=== PATIENT | female | born 1945 | race Caucasian/White ===

== ENCOUNTER → 2016-08-22 | Outpatient (CLI) | payer OTHER ==
[~2016-08-22] MED LIST: ASPI81CH2 PO; CLON1TAB21 PO; CYAN3INJ; DUONEB 0.5-2.5MG/3ML; ERGO1CAP35 PO; FERR325T5 PO; FURO-85 PO; IPRA1AER2 INH; MELATAB2 PO; NITR0.4S UT; NRT/50 PO; NSNN50; RANI1TAB; RANI1TAB77 PO; RQP/2 PO; TIOTCAP INH; TNR25X PO; TOLT1TAB PO; TRAM-453 PO; VENL150T33 PO
--- NOTE | 2016-08-22 10:45 | DIAGNOSTIC IMAGING REPORT ---
RIGHT HAND MIN 3 VIEWS ROUTINE CLINICAL HISTORY: Right hand pain COMPARISON: None. DISCUSSION: The bones are osteopenic. There are severe osteoarthritic changes at the level of the first carpal metacarpal joint. No acute fractures are visualized. There is no erosive disease. IMPRESSION: 1. Osteopenia 2. No acute fractures 3. Severe osteoarthritic changes at the level of the first carpometacarpal joint Electronically signed by: Bryant Calle M.D. 08/22/2016 10:43 AM Dictated Date/Time: 08/22/2016 10:42 AM
--- NOTE | 2016-08-22 10:55 | DIAGNOSTIC IMAGING REPORT ---
LEFT HAND 3 VIEWS HISTORY: M48.06 Lumbar spinal [id number] Pain in joint, handM85.80 O COMPARISON: None. FINDINGS: There is no fracture or dislocation. Soft tissues are unremarkable. Diffuse osteopenia. No bony erosions identified. Severe osteoarthritis at the first carpometacarpal joint with [id number] articulation, subchondral sclerosis, and large marginal osteophytes. There is approximately 4 mm of radial subluxation of the first metacarpal in relation to the trapezium bone. Mild cartilage space narrowing seen within the DIP, PIP, and MCP joints which is also consistent with degenerative change. IMPRESSION: 1. Severe osteoarthritis at the first carpometacarpal joint. 2. No acute fractures. 3. Osteopenia. Electronically signed by: Ye Ayala M.D. 08/22/2016 10:53 AM Dictated Date/Time: 08/22/2016 10:42 AM
== END | disposition home or self-care (01) ==
LOC: C.RAD1850 10:25
PROVIDERS: ATTEND Internal Medicine Rheumatology
DX: M25.549 Pain in joints of unspecified hand (principal); M48.06 Spinal stenosis, lumbar region; M85.80 Other specified disorders of bone density and structure, unspecified site

== ENCOUNTER → 2017-06-24 | Outpatient (CLI) | payer OTHER ==
[~2017-06-24] MED LIST changes: -TOLT1TAB PO; +TOLT1TAB17 PO
--- NOTE | 2017-06-24 11:25 | DIAGNOSTIC IMAGING REPORT ---
CERVICAL SPINE 5 VIEWS CLINICAL HISTORY: Osteoarthritis. Upper extremity paresthesias. FINDINGS: AP, lateral, bilateral oblique, and odontoid views of the cervical spine are obtained. No prior studies are available for comparison at the time of dictation. The skeletal structures are osteopenic. There is no radiographic evidence of fracture or malalignment. The odontoid process and lateral masses are intact as seen on the open-mouth view. The spinolaminar line is preserved. Vertebral body height is maintained throughout the cervical spine. Minimal retrolisthesis is seen at C4-C5. Alignment is otherwise preserved. Anterior osteophytes are seen throughout. There is bilateral multilevel neural foraminal stenosis identified on the oblique views. This is greatest in the mid to lower cervical region. The spinous processes are intact. There is moderate disc space narrowing seen from C4-C5 through C6-C7. Posterior disc osteophyte complexes at these levels likely contribute to acquired compromise of the central canal. The prevertebral soft tissues are within normal limits. The patient is edentulous. Partially imaged apical lung parenchyma appears clear. IMPRESSION: 1. No acute bony abnormality is identified involving the cervical spine. 2. Osteopenia and multilevel cervical spondylosis as detailed above. Dictated: 06/24/2017 11:03 AM Transcribed: 06/24/2017 11:25 AM [facility] Electronically signed by: Alex Swift M.D. 06/24/2017 11:33 AM Dictated Date/Time: 06/24/2017 11:03 AM
== END | disposition home or self-care (01) ==
LOC: C.RAD 10:31
PROVIDERS: ATTEND Neuromusculoskeletal Medicine & OMM
DX: R20.2 Paresthesia of skin (principal); M15.9 Polyosteoarthritis, unspecified; M85.88 Other specified disorders of bone density and structure, other site; M47.812 Spondylosis without myelopathy or radiculopathy, cervical region

== ENCOUNTER → 2017-08-15 | Outpatient (CLI) | payer OTHER ==
--- NOTE | 2017-08-15 14:34 | DIAGNOSTIC IMAGING REPORT ---
MRI OF THE CERVICAL SPINE WITHOUT IV CONTRAST CLINICAL HISTORY: Cervical cord compression. COMPARISON STUDY: Radiographs of the cervical spine dated 06/24/2017. TECHNIQUE: MRI of the cervical spine is performed utilizing various T1 and T2-weighted sequences in the axial and sagittal planes. IV contrast was not administered for this examination. FINDINGS: Cervical spine: Marrow signal intensity is heterogeneous. Vertebral body height is maintained throughout the cervical spine. Minimal retrolisthesis is seen at C4-C5. Alignment is otherwise preserved. There is straightening of the cervical lordosis. The atlantodental articulation appears maintained. The spinous processes are intact. No destructive bony lesion is clearly seen. Intervertebral discs: Degenerative disc desiccation and loss of height is seen throughout the cervical spine. Loss of height is moderate to severe at C4-C5 and C7-T1. Loss of height is moderate at C5-C6 and C6-C7. Spinal cord: The visualized spinal cord is normal in morphology and signal intensity. C2-C3: A tiny posterior disc osteophyte complex is eccentric to the right. Uncovertebral and facet arthropathy cause moderate right and minimal left neural foraminal stenosis. C3-C4: A posterior disc osteophyte complex effaces the ventral subarachnoid space. Uncovertebral and facet arthropathy cause moderate left and mild to moderate right neural foraminal stenosis. C4-C5: A posterior disc osteophyte complex effaces the ventral cord. The minimum AP canal diameter measures 6 mm. Uncovertebral and facet arthropathy cause severe bilateral neural foraminal stenosis, left greater than right. C5-C6: A posterior disc osteophyte complex abuts the ventral cord. The minimum AP canal diameter measures 5 mm. Uncovertebral and facet arthropathy cause severe bilateral neural foraminal stenosis. C6-C7: A posterior disc osteophyte complex abuts the ventral cord. The minimum AP canal diameter measures 6 mm. Uncovertebral and facet arthropathy cause moderate to severe left greater than right neural foraminal stenosis. C7-T1: A posterior disc osteophyte complex abuts the ventral cord. The neural foramina are patent. Soft tissues: The prevertebral and paraspinous soft tissues are within normal limits. Brain parenchyma: Chronic lacunar infarct is suggested in the christin. The cerebellar tonsils are normal in configuration. Bilateral ocular lens implants are noted. IMPRESSION: 1. Multilevel cervical spondylosis as above. This is greatest from C4-C5 through C6-C7. See discussion for detailed level by level analysis. 2. The cervical spinal cord is normal in morphology and signal intensity. 3. No destructive bony process is seen. Dictated: 08/15/2017 2:09 PM Transcribed: 08/15/2017 2:33 PM [facility] Electronically signed by: Alex Swift M.D. 08/15/2017 2:34 PM Dictated Date/Time: 08/15/2017 2:09 PM
== END | disposition home or self-care (01) ==
LOC: C.MRI 13:06
PROVIDERS: ATTEND Orthopaedic Surgery Orthopaedic Surgery of the Spine
DX: M47.812 Spondylosis without myelopathy or radiculopathy, cervical region (principal); G95.20 Unspecified cord compression

== ENCOUNTER 2017-09-15 05:21 | Observation (INO) | payer OTHER ==
[2017-09-03 13:27] VITALS: BMI 34.0
[2017-09-03 14:53] LABS: BASO % 0.5 %; BASO ABS # 0.03 K/uL (0-0.2); EOS % 1.5 %; HEMATOCRIT 33.3 % (37-47); HEMOGLOBIN 10.5 g/dL (12.0-16.0); IG# 0.01 K/uL (0.00-0.02); LYMPH % 25.9 %; LYMPH ABS # 1.72 K/uL (1.2-3.4); MEAN CELL VOLUME 88.1 fL (80-100); MEAN CORPUSCULAR HEMOGLOBIN 27.8 pg (25-34); MEAN CORPUSCULAR HGB CONC 31.5 g/dl (32-36); MEAN PLATELET VOLUME 10.1 fL (7.4-10.4); MONO % 5.7 %; MONO ABS # 0.38 K/uL (0.11-0.59); NEUT % 66.2 %; PLATELET COUNT 321 K/uL (130-400); RED CELL DISTRIBUTION WIDTH CV 13.9 % (11.5-14.5); RED CELL DISTRIBUTION WIDTH SD 44.7 fL (36.4-46.3); WHITE BLOOD COUNT 6.64 K/uL (4.8-10.8)
[2017-09-03 15:06] LABS: PTT PATIENT 26.4 SECONDS (21.0-31.0)
[2017-09-03 15:15] LABS: CALCIUM 8.6 mg/dl (8.5-10.1); CREATININE 0.83 mg/dl (0.60-1.20); POTASSIUM 3.7 mmol/L (3.5-5.1)
--- NOTE | 2017-09-03 15:20 | PAT Medication Instructions ---
Service Date Sep 03, 2017. Current Home Medication List Aspirin (Aspirin), 1 TAB PO HS Atenolol (Atenolol), 25 MG PO HS Clonazepam (Clonazepam Odt), 1 MG PO HS Ergocalciferol (Vitamin D 18226 Unit), 1 TAB PO every other week Ferrous Sulfate (Ferrous Sulfate), 325 MG PO BID Furosemide (Lasix), 20 MG PO UD PRN for prn Home O2 Therapy (Oxygen), 2.5 LITERS NA HS Ipratropium-Albuterol (Combivent Respimat), 2 INHA INH UD PRN for prn Melatonin (Melatonin Maximum Strengt), 5 MG PO HS Nitroglycerin (Nitrostat), 0.4 MG UT PRN Nortriptyline HCl (Nortriptyline HCl), 50 MG PO HS Oxycodone/Acetaminophen 10MG/325MG (Percocet 10MG/325MG), 1 TAB PO UD PRN for Pain Ranitidine Hcl (Acid Assistant Front Office Manager Maximum Stre), 1 TAB PO UD PRN for hx gastric bypass surgery Ropinirole Hydrochloride (Requip), 2 MG PO HS Tolterodine Tartrate (Detrol), 1 MG PO BID Tramadol Hcl (Ultram), 50 MG PO UD PRN for Pain Venlafaxine Hcl (Effexor), 75 MG PO HS [Duoneb 0.5-2.5MG/3ML], Unknown Dose UD PRN for prn [b12 inj], 1 DOSE INJ 1xmonth [nasonex], 1 SPRAY MINA UD Medication Instructions For Your Scheduled Surgery - Check with surgeon and prescribing physician for instructions: Aspirin (Aspirin), 1 TAB PO HS - Continue as directed: [nasonex], 1 SPRAY MINA UD [b12 inj], 1 DOSE INJ 1xmonth Ergocalciferol (Vitamin D 68449 Unit), 1 TAB PO every other week - Hold the following medications 24 hours prior to surgery: Ropinirole Hydrochloride (Requip), 2 MG PO HS - Hold the following medications the morning of surgery: Ferrous Sulfate (Ferrous Sulfate), 325 MG PO BID Furosemide (Lasix), 20 MG PO UD PRN for prn Ranitidine Hcl (Acid Assistant Front Office Manager Maximum Stre), 1 TAB PO UD PRN for hx gastric bypass surgery Tolterodine Tartrate (Detrol), 1 MG PO BID - Take the following medications the morning of surgery with a sip of water: [Duoneb 0.5-2.5MG/3ML], Unknown Dose UD PRN for prn (if needed) Tramadol Hcl (Ultram), 50 MG PO UD PRN for Pain (okay to take up to 4 hours prior to surgery if needed) Oxycodone/Acetaminophen 10MG/325MG (Percocet 10MG/325MG), 1 TAB PO UD PRN for Pain (okay to take up to 4 hours prior to surgery if needed) Nitroglycerin (Nitrostat), 0.4 MG UT PRN (if needed) Ipratropium-Albuterol (Combivent Respimat), 2 INHA INH UD PRN for prn (if needed ) - Take the following medications as scheduled the night before surgery: [Duoneb 0.5-2.5MG/3ML], Unknown Dose UD PRN for prn (if needed) Venlafaxine Hcl (Effexor), 75 MG PO HS Tramadol Hcl (Ultram), 50 MG PO UD PRN for Pain (if needed) Oxycodone/Acetaminophen 10MG/325MG (Percocet 10MG/325MG), 1 TAB PO UD PRN for Pain (if needed) Tolterodine Tartrate (Detrol), 1 MG PO BID Ranitidine Hcl (Acid Assistant Front Office Manager Maximum Stre), 1 TAB PO UD PRN for hx gastric bypass surgery (if needed) Nortriptyline HCl (Nortriptyline HCl), 50 MG PO HS Nitroglycerin (Nitrostat), 0.4 MG UT PRN (if needed) Melatonin (Melatonin Maximum Strengt), 5 MG PO HS Home O2 Therapy (Oxygen), 2.5 LITERS NA HS Ipratropium-Albuterol (Combivent Respimat), 2 INHA INH UD PRN for prn (if needed ) Furosemide (Lasix), 20 MG PO UD PRN for prn (if needed) Ferrous Sulfate (Ferrous Sulfate), 325 MG PO BID Atenolol (Atenolol), 25 MG PO HS Clonazepam (Clonazepam Odt), 1 MG PO HS If you have any questions please call us at [phone] or [phone] or [phone]
--- NOTE | 2017-09-14 18:44 | HISTORY & PHYSICAL EXAMINATION ---
DATE OF ADMISSION: 09/15/2017 CHIEF COMPLAINT: Neck pain, arm pain, numbness, tingling and weakness. HISTORY OF PRESENT ILLNESS: Lurdes is pleasant, she is 72, complaints of numbness and tingling upper extremity, 4 months in duration without injury, worsening, a true progressive neurological deficit. She is right hand dominant. She has minimal use of her left arm. PAST MEDICAL HISTORY: Rheumatoid arthritis, depression, numbness, tingling, anxiety, positive stress test. No heart disease, kidney disease, history of carcinoma. SOCIAL HISTORY: Nonsmoker, non-ET[employer] user. PAST SURGICAL HISTORY: Include lumbar spine surgeon in the past. ALLERGIES: Negative. CURRENT MEDICATIONS: Not listed. REVIEW OF SYSTEMS: She denies any blurred vision, double vision, tinnitus, vertigo. Denies chest pain, palpitations. No asthma, wheezing, shortness of breath. No nausea, vomiting, urgency, frequency, dysuria. Major complaint is her neck, arm and upper extremity which is musculoskeletal. PHYSICAL EXAMINATION: VITAL SIGNS: Blood pressure 130/80, pulse of 80, regular. Pulse is 80 beats per minute and afebrile. CARDIAC: Normal S1, S2, no S3. LUNGS: Clear. No rales, rhonchi, or wheezing. ABDOMEN: Soft, nontender. SKIN INTEGUMENTARY: Intact. No rashes or zoster rashes. No adenopathy. EXTREMITIES: She has pain with flexion, extension of cervical spine. Positive Spurling maneuver, positive Lhermitte's sign. She has 5/5 strength on the right. NEUROLOGIC: She has weakness of the biceps, triceps and wrist extensors strength on the left. She has no upper motor or neuron issues. She has absent reflexes left upper extremity. She has loss of sensation. IMAGES: Demonstrate spinal cord compression, cervical spine,C4-C5, C5-C6, and C6-C7. IMPRESSION: Cord compression. PLAN: Includes anterior cervical discectomy and fusion C4-C5, C5-C6 and C6-C7 with iliac crest bone graft.
[~2017-09-15] VITALS: Ht 149.9 cm; Wt 76.7 kg
[2017-09-15] VITALS (15 sets, daily range): BP systolic 143–170; BP diastolic 79–104; PULSE 71–96; TEMP 36.3–37; O2SAT 93–99; Ht 149.9 cm; Wt 76.7 kg
[~2017-09-15 05:21] MED LIST changes: -CYAN3INJ; -ERGO1CAP35 PO; +ERGO500011 PO; -NSNN50; +OXGN; +OXYC-106 PO; -RANI1TAB; +RANI1TAB PO; -RANI1TAB77 PO; -TIOTCAP INH; -VENL150T33 PO; +VENL75TA4 PO; +[UNRECOGNIZED DRUG - OTHER] INJ; +nasonex NAE
[2017-09-15] MEDS ORDERED: CEFAZOLIN 2000MG IV PUSH 15 ML IV SCH (06:00)
[2017-09-15] MEDS ORDERED: SODIUM CHLORIDE 0.9% 1000ML 1,000 ML IV SCH ×2 (06:00→12:15)
[2017-09-15] MEDS ORDERED: LACTATED RINGER'S 1000ML 1,000 ML IV SCH (06:00)
[2017-09-15] MEDS ORDERED: THROMBIN FOR SOLN 20000 UNIT KIT ONE (06:50)
[2017-09-15] MEDS ORDERED: GELATIN SPONGE SZ 100 ONE (06:50)
[2017-09-15] MEDS ORDERED: BACITRACIN 50000 UNIT VIAL ONE (06:50)
[2017-09-15] MEDS ORDERED: BUPIVACAINE/EPINEPHRINE 0.5% MPF 1:200,000 30 ML VIAL ONE (06:50)
[2017-09-15] MEDS ORDERED: ONDANSETRON INJ 2 MG/ML 2 ML VIAL ONE ×2 (06:52→09:38)
[2017-09-15] MEDS ORDERED: GLYCOPYRROLATE INJ 0.2 MG/ML VIAL ONE ×2 (06:52→09:38)
[2017-09-15] MEDS ORDERED: SODIUM CHLORIDE 0.9% INJ 10 ML VIAL ONE (06:52)
[2017-09-15] MEDS ORDERED: PROPOFOL IV EMULSION 10 MG/ML 20 ML VIAL IV ONE (06:52)
[2017-09-15] MEDS ORDERED: NEOSTIGMINE METHYLSULFATE 1 MG/ML 10ML VIAL ONE (06:52)
[2017-09-15] MEDS ORDERED: FENTANYL CITRATE INJ 50 MCG/1 ML 2 ML VIAL ONE (06:52)
[2017-09-15] MEDS ORDERED: LIDOCAINE HCL 2% 2 ML VIAL (20MG/ML) ONE (06:52)
[2017-09-15] MEDS ORDERED: LARYING-O-JET KIT (LTA) ONE (06:52)
[2017-09-15] MEDS ORDERED: DEXAMETHASONE SOD INJ 4 MG/ML VIAL ONE (06:52)
[2017-09-15] MEDS ORDERED: MIDAZOLAM HCL 1 MG/ML 2ML VIAL ONE (06:52)
[2017-09-15] MEDS ORDERED: HYDROmorphone INJ 2 MG/ML SYR/VIAL ONE (06:53)
--- NOTE | 2017-09-15 07:27 | History & Physical Bridge Note ---
H&P Re-Evaluation Bridge Note: I have examined the patient, reviewed the History & Physical and in the interval since the performance of the History & Physical I have noted the following changes of clinical significance: No changes noted
[2017-09-15] MEDS ORDERED: ONDANSETRON INJ 2 MG/ML 2 ML VIAL IV PRN ×2 (08:00→10:30)
[2017-09-15] MEDS ORDERED: ATROPINE SULFATE 0.1 MG/ML 5ML SYR IV PRN (08:00)
[2017-09-15] MEDS ORDERED: PHENYLEPHRINE 100MCG/ML 5ML SYR IV PRN (08:00)
[2017-09-15] MEDS ORDERED: EpHEDrine SULFATE INJ 50 MG/ML AMP IV PRN (08:00)
[2017-09-15] MEDS ORDERED: LABETALOL HCL IV 5 MG/ML 20ML IV ONE (08:38)
[2017-09-15] MEDS ORDERED: PHENYLEPHRINE 100MCG/ML 5ML SYR ONE (09:38)
[2017-09-15] MEDS ORDERED: EpHEDrine SULFATE 50MG/5ML SYR ONE (09:38)
[2017-09-15] MEDS ORDERED: ROCURONIUM BROMIDE 10 MG/ML 5 ML VIAL IV ONE (09:57)
--- NOTE | 2017-09-15 09:58 | DIAGNOSTIC IMAGING REPORT ---
SPINE ONE VIEW, ANY LEVEL CLINICAL HISTORY: 72 years-old Female presenting with ACDF C4-7. TECHNIQUE: 2 fluoroscopic spot image(s) obtained as part of an intraoperative procedure. COMPARISON: None. FINDINGS/IMPRESSION: Postsurgical changes of anterior cervical discectomy and fusion with interbody spacers at C4-C7. C7 vertebral body is not well visualized. Grossly normal anatomic alignment. Please see surgical report for further details. Fluoroscopy dosage (mGy): 1.89. Fluoroscopy time: 6.9 seconds. Number of fluoroscopic spot images: 2. Electronically signed by: Willian Sebastian M.D. 09/15/2017 9:57 AM Dictated Date/Time: 09/15/2017 9:55 AM
--- NOTE | 2017-09-15 10:11 | [facility] Post Operative Brief Note ---
Immediate Operative Summary Operative Date Sep 15, 2017. Pre-Operative Diagnosis Degenerative Disc Disease Post-Operative Diagnosis Same as preop Procedure(s) Performed Anterior Cervical Discectomy and Fusion C4-C7 with Left Iliac Crest Bone Graft Surgeon Dr. Sona Karimi Foaming Machine Operator Surgeon(s) Angela ALONZO Estimated Blood Loss 40ml Findings Consistent with Post-Op Diagnosis Specimens None Anesthesia Type General Complication(s) none Disposition Accompanied Pt To Recover: no Disposition: Recovery Room / PACU
[2017-09-15] MEDS ORDERED: LORAZEPAM INJ 0.5 MG in SYRINGE 0.75 ML IV PRN (10:30)
[2017-09-15] MEDS ORDERED: FUROSEMIDE 20 MG TAB PO PRN (10:30)
[2017-09-15] MEDS ORDERED: RACEPINEPHRINE 2.25% NEBU SOLN 0.5 ML VIAL INH PRN (10:30)
[2017-09-15] MEDS ORDERED: DEXAMETHASONE INJ 8 MG in SYRINGE 0 ML IV PRN (10:30)
[2017-09-15] MEDS ORDERED: NALOXONE HCL 0.4 MG/1 ML VIAL/CARP IV PRN (10:30)
[2017-09-15] MEDS ORDERED: MAGNESIUM HYDROXIDE SUSP 30 ML UDC PO PRN (10:30)
[2017-09-15] MEDS ORDERED: ACETAMINOPHEN IV 1,000 MG in EMPTY BAG 0 ML IV PRN (10:30)
[2017-09-15] MEDS ORDERED: NITROGLYCERIN 0.4 MG SL PER TAB CHARGE UT PRN (10:30)
[2017-09-15] MEDS ORDERED: CEFAZOLIN IV 1,000 MG in DEXTROSE 5% 50ML 50 ML IV SCH (10:30)
[2017-09-15] MEDS ORDERED: RANITIDINE HCL 150 MG TAB PO PRN (10:30)
--- NOTE | 2017-09-15 10:47 | OPERATIVE REPORT ---
DATE OF OPERATION: 09/15/2017 PREOPERATIVE DIAGNOSIS: Spinal cord compression C4-C7, cervical spine. POSTOPERATIVE DIAGNOSIS: Same. PROCEDURE: Included anterior cervical discectomies and fusions, C5-C4, C5-C6, and C6-C7; iliac crest structure allograft, interbody spacers at the associated levels. SURGEON: Dr. Karimi. MACHINE TOOL ELECTRICIAN: Reginald Hernandez PA-C. COMPLICATIONS: Less than 50. COMPLICATIONS: None apparent. DESCRIPTION OF PROCEDURE: The patient was taken to the operating room, a general intubated anesthetic provided to the patient, placed on the operative Leland table. Traction 5 pounds placed in the cervical spine, scrubbed, prepped and draped sterile. Taped off. We commenced with a transverse skin incision roughly at the C5 vertebrae level dissecting the soft tissue. We were able to come in right at the C4-C5 level initially. We did a discectomy at C4-C5, C5-C6 and C6-C7, foraminotomies were back through the posterior longitudinal ligament. I took out every visible piece of disk complied a foraminotomy. I took out osteophytes. I was pleased with the decompression each associated area. We then went to the iliac crest. We harvested a structural autograft. Skin incision, fascial incision and harvested the bone approximately 1 cm in height, 18 mm in depth, and 14 mm across. This was morcellized and placed into the discectomy sites up at the involved levels of the spine. We then measured and used a coalition device, coalition from the [employer]. These were packed with autograft placed into the vacated discectomy sites. Screw placed up, up and down proper positioning. X-rays looked appropriate, screws were locked into place, irrigated and closed in layers cervical spine and iliac crest. Sterile dressings applied. The patient returned to PACU stable. There were no apparent interoperative complications. No medical anesthetic or orthopedic complications. Sponge and needle count correct. I attest to the content of the Intraoperative Record and any orders documented therein. Any exception s are noted below.
[2017-09-15] MEDS: HYDROmorphone INJ 2 MG/ML SYR/VIAL IV PRN ×2 (10:55→11:01)
[2017-09-15] MEDS ORDERED: HYDROmorphone INJ 1 MG/ML SYR IV PRN (11:00)
--- NOTE | 2017-09-15 11:24 | Anesthesiology Progress Note ---
Anesthesia Post Op Note Date & Time Sep 15, 2017 at 11:23 Vital Signs Pain Intensity: 5 Vital Signs Past 12 Hours Date Time Temp Pulse Resp B/P (MAP) Pulse Ox O2 Delivery O2 Flow Rate FiO2 09/15/17 11:10 82 14 168/82 95 Nasal Cannula 4 09/15/17 11:00 86 12 155/91 93 Nasal Cannula 4 09/15/17 10:50 88 21 168/93 98 Nasal Cannula 4 09/15/17 10:40 90 18 180/95 98 Oxymask 10 09/15/17 10:30 98 16 154/113 99 Oxymask 10 09/15/17 10:22 36.0 98 17 188/93 99 Oxymask 10 09/15/17 05:40 37 89 20 170/104 97 Room Air Notes Mental Status: alert / awake / arousable, participated in evaluation Pt Amnestic to Procedure: Yes Nausea / Vomiting: adequately controlled Pain: adequately controlled Airway Patency, RR, SpO2: stable & adequate BP & HR: stable & adequate Hydration State: stable & adequate Anesthetic Complications: no major complications apparent
[2017-09-15] MEDS ORDERED: IV FLUIDS COMPLETED PRN (11:45)
[2017-09-15] MEDS: HYDROmorphone INJ 0.5 MG/0.5 ML SYR IV PRN ×3 (14:46→22:17)
--- NOTE | 2017-09-15 15:00 | Anesthesiology Progress Note ---
Anesthesia Post Op Note Date & Time Sep 15, 2017 at 15:00 Vital Signs Pain Intensity: 9.0 Vital Signs Past 12 Hours Date Time Temp Pulse Resp B/P (MAP) Pulse Ox O2 Delivery O2 Flow Rate FiO2 09/15/17 14:40 36.5 84 14 150/87 98 Nasal Cannula 4.0 Humidified Oxygen 09/15/17 13:41 36.3 93 14 148/85 99 Nasal Cannula 4.0 Humidified Oxygen 09/15/17 12:55 78 14 98 Nasal Cannula 4.0 09/15/17 12:50 87 16 149/92 (111) 97 4.0 09/15/17 12:20 36.4 72 16 153/81 (105) 98 4.0 09/15/17 12:20 36.3 74 14 162/79 98 Nasal Cannula 4.0 Humidified Oxygen 09/15/17 11:50 Nasal Cannula 4.0 Humidified Oxygen 09/15/17 11:50 36.3 84 14 156/89 97 Nasal Cannula 4.0 Humidified Oxygen 09/15/17 11:50 97 Nasal Cannula 4.0 Humidified Oxygen 09/15/17 11:40 68 13 140/75 95 Nasal Cannula 4 09/15/17 11:30 36.0 79 16 158/79 95 Nasal Cannula 4 09/15/17 11:20 80 13 162/84 92 Nasal Cannula 4 09/15/17 11:10 82 14 168/82 95 Nasal Cannula 4 09/15/17 11:00 86 12 155/91 93 Nasal Cannula 4 09/15/17 10:50 88 21 168/93 98 Nasal Cannula 4 09/15/17 10:40 90 18 180/95 98 Oxymask 10 09/15/17 10:30 98 16 154/113 99 Oxymask 10 09/15/17 10:22 36.0 98 17 188/93 99 Oxymask 10 09/15/17 05:40 37 89 20 170/104 97 Room Air Notes Mental Status: alert / awake / arousable, participated in evaluation Pt Amnestic to Procedure: Yes Nausea / Vomiting: adequately controlled Pain: adequately controlled Airway Patency, RR, SpO2: stable & adequate BP & HR: stable & adequate Hydration State: stable & adequate Anesthetic Complications: no major complications apparent
[2017-09-15] MEDS: CEFAZOLIN IV 1,000 MG in SYRINGE 0 ML IV SCH ×2 (15:43→23:07)
[2017-09-15] MEDS ORDERED: NON-FORMULARY MEDICATION (Melatonin (Melatonin Maximum Strengt) 5 MG) PO SCH (21:00)
[2017-09-15] MEDS: ROPINIROLE HCL 1 MG TAB PO SCH (21:00)
[2017-09-15] MEDS ORDERED: NURSING DECISION MEDICATION ORDER SCH (21:30)
[2017-09-15] MEDS: DOCUSATE SODIUM 100 MG CAP PO SCH (21:34)
[2017-09-15] MEDS: FERROUS SULFATE 325 MG TAB PO SCH (21:34)
[2017-09-15] MEDS: VENLAFAXINE HCL XR 75 MG CAPXR PO SCH (21:34)
[2017-09-15] MEDS: ASPIRIN 81 MG CHEW PO SCH (21:35)
[2017-09-15] MEDS: CLONAZEPAM 1 MG TAB PO SCH (21:35)
[2017-09-15] MEDS: TOLTERODINE TARTRATE 1 MG TAB PO SCH (21:35)
[2017-09-15] MEDS: NORTRIPTYLINE HCL 25 MG CAP PO SCH (21:36)
[2017-09-15] MEDS: OXYCODONE HCL IR 5 MG TAB (IMMEDIATE RELEASE) PO PRN (23:04)
[2017-09-16] VITALS (19 sets, daily range): BP systolic 111–143; BP diastolic 72–85; PULSE 63–82; TEMP 36.3–36.7; O2SAT 88–99
[2017-09-16] MEDS: OXYCODONE HCL IR 5 MG TAB (IMMEDIATE RELEASE) PO PRN ×2 (06:30→10:34)
--- NOTE | 2017-09-16 08:24 | Anesthesiology Progress Note ---
Anesthesia Post Op Note Date & Time Sep 16, 2017 at 08:22 Vital Signs Pain Intensity: 2 Vital Signs Past 12 Hours Date Time Temp Pulse Resp B/P (MAP) Pulse Ox O2 Delivery O2 Flow Rate FiO2 09/16/17 07:45 91 Room Air 09/16/17 07:31 73 16 93 Room Air 09/16/17 06:31 36.3 63 16 121/80 94 Room Air 09/16/17 04:50 36.5 65 16 137/82 98 Nasal Cannula 2.0 Humidified Oxygen 09/16/17 03:25 16 88 Room Air 09/16/17 02:58 36.4 81 18 127/79 (95) 93 Nasal Cannula 2.0 09/15/17 23:16 88 16 94 Nasal Cannula 2.0 09/15/17 22:52 36.5 88 18 147/86 (106) 93 Nasal Cannula 2.0 Trach Collar 09/15/17 22:50 Nasal Cannula 2.0 Humidified Oxygen 09/15/17 20:50 36.6 92 16 143/86 98 Nasal Cannula 2.0 Humidified Oxygen Notes Mental Status: alert / awake / arousable Pt Amnestic to Procedure: Yes Nausea / Vomiting: adequately controlled Pain: adequately controlled Airway Patency, RR, SpO2: stable & adequate BP & HR: stable & adequate Hydration State: stable & adequate Anesthetic Complications: no major complications apparent Anesthetic Complications: pt complained of waking up with 10/10 pain after procedure; Now pain is manageable.
[2017-09-16] MEDS: CEFAZOLIN IV 1,000 MG in SYRINGE 0 ML IV SCH (08:34)
[2017-09-16] MEDS: FLUTICASONE PROPIONATE NA SPR 16 GM BTL SCH (08:34)
[2017-09-16] MEDS: DOCUSATE SODIUM 100 MG CAP PO SCH ×2 (08:34→21:48)
[2017-09-16] MEDS: TOLTERODINE TARTRATE 1 MG TAB PO SCH ×2 (08:35→21:49)
[2017-09-16] MEDS: FERROUS SULFATE 325 MG TAB PO SCH ×2 (08:35→21:48)
[2017-09-16] MEDS: HYDROmorphone INJ 0.5 MG/0.5 ML SYR IV PRN (14:05)
[2017-09-16] MEDS: ROPINIROLE HCL 1 MG TAB PO SCH (21:00)
[2017-09-16] MEDS: VENLAFAXINE HCL XR 75 MG CAPXR PO SCH (21:49)
[2017-09-16] MEDS: NORTRIPTYLINE HCL 25 MG CAP PO SCH (21:50)
[2017-09-16] MEDS: ASPIRIN 81 MG CHEW PO SCH (21:50)
[2017-09-16] MEDS: CLONAZEPAM 1 MG TAB PO SCH (21:52)
[2017-09-17] VITALS (24 sets, daily range): BP systolic 121–152; BP diastolic 73–84; PULSE 57–109; TEMP 36.4–36.9; O2SAT 88–98
[2017-09-17] MEDS: OXYCODONE HCL IR 5 MG TAB (IMMEDIATE RELEASE) PO PRN ×3 (00:29→20:59)
[2017-09-17] MEDS ORDERED: BISACODYL 5 MG TABEC PO PRN (06:00)
[2017-09-17] MEDS ORDERED: BISACODYL 10 MG SUPP PR PRN (06:00)
--- NOTE | 2017-09-17 07:41 | ORTHOPEDICS PROGRESS NOTE ---
DATE: 09/17/2017 SUBJECTIVE: She is alert, oriented difficulty swallowing, swelling to her extremities, significant rebound pain. OBJECTIVE: Vital signs stable, afebrile. ASSESSMENT: Postop recovery with swelling in the oral airway. DISPOSITION: We will keep her another 24 hours, put an order for rehab, place her on some Decadron. I am optimistic this will clear up within the next 24-48 hours. She is not stable for discharge.
[2017-09-17] MEDS: FERROUS SULFATE 325 MG TAB PO SCH ×2 (08:19→21:01)
[2017-09-17] MEDS: DOCUSATE SODIUM 100 MG CAP PO SCH ×2 (08:19→21:00)
[2017-09-17] MEDS: FLUTICASONE PROPIONATE NA SPR 16 GM BTL SCH (08:19)
[2017-09-17] MEDS: TOLTERODINE TARTRATE 1 MG TAB PO SCH ×2 (08:21→21:00)
[2017-09-17] MEDS: HYDROmorphone INJ 0.5 MG/0.5 ML SYR IV PRN (10:59)
[2017-09-17] MEDS: DEXAMETHASONE INJ 8 MG in SYRINGE 0 ML IV SCH ×3 (12:37→23:42)
--- NOTE | 2017-09-17 16:14 | Discharge Instructions ---
Discharge Instructions Date of Service Sep 17, 2017. Admission Reason for Admission: Cervical Spondylosis, Cord Compression Discharge Discharge Diagnosis / Problem: same Discharge Goals Goal(s): Improve function Activity Recommendations Activity Limitations: as noted below Lifting Limitations: no more than 5 pounds, gradually increase as tolerated . Current Hospital Diet Patient's current hospital diet: Clear Liquid Diet Discharge Diet Recommended Diet: Clear Liquid Diet, Diabetes Type 2 Diet Procedures Procedures Performed: Anterior Cervical Discectomy and Fusion C4-C7 with Left Iliac Crest Bone Graft Pending Studies Studies pending at discharge: no Medical Emergencies . Who to Call and When: Medical Emergencies: If at any time you feel your situation is an emergency, please call 911 immediately. . Non-Emergent Contact Non-Emergency issues call your: Primary Care Provider . "Provider Documentation" section prepared by Alexis Karimi. . VTE Core Measure Inpt VTE Proph given/why not?: Treatment not indicated
[2017-09-17] MEDS: CLONAZEPAM 1 MG TAB PO SCH (20:59)
[2017-09-17] MEDS: ROPINIROLE HCL 1 MG TAB PO SCH (21:00)
[2017-09-17] MEDS: ASPIRIN 81 MG CHEW PO SCH (21:01)
[2017-09-17] MEDS: VENLAFAXINE HCL XR 75 MG CAPXR PO SCH (21:01)
[2017-09-17] MEDS: NORTRIPTYLINE HCL 25 MG CAP PO SCH (21:01)
[2017-09-18] VITALS (9 sets, daily range): BP systolic 127–149; BP diastolic 75–84; PULSE 55–75; TEMP 36.5–36.7; O2SAT 65–96
[2017-09-18] MEDS: DEXAMETHASONE INJ 8 MG in SYRINGE 0 ML IV SCH ×2 (05:52→11:41)
[2017-09-18] MEDS: FLUTICASONE PROPIONATE NA SPR 16 GM BTL SCH (09:00)
[2017-09-18] MEDS: DOCUSATE SODIUM 100 MG CAP PO SCH (09:00)
[2017-09-18] MEDS: FERROUS SULFATE 325 MG TAB PO SCH (09:00)
[2017-09-18] MEDS: TOLTERODINE TARTRATE 1 MG TAB PO SCH (09:11)
[2017-09-18] MEDS: OXYCODONE HCL IR 5 MG TAB (IMMEDIATE RELEASE) PO PRN ×2 (09:12→13:33)
--- NOTE | 2017-09-18 16:19 | DISCHARGE SUMMARY ---
HISTORY OF PRESENT ILLNESS: Lurdes was seen and evaluated on rounds here today. She is improving, better motion, decreased pain, decreased upper extremity pain and neck pain. Vital signs stable. No confusion, no chest pain or shortness of breath. Wound clean. ASSESSMENT: Reconstructive cervical spine surgery, now day #3 postop. Doing well short run. DISPOSITION: Includes a rehab [facility], appropriate positioning, follow up in the office in about 10 days. Instructions given, precautions given. Cervical collar is to be worn when ambulatory.
[2017-10-02] MEDS ORDERED: CYANOCOBALAMIN 1000 MCG/ML VIAL IM SCH (09:00)
== END 2017-09-18 15:40 ==
LOC: C.ACU 05:21 → C.3E 10:23 → ENRESERV 11:21
PROVIDERS: ADMIT Orthopaedic Surgery Orthopaedic Surgery of the Spine; ATTEND Orthopaedic Surgery Orthopaedic Surgery of the Spine
DX: M47.892 Other spondylosis, cervical region (principal); J44.9 Chronic obstructive pulmonary disease, unspecified; G47.33 Obstructive sleep apnea (adult) (pediatric); I10 Essential (primary) hypertension; E78.5 Hyperlipidemia, unspecified; K21.9 Gastro-esophageal reflux disease without esophagitis; D64.9 Anemia, unspecified; M06.9 Rheumatoid arthritis, unspecified; F32.9 Major depressive disorder, single episode, unspecified; Z91.040 Latex allergy status

== ENCOUNTER → 2017-12-16 | Outpatient (CLI) | payer OTHER ==
--- NOTE | 2017-12-16 11:28 | DIAGNOSTIC IMAGING REPORT ---
MRI OF THE RIGHT SHOULDER CLINICAL HISTORY: Right shoulder pain. Limited range of motion. COMPARISON STUDY: Radiographs of the right shoulder dated 11/27/2017. TECHNIQUE: MRI of the right shoulder was performed utilizing various T1 and T2 weighted sequences in the axial, sagittal, coronal planes. IV contrast was not administered for this examination. The examination is significantly compromised by motion artifact. FINDINGS: Rotator cuff: There is tendinopathy of the supraspinatus tendon with extensive partial thickness tearing. There is a large full-thickness tear of the supraspinatus tendon near the musculotendinous junction. This measures at least 5 mm in length and 7 mm in AP diameter. No musculotendinous retraction is seen. There is tendinopathy with partial is tearing of both the subscapularis and infraspinatus tendons. The teres minor is intact. There is subacromial and subdeltoid bursal fluid. Productive degenerative change is seen at the acromioclavicular joint. Biceps tendon: There is tendinopathy with high-grade partial-thickness tearing of the long head of the biceps tendon. The tendon remains within the bicipital groove. The anchor is maintained. Labrum: There is circumferential tearing/maceration of the glenoid labrum. Shoulder joint: There is no joint effusion. There is thinning of the articular cartilage along the glenoid and humeral head. No full-thickness cartilage defect is identified. Mild arthritic change and marrow edema seen in the greater tuberosity. There is no MRI evidence of fracture. An os acromiale is incidentally noted. There is mild superior subluxation of the humeral head. Musculature and soft tissues: There is generalized atrophy of the regional musculature. This is asymmetrically greater in the supraspinatus. Minimal intramuscular edema is suggested within the body of supraspinatus. IMPRESSION: 1. Motion compromised examination. 2. There is tendinopathy of the supraspinous tendon with extensive partial thickness tearing. A large full-thickness tear is seen as detailed above. No musculotendinous retraction is identified. 3. There is tendinopathy with partial-thickness tearing of the subscapularis and infraspinatus tendons. 4. There is tendinopathy with high-grade partial thickness tearing of the long head of the biceps tendon. 5. There is circumferential maceration/tearing of the labrum. 6. Arthritic change as above. 7. There is slightly asymmetric atrophy of the supraspinatus muscle with mild intramuscular edema identified. Electronically signed by: Alex Swift M.D. 12/16/2017 11:26 AM Dictated Date/Time: 12/16/2017 11:16 AM
== END | disposition home or self-care (01) ==
LOC: C.MRI 10:25
PROVIDERS: ATTEND Orthopaedic Surgery Orthopaedic Surgery of the Spine
DX: M19.011 Primary osteoarthritis, right shoulder (principal); M75.91 Shoulder lesion, unspecified, right shoulder; S46.911A Strain of unspecified muscle, fascia and tendon at shoulder and upper arm level, right arm, initial encounter; X58.XXXA Exposure to other specified factors, initial encounter

== ENCOUNTER → 2017-12-23 | Outpatient (CLI) | payer OTHER ==
[2017-12-23 15:58] LABS: BASO % 0.1 %; BASO ABS # 0.01 K/uL (0-0.2); EOS % 1.2 %; HEMATOCRIT 37.1 % (37-47); IG# 0.02 K/uL (0.00-0.02); LYMPH ABS # 1.71 K/uL (1.2-3.4); MEAN CELL VOLUME 86.9 fL (80-100); MEAN CORPUSCULAR HEMOGLOBIN 28.1 pg (25-34); MEAN CORPUSCULAR HGB CONC 32.3 g/dl (32-36); MEAN PLATELET VOLUME 9.8 fL (7.4-10.4); MONO ABS # 0.34 K/uL (0.11-0.59); NEUT % 74.5 %; NEUT ABS # 6.39 K/uL (1.4-6.5); PLATELET COUNT 342 K/uL (130-400); RED CELL DISTRIBUTION WIDTH CV 15.3 % (11.5-14.5); RED CELL DISTRIBUTION WIDTH SD 48.5 fL (36.4-46.3); WHITE BLOOD COUNT 8.57 K/uL (4.8-10.8)
[2017-12-23 16:28] LABS: BLOOD UREA NITROGEN 26 mg/dl (7-18); CALCIUM 8.4 mg/dl (8.5-10.1); CARBON DIOXIDE 25 mmol/L (21-32); GLUCOSE 160 mg/dl (70-99); POTASSIUM 3.7 mmol/L (3.5-5.1); SODIUM 141 mmol/L (136-145)
== END | disposition home or self-care (01) ==
LOC: C.CPL 15:27
PROVIDERS: ATTEND Orthopaedic Surgery
DX: Z01.812 Encounter for preprocedural laboratory examination (principal); Z01.810 Encounter for preprocedural cardiovascular examination; M75.101 Unspecified rotator cuff tear or rupture of right shoulder, not specified as traumatic

== ENCOUNTER 2018-09-25 10:31 | Inpatient (IN) ==
--- NOTE | 2018-09-02 12:44 | PAT Medication Instructions ---
Medication Instructions Date of Service September 02, 2018 Home Medications HOME O2 THERAPY (Oxygen) 2.5 liters HS aspirin 81 mg PO HS atenolol 25 mg PO HS clonazepam 1 mg PO HS cyanocobalamin (vitamin B-12) 1 dose IM MONTHLY ergocalciferol (vitamin D2) 50,000 unit PO UD ferrous sulfate 325 mg PO BID furosemide 20 mg PO DAILY NEEDED ipratropium-albuterol 3 ml INHALATION QID NEEDED ipratropium-albuterol [Combivent] 1 puff INHALATION Q6H NEEDED ketorolac 10 mg PO Q8H NEEDED melatonin 5 mg PO HS NEEDED mometasone 2 spray INTRANASAL DAILY nortriptyline 50 mg PO HS oxycodone-acetaminophen 1 tab PO Q6H NEEDED ranitidine HCl 150 mg PO Q2D ropinirole 2 mg PO HS tolterodine [Detrol] 1 mg PO BID tramadol 50 mg PO Q6H NEEDED venlafaxine 75 mg PO HS Continue as directed HOME O2 THERAPY (Oxygen) 2.5 liters HS cyanocobalamin (vitamin B-12) 1 dose IM MONTHLY ergocalciferol (vitamin D2) 50,000 unit PO UD ASK your surgeon for instructions ketorolac 10 mg PO Q8H NEEDED STOP taking 24 hours before surgery ropinirole 2 mg PO HS DO NOT take the morning of surgery ferrous sulfate 325 mg PO BID furosemide 20 mg PO DAILY NEEDED mometasone 2 spray INTRANASAL DAILY tolterodine [Detrol] 1 mg PO BID Take morning of surgery With a small sip of water, OTHERWISE NOTHING TO EAT OR DRINK AFTER MIDNIGHT: ipratropium-albuterol 3 ml INHALATION QID NEEDED ipratropium-albuterol [Combivent] 1 puff INHALATION Q6H NEEDED oxycodone-acetaminophen 1 tab PO Q6H NEEDED ranitidine HCl 150 mg PO Q2D tramadol 50 mg PO Q6H NEEDED Take evening before surgery aspirin 81 mg PO HS atenolol 25 mg PO HS clonazepam 1 mg PO HS ferrous sulfate 325 mg PO BID melatonin 5 mg PO HS NEEDED nortriptyline 50 mg PO HS oxycodone-acetaminophen 1 tab PO Q6H NEEDED tolterodine [Detrol] 1 mg PO BID tramadol 50 mg PO Q6H NEEDED venlafaxine 75 mg PO HS Other Notes If you have any questions please call us at [phone] or [phone] or [phone] or [phone]
--- NOTE | 2018-09-02 13:33 | PAT Medication Instructions ---
Medication Instructions Date of Service September 02, 2018 Other Notes Home Medications HOME O2 THERAPY (Oxygen) 2.5 liters HS aspirin 81 mg PO HS atenolol 25 mg PO HS clonazepam 1 mg PO HS cyanocobalamin (vitamin B-12) 1 dose IM MONTHLY ergocalciferol (vitamin D2) 50,000 unit PO UD ferrous sulfate 325 mg PO BID furosemide 20 mg PO DAILY NEEDED ipratropium-albuterol 3 ml INHALATION QID NEEDED ipratropium-albuterol [Combivent] 1 puff INHALATION Q6H NEEDED ketorolac 10 mg PO Q8H NEEDED melatonin 5 mg PO HS NEEDED mometasone 2 spray INTRANASAL DAILY nortriptyline 50 mg PO HS oxycodone-acetaminophen 1 tab PO Q6H NEEDED ranitidine HCl 150 mg PO Q2D ropinirole 2 mg PO HS tolterodine [Detrol] 1 mg PO BID tramadol 50 mg PO Q6H NEEDED venlafaxine 75 mg PO HS Continue as directed HOME O2 THERAPY (Oxygen) 2.5 liters HS cyanocobalamin (vitamin B-12) 1 dose IM MONTHLY ergocalciferol (vitamin D2) 50,000 unit PO UD ASK your surgeon for instructions ketorolac 10 mg PO Q8H NEEDED STOP taking 24 hours before surgery ropinirole 2 mg PO HS DO NOT take the morning of surgery ferrous sulfate 325 mg PO BID furosemide 20 mg PO DAILY NEEDED tolterodine [Detrol] 1 mg PO BID Take morning of surgery With a small sip of water, OTHERWISE NOTHING TO EAT OR DRINK AFTER MIDNIGHT: ipratropium-albuterol 3 ml INHALATION QID NEEDED (if needed) ipratropium-albuterol [Combivent] 1 puff INHALATION Q6H NEEDED (if needed) oxycodone-acetaminophen 1 tab PO Q6H NEEDED (okay to take up to 4 hours prior to surgery if needed) ranitidine HCl 150 mg PO Q2D tramadol 50 mg PO Q6H NEEDED (okay to take up to 4 hours prior to surgery if needed) mometasone 2 spray INTRANASAL DAILY Take evening before surgery aspirin 81 mg PO HS atenolol 25 mg PO HS clonazepam 1 mg PO HS ferrous sulfate 325 mg PO BID melatonin 5 mg PO HS NEEDED (if needed) nortriptyline 50 mg PO HS oxycodone-acetaminophen 1 tab PO Q6H NEEDED (if needed) tolterodine [Detrol] 1 mg PO BID tramadol 50 mg PO Q6H NEEDED (if needed) venlafaxine 75 mg PO HS Other Notes If you have any questions please call us at [phone] or [phone] or [phone] or [phone]
--- NOTE | 2018-09-02 13:50 | Anesthesiology Consultation ---
Date of Service September 02, 2018 Assessment & Plan (1) Encounter for pre-operative examination: Chart Review Chart Review: Acceptable Risk for Surgery and Patient seen in Pre Admission Testing Consults Requested none Teaching & Discussion Pre-Anesthesia Teaching/Discussion Notes: Instructed NPO after midnight before surgery, except medications with 15 cc of water. Medication instructions provided according to the PAT guidelines. History Surgery Operation Date: 09/25/18 10:00 Proposed Procedures p Left Total Knee Arthroplasty - Reginald Dempsey DO Height/Weight Height: 4 ft 11 in Weight: 70.1 kg Allergies Allergy/AdvReac Type Severity Reaction Status Date / Time No Known Drug Allergies Allergy Unknown . Verified 08/26/18 10:26 Medications Home Medications Medication Instructions Recorded Confirmed Last Taken HOME O2 THERAPY (Oxygen) 2.5 liters NA HS #0 btl 09/03/17 08/26/18 Unknown aspirin 81 mg PO HS 08/26/18 08/26/18 Unknown atenolol 25 mg PO HS 08/26/18 08/26/18 Unknown clonazepam 1 mg PO HS 08/26/18 08/26/18 Unknown cyanocobalamin (vitamin B-12) 1 dose IM MONTHLY 08/26/18 08/26/18 Unknown ergocalciferol (vitamin D2) 50,000 unit PO UD 08/26/18 08/26/18 Unknown ferrous sulfate 325 mg PO BID 08/26/18 08/26/18 Unknown furosemide 20 mg PO DAILY PRN 08/26/18 08/26/18 Unknown ipratropium-albuterol 3 ml INHALATION QID PRN 08/26/18 08/26/18 Unknown ipratropium-albuterol [Combivent 1 puff INHALATION Q6H PRN 08/26/18 08/26/18 Unknown Respimat] ketorolac 10 mg PO Q8H PRN 08/26/18 08/26/18 Unknown melatonin 5 mg PO HS PRN 08/26/18 08/26/18 Unknown mometasone 2 spray INTRANASAL DAILY 08/26/18 08/26/18 Unknown nortriptyline 50 mg PO HS 08/26/18 08/26/18 Unknown oxycodone-acetaminophen 1 tab PO Q6H PRN 08/26/18 08/26/18 Unknown ranitidine HCl 150 mg PO Q2D 08/26/18 08/26/18 Unknown ropinirole 2 mg PO HS 08/26/18 08/26/18 Unknown tolterodine [Detrol] 1 mg PO BID 08/26/18 08/26/18 Unknown tramadol 50 mg PO Q6H PRN 08/26/18 08/26/18 Unknown venlafaxine 75 mg PO HS 08/26/18 08/26/18 Unknown loperamide [Imodium A-D] 2 mg PO Q3H PRN 09/02/18 09/02/18 Unknown Past Medical History Medical History Anemia Asthma Patient denies, thinks it was from working at [employer] COPD (chronic obstructive pulmonary disease) Cervical cord compression with myelopathy Depression Diarrhea chronic since gastric bypass Dyslipidemia Fusion of spine CERVICAL GERD (gastroesophageal reflux disease) Hypertension SHERIN (obstructive sleep apnea) Osteoarthritis Osteopenia Restless leg syndrome Urge incontinence Past Surgical History Surgical History H/O cervical discectomy she thinks History of colonoscopy History of discectomy LUMBAR, 1979 History of gastric bypass 2010 History of repair of rotator cuff Right Hx of breast reduction, elective Status post panniculectomy Past Anesthesia History No Hx of Anesthesia Complications and No Family Hx of Anesthesia Complications History of PONV No Motion Sickness Screening History of Motion Sickness: No Social History Smoking Status: Former smoker tobacco type: cigarettes Smoking cigarettes per day: QUIT >10 YEARS AGO. Smoked 5 ppd x 50 years Do You Dip or Chew Tobacco: No Hx Alcohol Use: No Hx Substance Use: No substance use type: does not use Exercise / Class Metabolic Activity II 4-5 Yardwork/Stairs/Walk up hill (Able to climb FOS. Denies CP or SOB(?).) Review of Systems Patient denies chest pain, shortness of breath, dyspnea on exertion, reflux, cough, wheezing, palpitations. +joint pain (knees, shoulders, wrists) Physical Exam Vital Signs BP: 178/70 P: 53 R: 18 T: 97.9 SPO2: 98% on RA ENMT Mouth: + dentures (Upper and Lower) and + edentulous Thyromental Distance: > or= 3.5 Finger Breadths (3.5) Mallampati Class: I Neck normal visual inspection and trachea midline; neck extension not limited Respiratory normal respiratory effort Auscultation: lungs clear to auscultation bilaterally Cardiovascular Rate/Rhythm: regular rate and regular rhythm Heart Sounds: no murmur Vessels: no carotid bruit Neurologic moves all extremities Psychiatric Orientation: alert and oriented x 3 Testing Electrocardiogram Date: 09/02/18 Findings: + NSR @ (60) Premature supraventricular complexes. When compared with ECG of 12/23/17, Premature supraventricular complexes are now present. Ventricular rate has decreased by 37 bpm. Nonspecific T wave abnormality no longer evident in lateral leads. Chest X-Ray Date: 09/02/18 Findings: + NAD FINDINGS: Cardiomediastinal and hilar silhouettes appear unchanged. Subsegmental bibasilar opacities suggest atelectasis. No pneumothorax, pleural effusion, lobar airspace consolidation or overt pulmonary edema. Degenerative changes are seen about the shoulders and spine. Fusion hardware noted about the lower cervical spine. IMPRESSION: No acute process. Laboratory Results 09/02/18 14:11 09/02/18 14:11 Blood Type A Positive 09/02/18 14:11 Antibody Screen NEGATIVE 09/02/18 14:11 PT 10.4 Seconds (9.0-12.0) 09/02/18 14:11 INR 1.0 (0.9-1.1) 09/02/18 14:11 APTT 24.1 Seconds (21.0-31.0) 09/02/18 14:11
--- NOTE | 2018-09-02 14:41 | XRay Report ---
XR chest Pre-admission PA/Lat HISTORY: 72 years-old Female pat preoperative exam. No acute chest complaints COMPARISON: Chest radiographs 06/05/2014 TECHNIQUE: PA and lateral views of the chest FINDINGS: Cardiomediastinal and hilar silhouettes appear unchanged. Subsegmental bibasilar opacities suggest at electasis. No pneumothorax, pleural effusion, lobar airspace consolidation or overt pulmonary edema. Degenerative changes are seen about the shoulders and spine. Fusion hardware noted about the lower ce rvical spine. IMPRESSION: No acute process. The above report was generated using voice recognition software. It may contain grammatical, syntax o r spelling errors. Electronically signed by: Onofre Chavez M.D. 09/02/2018 2:40 PM
[2018-09-02 14:56] LABS: Basophils # (auto) 0.03 K/uL (0-0.2); Basophils % (auto) 0.6 %; Eosinophils # (auto) 0.09 K/uL (0-0.5); Eosinophils % (auto) 1.8 %; Hematocrit (blood only) 32.4 % (37-47); Hemoglobin 10.1 g/dL (12.0-16.0); Lymphocytes # (auto) 1.82 K/uL (1.2-3.4); Lymphocytes % (auto) 36.5 %; Mean Corpuscular Hgb Conc 31.2 g/dL (32-36); Mean Corpuscular Volume 87.1 fL (80-100); Mean Platelet Volume 10.1 fL (7.4-10.4); Monocytes # (auto) 0.34 K/uL (0.11-0.59); Monocytes % (auto) 6.8 %; Neutrophils # (auto) 2.71 K/uL (1.4-6.5); Neutrophils % (auto) 54.3 %; Platelet Count 258 K/uL (130-400); RDW Coefficient of Variation 14.3 % (11.5-14.5); RDW Standard Deviation 45.4 fL (36.4-46.3); Red Blood Count 3.72 M/uL (4.2-5.4); White Blood Count 4.99 K/uL (4.8-10.8)
[2018-09-02 15:02] LABS: Partial Thromboplastin Ratio 0.9; Partial Thromboplastin Time 24.1 Seconds (21.0-31.0); Prothrombin Time 10.4 Seconds (9.0-12.0)
[2018-09-02 15:15] LABS: BUN Creatinine Ratio 15.5 (10-20); Calcium 8.4 mg/dl (8.5-10.1); Est GFR (African American) 64.3; Est GFR (Non-African American) 55.5; Potassium 3.7 mmol/L (3.5-5.1)
--- NOTE | 2018-09-23 07:26 | History & Physical Report ---
Date of Service September 23, 2018 Assessment & Plan (1) Osteoarthritis of left knee: We will proceed with a left total knee arthroplasty. Postoperatively she will be placed on aspirin for DVT prophylaxis. She does have a history of a gastric bypass surgery and we talked about that. I will going to be careful with postoperative pain medication she does get pain medications from her primary care physician. She will be kept in the hospital overnight for postop medical management. She plans to use [facility] upon discharge. Present on Admission?: Yes History of Present Illness Chief Complaint: Primary osteoarthritis of the left knee Primary Care Provider: Mimi De La Vega MD Lurdes is a pleasant 72-year-old female who presented my office with chronic increasing left knee pain. X-rays and clinical examination have been diagnostic for primary osteoarthritis of the left knee. After failing extensive conservative treatment, she is elected to proceed with a left total knee arthroplasty. Allergies Allergy/AdvReac Type Severity Reaction Status Date / Time No Known Drug Allergies Allergy Unknown . Verified 08/26/18 10:26 Home Medications Home Medications Medication Instructions Recorded Confirmed Type HOME O2 THERAPY (Oxygen) 2.5 liters NA HS #0 btl 09/03/17 08/26/18 History aspirin 81 mg PO HS 08/26/18 08/26/18 History atenolol 25 mg PO HS 08/26/18 08/26/18 History clonazepam 1 mg PO HS 08/26/18 08/26/18 History cyanocobalamin (vitamin B-12) 1 dose IM MONTHLY 08/26/18 08/26/18 History ergocalciferol (vitamin D2) 50,000 unit PO UD 08/26/18 08/26/18 History ferrous sulfate 325 mg PO BID 08/26/18 08/26/18 History furosemide 20 mg PO DAILY PRN 08/26/18 08/26/18 History ipratropium-albuterol 3 ml INHALATION QID PRN 08/26/18 08/26/18 History ipratropium-albuterol [Combivent 1 puff INHALATION Q6H PRN 08/26/18 08/26/18 History Respimat] ketorolac 10 mg PO Q8H PRN 08/26/18 08/26/18 History melatonin 5 mg PO HS PRN 08/26/18 08/26/18 History mometasone 2 spray INTRANASAL DAILY 08/26/18 08/26/18 History nortriptyline 50 mg PO HS 08/26/18 08/26/18 History oxycodone-acetaminophen 1 tab PO Q6H PRN 08/26/18 08/26/18 History ranitidine HCl 150 mg PO Q2D 08/26/18 08/26/18 History ropinirole 2 mg PO HS 08/26/18 08/26/18 History tolterodine [Detrol] 1 mg PO BID 08/26/18 08/26/18 History tramadol 50 mg PO Q6H PRN 08/26/18 08/26/18 History venlafaxine 75 mg PO HS 08/26/18 08/26/18 History loperamide [Imodium A-D] 2 mg PO Q3H PRN 09/02/18 09/02/18 History Past Med/Surg History Medical History Anemia Asthma Patient denies, thinks it was from working at [employer] COPD (chronic obstructive pulmonary disease) Cervical cord compression with myelopathy Depression Diarrhea chronic since gastric bypass Dyslipidemia Fusion of spine CERVICAL GERD (gastroesophageal reflux disease) Hypertension SHERIN (obstructive sleep apnea) Osteoarthritis Osteopenia Restless leg syndrome Urge incontinence Surgical History H/O cervical discectomy she thinks History of colonoscopy History of discectomy LUMBAR, 1979 History of gastric bypass 2010 History of repair of rotator cuff Right Hx of breast reduction, elective Status post panniculectomy Social History Current Living Situation: Alone Other Information That Helps Us Care for You: No Feels Safe at Home: Yes Safety Concerns: Feels Safe At This Time Smoking Status: Former smoker Tobacco Type: cigarettes Cigarettes per Day: QUIT >10 YEARS AGO. Smoked 5 ppd x 50 years Do You Dip or Chew Tobacco: No Hx Alcohol Use: No Hx Substance Use: No Beliefs That Will Affect Care: None Preferred Language: Mongolian Communication Ability: Effective Recruitment Director Required: No Review of Systems All systems reviewed & are unremarkable except as noted in HPI & below Physical Exam 2 Constitutional: WD/WN, vitals as above Eyes: PERRL, conjunctivae normal, anicteric sclerae ENMT: external ear and nose normal, oropharynx normal Neck: trachea midline, no thyromegaly Respiratory: normal respiratory effort Cardiovascular: RRR, no murmur, no edema Gastrointestinal (Abdomen): normal bowel sounds, soft, nontender, no hepatosplenomegaly Musculoskeletal: On physical examination of the left knee there is a trace effusion. There is near full range of motion and no evidence of instability. There is significant tenderness palpation along the medial and lateral joint lines and over the distal femoral condyles. Psychiatric: A+Ox3, euthymic affect Results & Data Diagnostic Findings Radiographs of the left knee demonstrate advanced osteoarthritis with joint space narrowing osteophyte formation and [id number] articulation.
[~2018-09-25 10:31] MED LIST changes: +ACETAMINOPHEN 500 MG TAB PO SCH; -ASPI81CH2 PO; +BUPIVACAINE 0.5 % 5 MG/1 ML PF 10ML VIAL ONE; +CEFAZOLIN 2000MG 2,000 MG/15 ML SYR IV SCH; -CLON1TAB21 PO; -DUONEB 0.5-2.5MG/3ML; -ERGO500011 PO; +FAMOTIDINE 20 MG TAB PO SCH; -FERR325T5 PO; -FURO-85 PO; +GABAPENTIN 300 MG PO SCH; -IPRA1AER2 INH; +LR 500ML BOLUS, THEN 15ML/HR IV SCH; +LR 60ML/HR IV SCH; -MELATAB2 PO; -NITR0.4S UT; -NRT/50 PO; -OXGN; -OXYC-106 PO; -RANI1TAB PO; +ROPIVACAINE 0.5% 5 MG/ML 30 ML VIAL ONE; +ROPIVACAINE 0.5% HCL/PF 150 MG, BUPIVACAINE 0.5% MPF 30 ML, EPINEPHrine 30MG/30ML (OR U... INFIL SCH; -RQP/2 PO; -TNR25X PO; -TOLT1TAB17 PO; -TRAM-453 PO; +TRANEXAMIC ACID 1,000 MG **IV Intra-op IV SCH; +TRANEXAMIC ACID 1,000 MG **IV Pre-op IV SCH; -VENL75TA4 PO; -[UNRECOGNIZED DRUG - OTHER] INJ; -nasonex NAE
[2018-09-25] MEDS ORDERED: MIDAZOLAM HCL 1 MG/ML 2ML VIAL ONE (12:01)
[2018-09-25] MEDS ORDERED: fentaNYL citrate 100 MCG/2 ML VIAL ONE (12:01)
[2018-09-25] MEDS ORDERED: PROPOFOL IV EMULSION 10 MG/ML 20 ML VIAL IV ONE (12:02)
[2018-09-25] MEDS ORDERED: ORTHO JOINT ANESTHETIC ONE (12:45)
[2018-09-25] MEDS ORDERED: POVIDONE-IODINE OP SOLN 30 ML BTL ONE (12:46)
[2018-09-25] MEDS ORDERED: ATROPINE SULFATE 0.1 MG/ML 10ML SYR IV PRN (13:37)
[2018-09-25] MEDS ORDERED: KETOROLAC 30 MG/ML VIAL IV PRN (13:37)
[2018-09-25] MEDS ORDERED: ONDANSETRON INJ 2 MG/ML 2 ML VIAL IV PRN ×2 (13:37→18:33)
[2018-09-25] MEDS ORDERED: ePHEDrine sulfate 50 MG/ML AMP IV PRN (13:37)
[2018-09-25] MEDS ORDERED: PHENYLEPHRINE 100MCG/ML 5ML SYR IV PRN (13:37)
[2018-09-25] MEDS ORDERED: HYDROmorphone INJ 1 MG/ML SYRINGE IV PRN (13:37)
--- NOTE | 2018-09-25 13:58 | History & Physical Bridge Note ---
Date of Service September 25, 2018 History & Physical Bridge Note I have examined the patient, reviewed the History & Physical and in the interval since the performance of the History & Physical I have noted the following changes of clinical significance: no changes noted
[2018-09-25] MEDS ORDERED: ePHEDrine sulfate 50 MG/ML SYR ONE (14:36)
[2018-09-25] MEDS ORDERED: ONDANSETRON INJ 2 MG/ML 2 ML VIAL ONE (15:00)
--- NOTE | 2018-09-25 15:31 | Operative Report ---
Post Operative Report Pre & Post Diagnosis Operation Date: 09/25/18 13:00 Pre-Op Diagnosis: Left Knee Degenerative Joint Disease Post-Op Diagnosis: Left Knee Degenerative Joint Disease Procedure Operation Date: 09/25/18 13:00 Actual Procedures p Left Total Knee Replacement(Left) - Reginald Dempsey DO Surgeon Reginald Dempsey DO Virtualization Consultant Reginald Hernandez PAC Estimated Blood Loss 10 Findings Consistent with Post-Op Diagnosis Specimens Left femoral and tibial bone Complications none Disposition Disposition: Recovery Room Indications 73-year-old female who presented my office with chronic increasing left knee pain. X-rays and clinical examination were diagnostic for primary osteoarthritis of the left knee. After failing extensive conservative treatment , she elected to proceed with a left total knee arthroplasty. Description of Procedure Implants used: I used a [employer] Vanguard total knee arthroplasty system with a size 62.5 femur, 63 tibia, 31 patella, and a size 10 PS polyethylene bearing. All components were cemented in place with Palacos G cement. The patient arrived [facility] for the above procedure. There were seen in the preoperative holding area and the operative extremity was identified and signed. There were given a preoperative antibiotic, a spinal anesthetic and an adductor nerve block. There were taken back to the operating room and laid on the table in supine position. There were given basic sedation. The operative knee was then prepped and draped in sterile fashion. A timeout was done, and the patient and the operative extremity was properly identified. A midline incision was made directly over the patella. Dissection was taken down to the extensor mechanism. A subvastus arthrotomy was used. The medial retinaculum was released and the fat pad was mostly left intact. The knee was flexed and the ACL, PCL, and meniscus were removed. A drill was sent down the center of the femoral canal followed by an intramedullary jose. Off that jose a distal femoral cutting block was placed. 9 mm was resected off the distal femur at 5 of valgus. A posterior referencing AP sizing guide was then placed on the distal femur. The femur measured to be a size 62.5. 2 drill holes were placed in 3 of external rotation. A 4-in-1 cutting block was then impacted into place. Anterior posterior and chamfer cuts were then made. The posterior stabilizing box guide was then impacted into place and the box was resected for the posterior stabilizing component. The proximal tibia was then exposed. A drill was sent down the center of the tibial canal followed by an intramedullary jose. Off that jose a proximal tibial resection guide was placed. The proximal tibia was then resected. The tibia measured to be a size 63. The tibial plate was then placed in the appropriate rotation and the tibia was punched. The posterior aspect of the knee was then opened up and any additional meniscus fragments and osteophytes were removed. Trial components were then placed. I used a size 10 PS polyethylene insert. The knee was brought through a full range of motion and felt to be stable. The patella was then everted and 8 mm was resected off the posterior aspect of the patella. The patella measured to be a size 31. 3 peg holes were then drilled. A trial patella was placed. The knee was once again brought through a full range of motion and felt to be stable. Trial components were then removed. The surrounding soft tissues were injected with 100 cc of an orthopedic pain control cocktail. All components were then cemented into place with Palacos G cement. The final polyethylene insert was then snapped into place and the anterior bar was locked. Once cement was dry the tourniquet was deflated. Hemostasis was obtained. A dilute betadyne lavage was then done for 3 minutes. The joint was then irrigated with normal saline solution. The subvastus arthrotomy was then closed with #1 Vicryl suture. The skin was closed with 2-0 Vicryl, 3-0V lock suture, and heather. A soft compressive dressing was placed. The patient was then transferred to a hospital bed and taken to the postanesthesia care unit in stable condition. They tolerated the procedure well. I attest to the content of the Intraoperative Record and any orders documented therein. Any exceptions are noted below.
--- NOTE | 2018-09-25 16:16 | XRay Report ---
XR knee LT 2V routine HISTORY: 73 years-old Female Surgical Post Op left knee total joint arthroplasty. History of degener ative joint disease COMPARISON: Left knee radiographs 08/24/2018 TECHNIQUE: 2 views of the left knee FINDINGS: Left knee total joint arthroplasty and patella resurfacing demonstrates satisfactory alignment withou t acute fracture. Bones appear mildly demineralized. Anterior midline skin heather are noted along wi th expected postsurgical soft tissue swelling and deep tissue air with surgical drainage catheter. IMPRESSION: Left knee total joint arthroplasty and patella resurfacing demonstrates satisfactory alig nment. The above report was generated using voice recognition software. It may contain grammatical, syntax o r spelling errors. Electronically signed by: Onofre Chavez M.D. 09/25/2018 4:15 PM
--- NOTE | 2018-09-25 18:11 | Anesthesiology Progress Note ---
Date of Service September 25, 2018 Anesthesia Post Procedure Vital Signs Vital Signs: Temp Pulse Pulse Resp BP Pulse Ox 09/25/18 18:05 36.9 C 75 16 131/58 L 98 09/25/18 17:55 64 13 115/67 99 09/25/18 17:45 61 13 131/57 L 99 09/25/18 17:35 61 16 128/69 100 09/25/18 17:25 85 16 127/74 100 09/25/18 17:15 67 14 123/64 99 09/25/18 17:05 68 14 129/77 99 09/25/18 16:55 62 13 121/60 100 09/25/18 16:45 70 14 123/72 100 09/25/18 16:35 66 16 123/60 100 09/25/18 16:25 93 H 15 125/93 97 09/25/18 16:15 64 12 119/57 L 100 09/25/18 16:05 61 12 153/89 H 100 09/25/18 15:57 36.7 C 66 16 126/57 L 97 09/25/18 11:03 36.9 C 68 18 152/72 H 98 Notes Mental Status: alert / awake / arousable Patient Amnestic to Procedure: Yes Nausea / Vomiting: adequately controlled Pain: adequately controlled Airway Patency, RR, SpO2: stable & adequate BP & HR: stable & adequate Hydration State: stable & adequate Neuraxial Anesthesia: was administered and sensory block is resolving Anesthetic Complications: no major complications apparent and Pt Satisfied with anesthetic care
[2018-09-25] MEDS ORDERED: NALOXONE HCL 0.4 MG/1 ML VIAL/CARP IV PRN (18:33)
[2018-09-25] MEDS ORDERED: FUROSEMIDE 20 MG TAB PO PRN (18:33)
[2018-09-25] MEDS ORDERED: IPRATROPIUM BROMIDE/ALBUTEROL respimat INH INH PRN (18:33)
[2018-09-25] MEDS ORDERED: HYDROmorphone INJ 0.5 MG/0.5 ML SYR IV PRN (18:33)
[2018-09-25] MEDS ORDERED: BISACODYL 10 MG SUPP PR PRN (18:33)
[2018-09-25] MEDS ORDERED: MAGNESIUM HYDROXIDE SUSP 30 ML UDC PO PRN (18:33)
[2018-09-25] MEDS ORDERED: NON-FORMULARY MEDICATION (Melatonin [Melatonin] 5 MG) PO PRN (18:33)
[2018-09-25] MEDS ORDERED: METOCLOPRAMIDE HCL INJ 5 MG/ML 2 ML VIAL IV PRN (18:33)
[2018-09-25] MEDS ORDERED: ALBUT/IPRATROP 3MG/0.5MG NEB 3 ML VIAL INH PRN (18:33)
[2018-09-25] MEDS ORDERED: ERGOCALCIFEROL 50,000 UNITS CAP PO SCH (18:33)
[2018-09-25] MEDS: KETOROLAC TROMETHAMINE 15 MG/ML VIAL IV SCH (20:02)
[2018-09-25] MEDS: DOCUSATE SODIUM 100 MG CAP PO SCH (21:28)
[2018-09-25] MEDS: SENNA 8.6 MG TAB PO SCH (21:29)
[2018-09-25] MEDS: ACETAMINOPHEN 500 MG TAB PO SCH (21:35)
[2018-09-25] MEDS: TOLTERODINE TARTRATE 1 MG TAB PO SCH (21:35)
[2018-09-25] MEDS: FERROUS SULFATE 325 MG TAB PO SCH (21:35)
[2018-09-25] MEDS: VENLAFAXINE HCL XR 75 MG CAPXR PO SCH (21:35)
[2018-09-25] MEDS: ASPIRIN 81 MG ECTAB PO SCH (21:35)
[2018-09-25] MEDS: NORTRIPTYLINE HCL 25 MG CAP PO SCH (21:35)
[2018-09-25] MEDS: clonazePAM 1 MG TAB PO SCH (21:35)
[2018-09-25] MEDS: ATENOLOL 25 MG TABLET PO SCH (21:35)
[2018-09-25] MEDS: ROPINIROLE HCL 1 MG TABLET PO SCH (21:36)
[2018-09-25] MEDS: CEFAZOLIN 2000MG 2,000 MG/15 ML SYR IV SCH (21:48)
[2018-09-26] MEDS: KETOROLAC TROMETHAMINE 15 MG/ML VIAL IV SCH ×4 (00:27→18:28)
[2018-09-26] MEDS: SODIUM CHLORIDE 0.9% 1000ML 1,000 ML IV SCH ×2 (00:28→05:58)
[2018-09-26] MEDS: CEFAZOLIN 2000MG 2,000 MG/15 ML SYR IV SCH (05:49)
[2018-09-26] MEDS: ACETAMINOPHEN 500 MG TAB PO SCH ×3 (05:50→21:52)
[2018-09-26 06:27] LABS: Hematocrit (blood only) 28.2 % (37-47); Hemoglobin 8.8 g/dL (12.0-16.0); Mean Corpuscular Hgb Conc 31.2 g/dL (32-36); Mean Corpuscular Volume 86.2 fL (80-100); Mean Platelet Volume 10.6 fL (7.4-10.4); Platelet Count 183 K/uL (130-400); RDW Coefficient of Variation 14.6 % (11.5-14.5); RDW Standard Deviation 46.1 fL (36.4-46.3); Red Blood Count 3.27 M/uL (4.2-5.4); White Blood Count 10.01 K/uL (4.8-10.8)
[2018-09-26 07:08] LABS: Calcium 7.8 mg/dl (8.5-10.1); Creatinine Clr Calc Pharmacy 45.5 ml/min; Est GFR (African American) 72.5; Est GFR (Non-African American) 62.5; Potassium 4.3 mmol/L (3.5-5.1)
[2018-09-26] MEDS: OXYCODONE HCL IR 5 MG TAB (IMMEDIATE RELEASE) PO PRN ×2 (07:47→12:36)
--- NOTE | 2018-09-26 08:58 | Orthopedic Progress Note ---
Date of Service September 26, 2018 Assessment & Plan (1) Osteoarthritis of left knee: Overall she is doing fairly well. She is not having too much pain in the knee but she still does not feel quite steady on her feet. She will be seen by physical therapy today. She will continue aspirin for DVT prophylaxis. We will likely discharge her to home tomorrow morning. Present on Admission?: Yes Subjective Lurdes was seen and examined at bedside this morning. Overall she is doing fairly well. She is having pain and soreness in the knee but is not too bad. She does not quite feel steady on her feet. She was up ambulating a little bit to the bathroom. She has no new complaints. Physical Exam 2 Vital Signs (Past 24 Hours): Last Vital Signs Temp 36.4 C L 09/26/18 04:35 Pulse 57 L 09/26/18 04:35 Resp 15 09/26/18 04:35 BP 124/73 09/26/18 04:35 Pulse Ox 99 09/26/18 04:35 Musculoskeletal: On physical examination of the left knee, the dressing is clean and dry. She is active dorsiflexion and plantarflexion of her left ankle. Sensation is intact. Results & Data Laboratory Results H & H 09/02/18 09/26/18 Range/Units 14:11 06:16 Hgb 10.1 L 8.8 L (12.0-16.0) g/dL Hct 32.4 L 28.2 L (37-47) % Coagulation 09/02/18 Range/Units 14:11 INR 1.0 (0.9-1.1) Diagnostic Findings X-rays postoperatively of the left knee show the prosthesis to be in anatomic alignment without any evidence of fracture, dislocation, or loosening.
[2018-09-26] MEDS: TOLTERODINE TARTRATE 1 MG TAB PO SCH ×2 (08:59→21:52)
[2018-09-26] MEDS: DOCUSATE SODIUM 100 MG CAP PO SCH ×2 (08:59→21:48)
[2018-09-26] MEDS: ASPIRIN 81 MG ECTAB PO SCH ×2 (09:00→21:52)
[2018-09-26] MEDS: FERROUS SULFATE 325 MG TAB PO SCH ×2 (09:00→21:52)
[2018-09-26] MEDS: MULTIVITAMIN TAB PO SCH (09:00)
[2018-09-26] MEDS: FLUTICASONE PROPIONATE NA SPR 16 GM BTL SCH (09:01)
[2018-09-26] MEDS: SENNA 8.6 MG TAB PO SCH (21:48)
[2018-09-26] MEDS: ROPINIROLE HCL 1 MG TABLET PO SCH (21:52)
[2018-09-26] MEDS: clonazePAM 1 MG TAB PO SCH (21:52)
[2018-09-26] MEDS: NORTRIPTYLINE HCL 25 MG CAP PO SCH (21:52)
[2018-09-26] MEDS: VENLAFAXINE HCL XR 75 MG CAPXR PO SCH (21:52)
[2018-09-26] MEDS: ATENOLOL 25 MG TABLET PO SCH (21:52)
[2018-09-27] MEDS: KETOROLAC TROMETHAMINE 15 MG/ML VIAL IV SCH ×2 (00:03→05:57)
[2018-09-27] MEDS: ACETAMINOPHEN 500 MG TAB PO SCH ×2 (05:57→06:01)
--- NOTE | 2018-09-27 07:19 | Orthopedic Progress Note ---
Date of Service September 27, 2018 Assessment & Plan (1) Osteoarthritis of left knee: Overall she is doing fairly well. She has some soreness in her knee but that is to be expected. She ambulated well with physical therapy. She was a little bit nauseous last night but she is feeling better today. She is on aspirin for DVT prophylaxis. She can be discharged home later today. Present on Admission?: Yes Subjective Lurdes was seen and examined at bedside this morning. Overall she is doing fairly well. She is having some soreness in her knee but is not too bad. She ambulated well with physical therapy. She has no complaints. Physical Exam 2 Vital Signs (Past 24 Hours): Last Vital Signs Temp 36.7 C 09/27/18 06:03 Pulse 60 09/27/18 06:03 Resp 16 09/27/18 06:03 BP 176/81 H 09/27/18 06:03 Pulse Ox 97 09/27/18 06:03 Musculoskeletal: On physical examination of the left knee, the dressing has been changed and the incision is clean and dry. Her legs out in full extension. She has active dorsiflexion and plantarflexion of her left ankle.
--- NOTE | 2018-09-27 07:20 | Discharge Summary ---
Date of Service September 27, 2018 Admission HPI Per Admitting Provider Lurdes is a pleasant 72-year-old female who presented my office with chronic increasing left knee pain. X-rays and clinical examination have been diagnostic for primary osteoarthritis of the left knee. After failing extensive conservative treatment, she is elected to proceed with a left total knee arthroplasty. Specialty Data Orthopedic H & H 09/02/18 09/26/18 Range/Units 14:11 06:16 Hgb 10.1 L 8.8 L (12.0-16.0) g/dL Hct 32.4 L 28.2 L (37-47) % Coagulation 09/02/18 Range/Units 14:11 INR 1.0 (0.9-1.1) Discharge Data Consultations 09/25/18 18:33 Consult Case Management - Discharge Planning Routine Procedures Performed Operation Date: 09/25/18 13:00 Actual Procedures p Left Total Knee Replacement(Left) - Reginald Dempsey DO Hospital Course (1) Osteoarthritis of left knee: On September 25, [address] [facility] and underwent a left total knee arthroplasty without complication. She had a spinal anesthetic and a left adductor nerve block. Postoperatively she was started on aspirin for DVT prophylaxis and discharged to general orthopedic floors. Her hospital course was uneventful. On postop day #1 her H&H was stable and her pain was well controlled. She was able to ambulate well with physical therapy. She did not quite feel safe going home. On postop day #2 she was doing better. She was having some pain in the knee but it was controlled with the oral oxycodone. She felt safe going home. She was therefore discharged home with physical therapy. She will follow-up with orthopedics in 2 weeks. Discharge Instructions Home Medications Medication Instructions Recorded Confirmed HOME O2 THERAPY (Oxygen) 2.5 liters NA HS #0 btl 09/03/17 09/25/18 atenolol 25 mg PO HS 08/26/18 09/25/18 clonazepam 1 mg PO HS 08/26/18 09/25/18 cyanocobalamin (vitamin B-12) 1 dose IM MONTHLY 08/26/18 09/25/18 ergocalciferol (vitamin D2) 50,000 unit PO UD 08/26/18 09/25/18 ferrous sulfate 325 mg PO BID 08/26/18 09/25/18 furosemide 20 mg PO DAILY PRN 08/26/18 09/25/18 ipratropium-albuterol 3 ml INHALATION QID PRN 08/26/18 08/26/18 ipratropium-albuterol [Combivent 1 puff INHALATION Q6H PRN 08/26/18 09/25/18 Respimat] ketorolac 10 mg PO Q8H PRN 08/26/18 09/25/18 melatonin 5 mg PO HS PRN 08/26/18 09/25/18 mometasone 2 spray INTRANASAL DAILY 08/26/18 09/25/18 nortriptyline 50 mg PO HS 08/26/18 09/25/18 ranitidine HCl 150 mg PO Q2D 08/26/18 09/25/18 ropinirole 2 mg PO HS 08/26/18 09/25/18 tolterodine [Detrol] 1 mg PO BID 08/26/18 09/25/18 tramadol 50 mg PO Q6H PRN 08/26/18 09/25/18 venlafaxine 75 mg PO HS 08/26/18 09/25/18 loperamide [Imodium A-D] 2 mg PO Q3H PRN 09/02/18 09/25/18 Previous Rx's Medication Instructions Recorded aspirin 81 mg PO BID #84 tab 09/27/18 oxycodone-acetaminophen 1 tab PO Q6H PRN #40 tab 09/27/18
[2018-09-27] MEDS: MULTIVITAMIN TAB PO SCH (07:48)
[2018-09-27] MEDS: TOLTERODINE TARTRATE 1 MG TAB PO SCH (07:48)
[2018-09-27] MEDS: FERROUS SULFATE 325 MG TAB PO SCH (07:49)
[2018-09-27] MEDS: DOCUSATE SODIUM 100 MG CAP PO SCH ×2 (07:49→07:51)
[2018-09-27] MEDS: ASPIRIN 81 MG ECTAB PO SCH (07:49)
[2018-09-27] MEDS: FLUTICASONE PROPIONATE NA SPR 16 GM BTL SCH (07:49)
[2018-09-27] MEDS: OXYCODONE HCL IR 5 MG TAB (IMMEDIATE RELEASE) PO PRN (11:11)
== END 2018-09-27 11:42 | disposition home health service (06) | DRG 470 ==
LOC: ASU 10:31 → 3E 15:35

== ENCOUNTER 2019-08-03 06:07 | Inpatient (IN) ==
--- NOTE | 2019-06-30 13:24 | PAT Medication Instructions ---
Medication Instructions Date of Service June 30, 2019 Home Medications Medication Instructions Recorded aspirin 81 mg PO BID #84 tab 09/27/18 ipratropium 20 mcg-albuterol 100 1 puff INHALATION Q6H PRN #4 gm 05/15/19 mcg/actuation mist for inhalation ipratropium-albuterol 0.5 mg-3 3 ml INHALATION QID PRN #15 ml 05/15/19 mg(2.5 mg base)/3 mL nebulization soln ranitidine HCl 150 mg capsule 150 mg PO Q2D #30 cap 05/15/19 ropinirole 2 mg tablet 2 mg PO HS #90 tab 05/15/19 colesevelam 625 mg tablet 625 mg PO BID #60 tab 05/26/19 clonazepam 1 mg tablet 1 mg PO HS #30 tab 06/14/19 ferrous sulfate 325 mg (65 mg 325 mg PO BID #60 tab 06/14/19 iron) tablet oxycodone 10 mg tablet 10 mg PO Q6H PRN #60 tab 06/14/19 furosemide 20 mg tablet 20 mg PO DAILY PRN #30 tab 06/30/19 atenolol 25 mg PO HS ergocalciferol (vitamin D2) 50,000 unit PO UD melatonin 5 mg PO HS PRN mometasone 2 spray INTRANASAL DAILY nortriptyline 50 mg PO HS tolterodine [Detrol] 1 mg PO BID loperamide [Imodium A-D] 2 mg PO Q3H PRN aspirin 81 mg PO BID nitroglycerin 0.4 mg sublingual tablet 0.4 mg SL UD PRN ipratropium 20 mcg-albuterol 100 mcg/actuation mist for inhalation 1 puff INHALATION Q6H PRN ipratropium-albuterol 0.5 mg-3 mg(2.5 mg base)/3 mL nebulization soln 3 ml INHALATION QID PRN ranitidine HCl 150 mg capsule 150 mg PO Q2D ropinirole 2 mg tablet 2 mg PO HS acetaminophen 500 mg tablet 500 mg PO UD PRN colesevelam 625 mg tablet 625 mg PO BID clonazepam 1 mg tablet 1 mg PO HS ferrous sulfate 325 mg (65 mg iron) tablet 325 mg PO BID oxycodone 10 mg tablet 10 mg PO Q6H PRN venlafaxine 75 mg PO QAM furosemide 20 mg tablet 20 mg PO DAILY PRN Continue as directed nitroglycerin 0.4 mg sublingual tablet 0.4 mg SL UD PRN (if needed) ASK your prescriber and surgeon aspirin 81 mg PO BID STOP taking 48 hours before surgery colesevelam 625 mg tablet 625 mg PO BID STOP taking 24 hours before surgery ropinirole 2 mg tablet 2 mg PO HS DO NOT take the morning of surgery ergocalciferol (vitamin D2) 50,000 unit PO UD tolterodine [Detrol] 1 mg PO BID loperamide [Imodium A-D] 2 mg PO Q3H PRN ranitidine HCl 150 mg capsule 150 mg PO Q2D ferrous sulfate 325 mg (65 mg iron) tablet 325 mg PO BID furosemide 20 mg tablet 20 mg PO DAILY PRN Take morning of surgery With a small sip of water, OTHERWISE NOTHING TO EAT OR DRINK AFTER MIDNIGHT: ipratropium 20 mcg-albuterol 100 mcg/actuation mist for inhalation 1 puff INHALATION Q6H PRN (if needed) ipratropium-albuterol 0.5 mg-3 mg(2.5 mg base)/3 mL nebulization soln 3 ml INHALATION QID PRN (if needed) acetaminophen 500 mg tablet 500 mg PO UD PRN (okay to take up to 4 hours prior to surgery if needed) oxycodone 10 mg tablet 10 mg PO Q6H PRN (okay to take up to 4 hours prior to surgery if needed) venlafaxine 75 mg PO QAM Take evening before surgery atenolol 25 mg PO HS melatonin 5 mg PO HS PRN (if needed) nortriptyline 50 mg PO HS tolterodine [Detrol] 1 mg PO BID loperamide [Imodium A-D] 2 mg PO Q3H PRN (if needed) ipratropium 20 mcg-albuterol 100 mcg/actuation mist for inhalation 1 puff INHALATION Q6H PRN (if needed) ipratropium-albuterol 0.5 mg-3 mg(2.5 mg base)/3 mL nebulization soln 3 ml INHALATION QID PRN (if needed) acetaminophen 500 mg tablet 500 mg PO UD PRN (if needed) clonazepam 1 mg tablet 1 mg PO HS ferrous sulfate 325 mg (65 mg iron) tablet 325 mg PO BID oxycodone 10 mg tablet 10 mg PO Q6H PRN (if needed) furosemide 20 mg tablet 20 mg PO DAILY PRN (if needed) Other Notes If you have any questions please call us at [phone] or [phone] or [phone] or [phone]
--- NOTE | 2019-07-06 13:08 | Anesthesiology Consultation ---
Date of Service July 06, 2019 Assessment & Plan (1) Encounter for pre-operative examination: S/P R shoulder scope 01/15/18 @ [facility] = MAC 3, ETT 7.5, GV I. Atraumatic LMA x 1 -->unable to seat-->atraumatic ETT. Chart Review Chart Review: Acceptable Risk for Surgery and Patient seen in Pre Admission Testing Teaching & Discussion Instructed NPO after midnight before surgery, except medications with 15 cc of water. Medication instructions provided according to the PAT guidelines. History Surgery Operation Date: 08/03/19 10:00 Proposed Procedures p Left Reverse Total Shoulder Arthroplasty - Reginald Dempsey, Height/Weight Height: 4 ft 11 in Weight: 74.7 kg Allergies Allergy/AdvReac Type Severity Reaction Status Date / Time No Known Drug Allergies Allergy Unknown . Verified 06/25/19 13:19 Medications Home Medications Medication Instructions Recorded Confirmed Last Taken atenolol 25 mg PO HS 08/26/18 06/25/19 09/23/18 22:00 ergocalciferol (vitamin D2) 50,000 unit PO UD 08/26/18 06/25/19 08/26/18 melatonin 5 mg PO HS PRN 08/26/18 06/25/19 Unknown mometasone 2 spray INTRANASAL DAILY 08/26/18 06/25/19 09/24/18 nortriptyline 50 mg PO HS 08/26/18 06/25/19 09/23/18 22:00 tolterodine [Detrol] 1 mg PO BID 08/26/18 06/25/19 09/23/18 loperamide [Imodium A-D] 2 mg PO Q3H PRN 09/02/18 06/25/19 09/24/18 10:00 aspirin 81 mg PO BID #84 tab 09/27/18 06/25/19 Unknown nitroglycerin 0.4 mg sublingual 0.4 mg SL UD PRN tab 01/06/19 06/25/19 Unknown tablet ipratropium 20 mcg-albuterol 100 1 puff INHALATION Q6H PRN #4 gm 05/15/19 06/25/19 Unknown mcg/actuation mist for inhalation ipratropium-albuterol 0.5 mg-3 3 ml INHALATION QID PRN #15 ml 05/15/19 06/25/19 Unknown mg(2.5 mg base)/3 mL nebulization soln ranitidine HCl 150 mg capsule 150 mg PO Q2D #30 cap 05/15/19 06/25/19 Unknown ropinirole 2 mg tablet 2 mg PO HS #90 tab 05/15/19 06/25/19 Unknown acetaminophen 500 mg tablet 500 mg PO UD PRN tab 05/20/19 06/25/19 Unknown colesevelam 625 mg tablet 625 mg PO BID #60 tab 05/26/19 06/25/19 Unknown ferrous sulfate 325 mg (65 mg 325 mg PO BID #60 tab 06/14/19 06/25/19 Unknown iron) tablet oxycodone 10 mg tablet 10 mg PO Q6H PRN #60 tab 06/14/19 06/25/19 Unknown venlafaxine 75 mg PO QAM 06/25/19 06/25/19 Unknown clonazepam 1 mg tablet 1 mg PO HS #30 tab 06/30/19 Unknown furosemide 20 mg tablet 20 mg PO DAILY PRN #30 tab 06/30/19 Unknown Past Medical History Medical History Asthma patient denies Carpal tunnel syndrome of left wrist (Acute) Cervical cord compression with myelopathy COPD (chronic obstructive pulmonary disease) Depression (Acute) Diarrhea chronic since gastric bypass Dyslipidemia GERD (gastroesophageal reflux disease) HTN (hypertension) Insomnia (Acute) Iron deficiency anemia (Acute) Lumbar spinal stenosis (Acute) Nocturnal hypoxemia (Acute) 2 LPM O2 QHS Osteoarthritis Osteopenia (Acute) Restless leg syndrome Sleep apnea no device, pt states she was retested after weight loss and no longer needs treatment. Wears O2 at night (2L) for nocturnal hypoxemia. Thoracic outlet syndrome (Acute) Urge incontinence Vertigo (Acute) Exercise / Class Metabolic Activity II 4-5 Yardwork/Stairs/Walk up hill (Denies CP or SOB with 1FOS) Past Family History Family History Mother Father Past Surgical History Surgical History H/O cervical discectomy she thinks History of cholecystectomy History of colonoscopy History of discectomy LUMBAR, 1979 History of fusion of cervical spine History of gastric bypass 2010 History of repair of rotator cuff Right History of total left knee replacement 09/25/2018 [facility] History of tubal ligation Hx of breast reduction, elective Status post panniculectomy Past Anesthesia History No Hx of Anesthesia Complications and No Family Hx of Anesthesia Complications History of PONV No Hx of PONV and No Hx of Motion Sickness Social History Smoking Status: Former smoker tobacco type: cigarettes Smoking cigarettes per day: QUIT >10 YEARS AGO. Smoked 5 ppd x 50 years Do You Dip or Chew Tobacco: No Hx Alcohol Use: No Hx Substance Use: No substance use type: does not use Review of Systems Pt denies any recent chest pain, shortness of breath, palpitations, cough, fever or URI. Physical Exam Vital Signs BP: 166/78 (pt states this is high for her, she has been "rushing around" today; follows with PCP for HTN) P: 79bpm SPO2: 95% RA T: 98.1 F R: 18 ENMT Mouth: + dentures and + edentulous Thyromental Distance: > or= 3.5 Finger Breadths (4) Mallampati Class: II Neck + short neck; neck extension not limited Respiratory normal respiratory effort Auscultation: lungs clear to auscultation bilaterally Cardiovascular Rate/Rhythm: regular rate and regular rhythm Heart Sounds: no murmur Vessels: no carotid bruit Extremities: no edema Skin Large soft tissue mass L scapular area (PCP monitoring) Testing Laboratory Results 07/06/19 13:17 07/06/19 13:17 PT 10.7 Seconds (9.0-12.0) 07/06/19 13:17 INR 1.0 (0.9-1.1) 07/06/19 13:17 APTT 24.5 Seconds (21.0-31.0) 07/06/19 13:17 Blood Type A Positive 07/06/19 13:17 Antibody Screen NEGATIVE 07/06/19 13:17 Electrocardiogram Date: 05/24/19 Findings: + SB @ (58bpm) Chest X-Ray Date: 09/02/18 Findings: + NAD
[2019-07-06 14:22] LABS: Basophils # (auto) 0.03 K/uL (0-0.2); Basophils % (auto) 0.6 %; Eosinophils # (auto) 0.07 K/uL (0-0.5); Eosinophils % (auto) 1.4 %; Hematocrit (blood only) 35.5 % (37-47); Hemoglobin 11.4 g/dL (12.0-16.0); Lymphocytes # (auto) 1.92 K/uL (1.2-3.4); Mean Corpuscular Hemoglobin 30.2 pg (25-34); Mean Corpuscular Hgb Conc 32.1 g/dL (32-36); Mean Corpuscular Volume 94.2 fL (80-100); Mean Platelet Volume 10.8 fL (7.4-10.4); Monocytes # (auto) 0.28 K/uL (0.11-0.59); Monocytes % (auto) 5.5 %; Neutrophils # (auto) 2.75 K/uL (1.4-6.5); Neutrophils % (auto) 54.5 %; Platelet Count 251 K/uL (130-400); RDW Standard Deviation 47.7 fL (36.4-46.3); Red Blood Count 3.77 M/uL (4.2-5.4); White Blood Count 5.05 K/uL (4.8-10.8)
[2019-07-06 14:34] LABS: Partial Thromboplastin Ratio 0.9; Partial Thromboplastin Time 24.5 Seconds (21.0-31.0); Prothrombin Time 10.7 Seconds (9.0-12.0)
[2019-07-06 15:13] LABS: Calcium 8.8 mg/dl (8.5-10.1); Creatinine Clr Calc Pharmacy 62.1 ml/min; Est GFR (African American) 98.7; Est GFR (Non-African American) 85.2; Potassium 3.6 mmol/L (3.5-5.1)
--- NOTE | 2019-07-29 09:57 | History & Physical Report ---
Date of Service July 29, 2019 Assessment & Plan (1) Rotator cuff arthropathy of left shoulder: We will proceed with a left reverse shoulder arthroplasty. Postoperatively she will be placed in a sling and kept overnight in the hospital for postoperative medical management. She plans to use outpatient physical therapy upon discharge. Present on Admission?: Yes History of Present Illness Chief Complaint: Rotator cuff arthropathy of the left shoulder Primary Care Provider: Mimi De La Vega MD Lurdes is a pleasant 73-year-old female who I did a right rotator cuff repair on a year ago. She is done well with that. Unfortunately she is having a lot of left shoulder pain. Her left shoulder hurts her worse than her right shoulder ever did. She is a lot of weakness with her left shoulder. This been going on for years but has gotten worse recently. MRI and clinical examination were diagnostic for an anterior superior rotator cuff tear with chronic retraction of the entire subscapularis. After failing conservative treatment, she has elected proceed with a reverse left shoulder arthroplasty. Allergies Allergy/AdvReac Type Severity Reaction Status Date / Time No Known Drug Allergies Allergy Unknown . Verified 06/25/19 13:19 Home Medications Home Medications Medication Instructions Recorded Confirmed Type atenolol 25 mg PO HS 08/26/18 06/25/19 History ergocalciferol (vitamin D2) 50,000 unit PO UD 08/26/18 06/25/19 History melatonin 5 mg PO HS PRN 08/26/18 06/25/19 History mometasone 2 spray INTRANASAL DAILY 08/26/18 06/25/19 History nortriptyline 50 mg PO HS 08/26/18 06/25/19 History tolterodine [Detrol] 1 mg PO BID 08/26/18 06/25/19 History loperamide [Imodium A-D] 2 mg PO Q3H PRN 09/02/18 06/25/19 History aspirin 81 mg PO BID #84 tab 09/27/18 06/25/19 Rx nitroglycerin 0.4 mg sublingual 0.4 mg SL UD PRN tab 01/06/19 06/25/19 History tablet ipratropium 20 mcg-albuterol 100 1 puff INHALATION Q6H PRN #4 gm 05/15/19 Rx mcg/actuation mist for inhalation ipratropium-albuterol 0.5 mg-3 3 ml INHALATION QID PRN #15 ml 05/15/19 06/25/19 Rx mg(2.5 mg base)/3 mL nebulization soln ranitidine HCl 150 mg capsule 150 mg PO Q2D #30 cap 05/15/19 06/25/19 Rx ropinirole 2 mg tablet 2 mg PO HS #90 tab 05/15/19 06/25/19 Rx acetaminophen 500 mg tablet 500 mg PO UD PRN tab 05/20/19 06/25/19 History colesevelam 625 mg tablet 625 mg PO BID #60 tab 05/26/19 06/25/19 Rx ferrous sulfate 325 mg (65 mg 325 mg PO BID #60 tab 06/14/19 06/25/19 Rx iron) tablet venlafaxine 75 mg PO QAM 06/25/19 06/25/19 History clonazepam 1 mg tablet 1 mg PO HS #30 tab 06/30/19 Rx furosemide 20 mg tablet 20 mg PO DAILY PRN #30 tab 06/30/19 Rx oxycodone 10 mg tablet 10 mg PO Q6H PRN #60 tab 07/13/19 Rx Past Med/Surg History Medical History Asthma patient denies Carpal tunnel syndrome of left wrist (Acute) Cervical cord compression with myelopathy COPD (chronic obstructive pulmonary disease) Depression (Acute) Diarrhea chronic since gastric bypass Dyslipidemia GERD (gastroesophageal reflux disease) HTN (hypertension) Insomnia (Acute) Iron deficiency anemia (Acute) Lumbar spinal stenosis (Acute) Nocturnal hypoxemia (Acute) 2 LPM O2 QHS Osteoarthritis Osteopenia (Acute) Restless leg syndrome Sleep apnea no device, pt states she was retested after weight loss and no longer needs treatment. Wears O2 at night (2L) for nocturnal hypoxemia. Thoracic outlet syndrome (Acute) Urge incontinence Vertigo (Acute) Surgical History H/O cervical discectomy she thinks History of cholecystectomy History of colonoscopy History of discectomy LUMBAR, 1979 History of fusion of cervical spine History of gastric bypass 2010 History of repair of rotator cuff Right History of total left knee replacement 09/25/2018 [facility] History of tubal ligation Hx of breast reduction, elective Status post panniculectomy Family History Mother Father Social History Preferred Language: Kiswahili Communication Ability: Effective Visual Impairment: No Limitations Hearing Ability: Normal Public Information Director Required: No Beliefs That Will Affect Care: None marital status: marital status details: Three children Current Living Situation: Alone Current Living Situation Comment: lives with daughter current occupational status: retired Feels Safe at Home: Yes Smoking Status: Former smoker Tobacco Type: cigarettes ; Cigarettes Per Day: QUIT >10 YEARS AGO. Smoked 5 ppd x 50 years ; Second Hand Exposure: No ; Hx Alcohol Use: No Hx Substance Use: No Dental Care, Regularly: Yes Physical Activity Frequency: Does not Exercise Physical Activity Frequency Comment: Limited by physical condition Seatbelt Use: always Review of Systems All systems reviewed & are unremarkable except as noted in HPI & below Physical Exam Constitutional: WD/WN, vitals as above Eyes: PERRL, conjunctivae normal, anicteric sclerae ENMT: external ear and nose normal, oropharynx normal Neck: trachea midline, no thyromegaly Respiratory: normal respiratory effort Cardiovascular: RRR, no murmur, no edema Gastrointestinal (Abdomen): normal bowel sounds, soft, nontender, no hepatosplenomegaly Musculoskeletal: Physical examination of the left shoulder reveals decreased range of motion and significant weakness. There is tenderness palpation along the anterior glenohumeral joint line. The right upper extremity is neurovascularly intact. Psychiatric: A+Ox3, euthymic affect Results & Data Diagnostic Findings MRI of the left shoulder shows a complete tear of the entire subscapularis and anterior half of the supraspinatus. The subscapularis was retracted past the glenoid and completely atrophied.
[~2019-08-03 06:07] MED LIST changes: -BUPIVACAINE 0.5 % 5 MG/1 ML PF 10ML VIAL ONE; +CEFAZOLIN 1000MG 1,000 MG/7.5 ML SYR IV SCH; -CEFAZOLIN 2000MG 2,000 MG/15 ML SYR IV SCH; +GABAPENTIN 300 MG CAP PO SCH; -GABAPENTIN 300 MG PO SCH; +LR 15ML/HR IV SCH; -LR 500ML BOLUS, THEN 15ML/HR IV SCH; -ROPIVACAINE 0.5% 5 MG/ML 30 ML VIAL ONE; -ROPIVACAINE 0.5% HCL/PF 150 MG, BUPIVACAINE 0.5% MPF 30 ML, EPINEPHrine 30MG/30ML (OR U... INFIL SCH; +ROPIVACAINE 0.5% HCL/PF 150 MG, BUPIVACAINE 0.5% MPF 30 ML, EPINEPHrine 30MG/30ML (OR U... INSTIL SCH; +dexAMETHasone 4 MG TAB PO SCH
[2019-08-03] MEDS ORDERED: PROPOFOL IV EMULSION 10 MG/ML 20 ML VIAL IV ONE (06:21)
[2019-08-03] MEDS ORDERED: ROCURONIUM BROMID 50MG/5ML SYR ONE (06:21)
[2019-08-03] MEDS ORDERED: MIDAZOLAM HCL 1 MG/ML 2ML VIAL ONE (06:21)
[2019-08-03] MEDS ORDERED: fentaNYL citrate 100 MCG/2 ML VIAL ONE ×3 (06:21→09:38)
--- NOTE | 2019-08-03 06:26 | History & Physical Bridge Note ---
Date of Service August 03, 2019 History & Physical Bridge Note I have examined the patient, reviewed the History & Physical and in the interval since the performance of the History & Physical I have noted the following changes of clinical significance: no changes noted
[2019-08-03] MEDS ORDERED: BUPIVACAINE 0.5 % 5 MG/1 ML PF 10ML VIAL ONE (06:36)
[2019-08-03] MEDS ORDERED: ROPIVACAINE 0.5% 5 MG/ML 30 ML VIAL ONE (07:23)
[2019-08-03] MEDS ORDERED: EPINEPHrine INJ 1 MG/ML AMP ONE (07:24)
[2019-08-03] MEDS ORDERED: ORTHO JOINT ANESTHETIC ONE (07:47)
[2019-08-03] MEDS ORDERED: ATROPINE SULFATE 0.1 MG/ML 10ML SYR IV PRN (08:00)
[2019-08-03] MEDS ORDERED: ePHEDrine sulfate 50 MG/ML AMP IV PRN (08:00)
[2019-08-03] MEDS ORDERED: ONDANSETRON INJ 2 MG/ML 2 ML VIAL IV PRN ×2 (08:00→11:48)
[2019-08-03] MEDS ORDERED: fentaNYL citrate 100 MCG/2 ML VIAL IV PRN (08:00)
[2019-08-03] MEDS ORDERED: ESMOLOL HCL INJ 10 MG/ML 10ML VIAL IV ONE (09:37)
[2019-08-03] MEDS ORDERED: GLYCOPYRROLATE 0.2 MG/ML VIAL ONE (09:38)
[2019-08-03] MEDS ORDERED: NEOSTIGMINE METHYLSULFATE 5 MG/5 ML SYR ONE (09:38)
[2019-08-03] MEDS ORDERED: ROCURONIUM BROMIDE 10 MG/ML 5 ML VIAL ONE (09:38)
[2019-08-03] MEDS ORDERED: ONDANSETRON INJ 2 MG/ML 2 ML VIAL ONE (09:38)
[2019-08-03] MEDS ORDERED: DEXAMETHASONE SOD INJ 4 MG/ML VIAL ONE (09:38)
--- NOTE | 2019-08-03 10:28 | Operative Report ---
PG Post Operative Report Pre & Post Diagnosis Operation Date: 08/03/19 08:40 Pre-Op Diagnosis: Left Shoulder rotator cuff arthropathy Post-Op Diagnosis: Left Shoulder rotator cuff arthropathy I identified the patient and participated in the time-out.: Yes Procedure Operation Date: 08/03/19 08:40 Actual Procedures p Left Reverse Total Shoulder Arthroplasty(Left) - Reginald Dempsey DO Surgeon Reginald Dempsey DO [employer] Reginald Hernandez PAC Estimated Blood Loss 150 Findings Consistent with Post-Op Diagnosis Specimens Left humeral head Complications none Disposition Disposition: Recovery Room Indications Lurdes is a pleasant 73-year-old female who sustained an injury to her left shoulder. MRI and clinical examination were diagnostic for massive rotator cuff tear with tear unrepairable subscapularis. After failing conservative treatment, she elected to proceed with a left reverse shoulder arthroplasty. Description of Procedure Implants used: I used a [employer] Comprehensive reverse total shoulder arthroplasty system with a size 10 press fit mini humeral stem, a standard humeral tray and a standard humeral bearing, a 25 mm mini baseplate with a 6.5 mm central screw and superior and inferior locking screws, and a size 36 mm eccentric glenosphere. The patient arrived at [facility] for the above procedure. There were seen in the preoperative holding area and the operative extremity was identified and signed. They were given a preoperative antibiotic and an interscalene nerve block. They were taken back to the operating room, laid on table in supine position, and put under general anesthesia. They were then put into the beachchair position. The shoulder was then prepped and draped in sterile fashion. A timeout was done and the patient and the operative extremity was properly identified. A deltopectoral approach was used. Dissection was taken down through the fascia and the deltoid was retracted laterally and the conjoined tendon was retracted medially. The anterior shoulder was exposed. The long head of the biceps tendon was tenodesed to the upper border of the pectoralis major. The subscapularis was then released off the lesser tuberosity with a centimeter of cuff tissue remaining. The inferior capsule was released and the humeral head was dislocated. A canal finding reamer was sent down the center of the humeral canal. Sequential reaming up to a size 10 reamer was done. Off that reamer, a proximal humeral resection guide was placed. The proximal humerus was resected at 135 of inclination and 25 of retroversion. Osteophytes were then removed and the glenoid was exposed. Time was spent doing a complete capsular and labral release. The glenoid guide was then placed in the inferior aspect of the glenoid. A 3.2 mm Steinmann pin was then placed into the glenoid vault at 10 of inclination. The glenoid baseplate was then reamed. The final size 25 mm mini baseplate was then impacted in the place. A 6.5 mm central screw was then placed followed by superior and inferior locking screws. A 36 mm eccentric glenoid sphere was then impacted into place. Surrounding soft tissues were then injected with 100 cc an orthopedic pain control cocktail. The proximal humerus was then exposed. Sequential broaching of the humerus up to a size 10 broach was done. Off that broach a standard humeral tray was trialed. The shoulder was then reduced, brought through a full range of motion and felt to be stable. The shoulder was then dislocated and the broach was removed. The final size 10 mini press-fit humeral stem was then impacted into place. A standard humeral bearing was then snapped onto a standard humeral tray and the ring-lock mechanism was engaged. The humeral tray was then impacted onto the humeral stem. The shoulder was once again reduced, brought through a full range of motion and felt to be stable. The subscapularis was unrepairable. A dilute betadyne lavage was then done for 3 minutes. The joint was then irrigated with normal saline solution. Hemostasis was obtained. The skin was then closed with 2-0 Vicryl, 3-0V lock suture, and heather. A soft dressing and a regular arm sling was placed. The patient was then extubated and transferred to a hospital bed. They were taken to the postanesthesia care unit in stable condition. They tolerated the procedure well. I attest to the content of the Intraoperative Record and any orders documented therein. Any exceptions are noted below.
--- NOTE | 2019-08-03 11:03 | XRay Report ---
XR shoulder LT min 2V routine CLINICAL HISTORY: Post shoulder surgery COMPARISON STUDY: None. FINDINGS: The patient is status post a reverse left total shoulder arthroplasty. The hardware appears intact. Skin heather are in place. No fracture or dislocation. IMPRESSION: Status post reverse left total shoulder arthroplasty. No evidence for hardware complicat ion. ACT 112: Negative or not required by law. Electronically signed by: Ye Ayala M.D. 08/03/2019 11:02 AM
--- NOTE | 2019-08-03 11:19 | Anesthesiology Progress Note ---
Date of Service August 03, 2019 Anesthesia Post Procedure Vital Signs Vital Signs: Temp Pulse Pulse Resp BP Pulse Ox 08/03/19 10:45 35.8 C L 87 14 158/80 H 98 08/03/19 06:45 36.9 C 83 22 169/94 H 97 Pain Intensity Lower Back: Pain Intensity: 5 Left Shoulder: Pain Intensity: 0 Transfer of Care Handoff Completed per policy Notes Mental Status: alert / awake / arousable and participated in evaluation Patient Amnestic to Procedure: Yes Nausea / Vomiting: adequately controlled Pain: adequately controlled Airway Patency, RR, SpO2: stable & adequate BP & HR: stable & adequate Hydration State: stable & adequate Anesthetic Complications: no major complications apparent and Pt Satisfied with anesthetic care
[2019-08-03] MEDS ORDERED: HYDROmorphone INJ 0.5 MG/0.5 ML SYR IV PRN (11:48)
[2019-08-03] MEDS ORDERED: ALBUT/IPRATROP 3MG/0.5MG NEB 3 ML VIAL INH PRN (11:48)
[2019-08-03] MEDS ORDERED: IPRATROPIUM BROMIDE/ALBUTEROL respimat INH INH PRN (11:48)
[2019-08-03] MEDS ORDERED: MAGNESIUM HYDROXIDE SUSP 30 ML UDC PO PRN (11:48)
[2019-08-03] MEDS ORDERED: bisacodyL 10 MG SUPP PR PRN (11:48)
[2019-08-03] MEDS ORDERED: METOCLOPRAMIDE HCL INJ 5 MG/ML 2 ML VIAL IV PRN (11:48)
[2019-08-03] MEDS ORDERED: NALOXONE HCL 0.4 MG/1 ML VIAL/CARP IV PRN (11:48)
[2019-08-03] MEDS ORDERED: NITROGLYCERIN SL 0.4 MG/TAB TAB SL PRN (11:48)
[2019-08-03] MEDS ORDERED: FUROSEMIDE 20 MG TAB PO PRN (11:48)
[2019-08-03] MEDS: SODIUM CHLORIDE 0.9% 1000ML 1,000 ML IV SCH ×2 (12:18→22:43)
[2019-08-03] MEDS ORDERED: INFLUENZA Vaccine HIGH DOSE 65+yrs 0.5 mL Syr IM ONE (13:45)
[2019-08-03] MEDS ORDERED: PNEUMOCOCCAL Polysaccharide Vaccine 25mcg/0.5mL vial/Syr IM ONE (13:45)
[2019-08-03] MEDS: OXYCODONE HCL IR 5 MG TAB (IMMEDIATE RELEASE) PO PRN ×2 (14:05→18:47)
[2019-08-03] MEDS: KETOROLAC TROMETHAMINE 15 MG/ML VIAL IV SCH ×2 (14:06→20:14)
[2019-08-03] MEDS: ACETAMINOPHEN 500 MG TAB PO SCH ×2 (15:27→23:33)
[2019-08-03] MEDS: CEFAZOLIN 2000MG 2,000 MG/15 ML SYR IV SCH (17:06)
[2019-08-03] MEDS: DOCUSATE SODIUM 100 MG CAP PO SCH (20:14)
[2019-08-03] MEDS: TOLTERODINE TARTRATE 1 MG TAB PO SCH (20:15)
[2019-08-03] MEDS: ASPIRIN 81 MG ECTAB PO SCH (20:15)
[2019-08-03] MEDS ORDERED: SENNA 8.6 MG TAB PO SCH (21:00)
[2019-08-03] MEDS ORDERED: NORTRIPTYLINE HCL 25 MG CAP PO SCH (21:00)
[2019-08-03] MEDS ORDERED: ATENOLOL 25 MG TABLET PO SCH (21:00)
[2019-08-03] MEDS ORDERED: ROPINIROLE HCL 1 MG TABLET PO SCH (21:00)
[2019-08-03] MEDS ORDERED: clonazePAM 1 MG TAB PO SCH (21:00)
[2019-08-04] MEDS: CEFAZOLIN 2000MG 2,000 MG/15 ML SYR IV SCH (02:31)
[2019-08-04] MEDS: KETOROLAC TROMETHAMINE 15 MG/ML VIAL IV SCH ×2 (02:32→07:31)
[2019-08-04 06:22] LABS: Eosinophils # (auto) 0.01 K/uL (0-0.5); Eosinophils % (auto) 0.1 %; Hematocrit (blood only) 33.5 % (37-47); Hemoglobin 10.7 g/dL (12.0-16.0); Immature Granulocytes # (auto) 0.01 K/uL (0.00-0.02); Immature Granulocytes % (auto) 0.1 %; Lymphocytes # (auto) 1.26 K/uL (1.2-3.4); Lymphocytes % (auto) 13.2 %; Mean Corpuscular Hgb Conc 31.9 g/dL (32-36); Mean Corpuscular Volume 93.8 fL (80-100); Mean Platelet Volume 10.9 fL (7.4-10.4); Monocytes # (auto) 0.52 K/uL (0.11-0.59); Monocytes % (auto) 5.4 %; Neutrophils # (auto) 7.77 K/uL (1.4-6.5); Neutrophils % (auto) 81.2 %; Platelet Count 253 K/uL (130-400); RDW Coefficient of Variation 13.9 % (11.5-14.5); RDW Standard Deviation 47.8 fL (36.4-46.3); Red Blood Count 3.57 M/uL (4.2-5.4); White Blood Count 9.57 K/uL (4.8-10.8)
--- NOTE | 2019-08-04 06:42 | Orthopedic Progress Note ---
Date of Service August 04, 2019 Assessment & Plan (1) History of reverse total replacement of left shoulder joint: Overall she is doing very well. She is not having much pain in the left shoulder. She was a little sick last night but is feeling better now. She will be seen by physical therapy today for ambulation and range of motion exercises. She can be discharged home later today. She will follow-up with orthopedics in 2 weeks. Present on Admission?: No Subjective Lurdes was seen and examined at bedside this morning. Overall she is doing very well. She got a little bit sick last night but she is not having any pain in the shoulder. She is feeling better now. She has no complaints. Physical Exam Musculoskeletal: On physical examination of the left shoulder, the dressing is clean and dry. She is wearing her sling as instructed. Her radial, median, and ulnar nerves are checked and intact at her wrist. Her axillary nerve was not checked yet. Results & Data Vital Signs (Past 12 Hours) Vital Signs Temp Pulse Resp BP Pulse Ox 08/04/19 02:28 36.5 C 69 16 105/70 92 08/03/19 23:25 36.6 C 58 L 16 109/73 91 08/03/19 20:11 36.7 C 88 18 159/97 H 93 Laboratory Results H & H 07/06/19 08/04/19 Range/Units 13:17 05:50 Hgb 11.4 L 10.7 L (12.0-16.0) g/dL Hct 35.5 L 33.5 L (37-47) % Coagulation 07/06/19 Range/Units 13:17 INR 1.0 (0.9-1.1) Diagnostic Findings Postoperative x-rays of the left shoulder show the prosthesis to be in anatomic alignment without any evidence of fracture, dislocation, or loosening. PG Care Time/CCT Total # of Minutes Spent Total Time Spent with Patient: Total time spent is greater than 50% in coordination of care (as documented) at patient's floor/unit and/or counseling patient:
[2019-08-04 06:46] LABS: BUN Creatinine Ratio 19.3 (10-20); Calcium 8.4 mg/dl (8.5-10.1); Creatinine Clr Calc Pharmacy 43.4 ml/min; Est GFR (African American) 65.4; Est GFR (Non-African American) 56.4; Potassium 3.9 mmol/L (3.5-5.1)
--- NOTE | 2019-08-04 06:47 | Discharge Summary ---
Date of Service August 04, 2019 Admission HPI Per Admitting Provider Lurdes is a pleasant 73-year-old female who I did a right rotator cuff repair on a year ago. She is done well with that. Unfortunately she is having a lot of left shoulder pain. Her left shoulder hurts her worse than her right shoulder ever did. She is a lot of weakness with her left shoulder. This been going on for years but has gotten worse recently. MRI and clinical examination were diagnostic for an anterior superior rotator cuff tear with chronic retraction of the entire subscapularis. After failing conservative treatment, she has elected proceed with a reverse left shoulder arthroplasty. Principal Diagnosis Left reverse shoulder arthroplasty Discharge Data Allergies Allergy/AdvReac Type Severity Reaction Status Date / Time No Known Drug Allergies Allergy Unknown . Verified 08/03/19 06:38 Consultations 08/03/19 11:48 Consult Case Management - Discharge Planning Routine Procedures Performed Operation Date: 08/03/19 08:40 Actual Procedures p Left Reverse Total Shoulder Arthroplasty(Left) - Reginald Dempsey DO Ordered Studies 08/03/19 05:00 US - OR guided needle placemen Routine 08/03/19 07:59 US - OR guided needle placemen Routine Hospital Course (1) History of reverse total replacement of left shoulder joint: On August 03, 2020 Lurdes arrived at [facility] and underwent a left reverse shoulder arthroplasty without complication. She had a general anesthetic and a left interscalene nerve block. Postoperatively she was placed in a sling and kept overnight in the hospital for postoperative medical management. Her hospital course is uneventful. On postop day #1 her H&H was stable and her pain was well controlled. She was able to participate well with physical therapy doing ambulation and range of motion exercises. She was then discharged home. She will follow-up with orthopedics in 2 weeks. Total Time Total Time Spent Total Time Spent (In Minutes): 20 Discharge Plan Discharge Items Patient Disposition: Home - Home Health Services Reason For Visit: Left Shoulder Degenerative Joint Disease Discharge Diagnosis: Left reverse shoulder arthroplasty Activity: As commented below Non-emergency contact: Surgeon Call non-emergency contact if: your wound has increased redness and your wound has increased drainage Follow-up/Referrals: Mimi De La Vega MD [Primary Care Provider] - Diet: Regular Addtl Attending Provider Instructions: Activity and Therapy Recommendations: * If you are using [facility] then therapy will be provided at your home until they feel you have accomplished all of your goals. * If you are using [facility] then Physical Therapy will be provided until they feel you are ready to start Outpatient Physical Therapy. * If you are not using home therapy then Outpatient Physical Therapy should start about 3-5 days from your day of surgery. Therapy will last about 8-12 weeks * Wear your sling for 3 weeks, unless otherwise instructed. You may remove your sling to shower and to dress, but otherwise, you should be in your sling at all times, including while sleeping * The shoulder replacement is very stable and you can use your hand while in the sling * You were shown a series of exercises in the hospital. Do these exercises daily including the exercises you were shown in physical therapy. Medications: * Narcotic You will likely be sent home from the hospital with a prescription for the narcotic pain medication that worked best throughout your stay. * Other medications may be prescribed for specific circumstances. If you have any questions, please call the office at . * Resume previous home medications unless otherwise instructed Dressing Care: Leave the plastic dressing in place for 5 days. After 5 days you may remove the plastic dressing. If the incision is not draining then you may leave the heather open to air. If there is a little bit of drainage or if the heather are getting stuck on your clothing then cover the incision with a dry dressing. The heather will be removed at your 2 week follow-up appointment. Showering: You may shower with the plastic dressing in place. Let the shower spray hit the other shoulder. You can pat the plastic dry. If the dressing becomes wet underneath the plastic then simply remove the dressing. Keep the incision dry until you are 5 days out from the day of surgery. At that time you can shower with the heather exposed. Let the soapy shower water run over the heather and pat them dry. Do not scrub or soak the incision. Things To Watch For: * Drainage from the incision site that occurs more than one week after your surgery. * Increased redness at the incision site. * Fever above 102 degrees Fahrenheit. * Unusual chest pain or shortness of breath. * Call [facility] at with any of the above problems Follow-Up Visit: Follow-up with Dr. Dempsey 2-3 weeks after your day of surgery. An appointment was probably scheduled when you signed-up for surgery in the office. If you have any questions call Office Instructions: More detailed instructions as well as Frequently Asked Questions were provided in a folder by our office when you signed-up for surgery. Please review these instructions when you get home. If you have any further questions or concerns, please feel free to call the office at [phone] Pending Studies at Discharge: No Stand-Alone Forms: [facility] [employer], Smoking Cessation Medications and DC Order Prescriptions: New tramadol 50 mg tablet 50 mg PO Q6H PRN (Reason: pain) Qty: 20 RF: 0 tramadol 50 mg tablet 50 mg PO Q6H PRN (Reason: pain) Qty: 20 RF: 0 Continued ipratropium-albuterol 0.5 mg-3 mg(2.5 mg base)/3 mL solution for nebulization 3 ml INHALATION QID PRN (Reason: Wheezing) Qty: 15 RF: 3 Combivent Respimat 20-100 mcg/actuation mist 1 puff INHALATION Q6H PRN (Reason: Wheezing) Qty: 4 RF: 2 ranitidine HCl 150 mg capsule 150 mg PO Q2D Qty: 30 RF: 5 ropinirole 2 mg tablet 2 mg PO HS Qty: 90 RF: 1 colesevelam [WelChol] 625 mg tablet 625 mg PO BID Qty: 60 RF: 5 furosemide 20 mg tablet 20 mg PO DAILY PRN (Reason: Edema) Qty: 30 RF: 5 clonazepam 1 mg tablet 1 mg PO HS Qty: 30 RF: 0 oxycodone 10 mg tablet 10 mg PO Q6H PRN (Reason: pain) Qty: 60 RF: 0 nitroglycerin 0.4 mg tablet, sublingual 0.4 mg SL UD PRN (Reason: Chest Pain) RF: 0 acetaminophen 500 mg tablet 500 mg PO UD PRN (Reason: Pain) RF: 0 tolterodine [Detrol] 1 mg Tablet 1 mg PO BID RF: 0 atenolol [Tenormin] 25 mg Tablet 25 mg PO HS RF: 0 mometasone 50 mcg/actuation Worden,Non-Aerosol 2 spray INTRANASAL DAILY RF: 0 ergocalciferol (vitamin D2) 50,000 unit Capsule 50,000 unit PO UD RF: 0 nortriptyline 50 mg Capsule 50 mg PO HS RF: 0 melatonin 5 mg Tablet 5 mg PO HS PRN (Reason: Insomnia) RF: 0 loperamide [Imodium A-D] 2 mg Tablet 2 mg PO Q3H PRN (Reason: Diarrhea) RF: 0 aspirin 81 mg Tablet,Chewable 81 mg PO BID Qty: 84 RF: 0 venlafaxine 75 mg tablet extended release 24 hr 75 mg PO QAM RF: 0 ferrous sulfate 325 mg (65 mg iron) tablet 325 mg PO DAILY RF: 0 Discharge Orders: Discharge Order (Routine); Ordered 08/04/19 Ordered By: Reginald Dempsey Admission Data Admit Date/Time: 08/03/19 10:49 Attending Provider: Reginald Dempsey Admit Provider: Reginald Dempsey Primary Care Provider: Mimi De La Vega
[2019-08-04] MEDS: ACETAMINOPHEN 500 MG TAB PO SCH (07:30)
[2019-08-04] MEDS ORDERED: dexAMETHasone 4 MG TAB PO SCH (08:00)
[2019-08-04] MEDS: TOLTERODINE TARTRATE 1 MG TAB PO SCH (08:55)
[2019-08-04] MEDS: DOCUSATE SODIUM 100 MG CAP PO SCH (08:55)
[2019-08-04] MEDS: ASPIRIN 81 MG ECTAB PO SCH (08:55)
[2019-08-04] MEDS: OXYCODONE HCL IR 5 MG TAB (IMMEDIATE RELEASE) PO PRN (08:55)
[2019-08-04] MEDS ORDERED: FERROUS SULFATE 325 MG TAB PO SCH (09:00)
[2019-08-04] MEDS ORDERED: VENLAFAXINE HCL XR 75 MG CAPXR PO SCH (09:00)
[2019-08-04] MEDS ORDERED: FLUTICASONE PROPIONATE NA SPR 16 GM BTL SCH (09:00)
[2019-08-04] MEDS ORDERED: MULTIVITAMIN TAB PO SCH (09:00)
== END 2019-08-04 13:25 | disposition home or self-care (01) | DRG 483 ==
LOC: ASU 06:07 → 3E 10:49

== ENCOUNTER 2020-02-25 11:20 | Observation (INO) ==
--- NOTE | 2020-02-04 13:33 | PAT Medication Instructions ---
Medication Instructions Date of Service February 04, 2020 Home Medications Medication Instructions Recorded aspirin 81 mg PO BID #84 tab 09/27/18 ipratropium 0.5 mg-albuterol 3 mg 3 ml INHALATION QID PRN #15 ml 05/15/19 (2.5 mg base)/3 mL nebulization soln ipratropium 20 mcg-albuterol 100 1 puff INHALATION Q6H PRN #4 gm 05/15/19 mcg/actuation mist for inhalation ropinirole 2 mg tablet 2 mg PO HS #90 tab 05/15/19 furosemide 20 mg tablet 20 mg PO DAILY PRN #30 tab 06/30/19 tramadol 50 mg PO Q6H PRN #20 tab 08/04/19 trazodone 50 mg tablet 50 - 100 mg PO HS #60 tab 10/29/19 diclofenac potassium 50 mg tablet 50 mg PO BID PRN #60 tab 11/15/19 venlafaxine 75 mg tablet,extended 75 mg PO QAM #90 tab 12/09/19 release 24 hr clonazepam 1 mg tablet 1 mg PO HS #30 tab 01/13/20 miscellaneous medical supply #1 ea 01/20/20 oxycodone 10 mg tablet 10 mg PO Q6H PRN #60 tab 01/26/20 miscellaneous medical supply See Rx Instructions MS .COMPLEX #1 01/27/20 ea atenolol [Tenormin] 25 mg PO HS ergocalciferol (vitamin D2) 50,000 unit PO UD melatonin 5 mg PO HS PRN mometasone 2 spray INTRANASAL DAILY PRN nortriptyline 50 mg PO HS tolterodine [Detrol] 1 mg PO BID loperamide [Imodium A-D] 2 mg PO Q3H PRN aspirin 81 mg PO BID ipratropium 0.5 mg-albuterol 3 mg (2.5 mg base)/3 mL nebulization soln 3 ml INHALATION QID PRN ipratropium 20 mcg-albuterol 100 mcg/actuation mist for inhalation 1 puff INHALATION Q6H PRN ropinirole 2 mg tablet 2 mg PO HS acetaminophen 500 mg tablet 500 mg PO UD PRN furosemide 20 mg tablet 20 mg PO DAILY PRN tramadol 50 mg PO Q6H PRN trazodone 50 mg tablet 50 - 100 mg PO HS diclofenac potassium 50 mg tablet 50 mg PO BID PRN venlafaxine 75 mg tablet,extended release 24 hr 75 mg PO QAM clonazepam 1 mg tablet 1 mg PO HS oxycodone 10 mg tablet 10 mg PO Q6H PRN ASK your surgeon for instructions diclofenac potassium 50 mg tablet 50 mg PO BID PRN ASK your prescriber and surgeon aspirin 81 mg PO BID STOP taking 24 hours before surgery ropinirole 2 mg tablet 2 mg PO HS DO NOT take the morning of surgery ergocalciferol (vitamin D2) 50,000 unit PO UD tolterodine [Detrol] 1 mg PO BID loperamide [Imodium A-D] 2 mg PO Q3H PRN furosemide 20 mg tablet 20 mg PO DAILY PRN Take morning of surgery With a small sip of water, OTHERWISE NOTHING TO EAT OR DRINK AFTER MIDNIGHT: mometasone 2 spray INTRANASAL DAILY PRN (if needed) ipratropium 0.5 mg-albuterol 3 mg (2.5 mg base)/3 mL nebulization soln 3 ml INHALATION QID PRN (if needed) ipratropium 20 mcg-albuterol 100 mcg/actuation mist for inhalation 1 puff INHALATION Q6H PRN (if needed) acetaminophen 500 mg tablet 500 mg PO UD PRN (okay to take up to 4 hours prior to surgery if needed) tramadol 50 mg PO Q6H PRN (okay to take up to 4 hours prior to surgery if needed) venlafaxine 75 mg tablet,extended release 24 hr 75 mg PO QAM oxycodone 10 mg tablet 10 mg PO Q6H PRN (okay to take up to 4 hours prior to surgery if needed) Take evening before surgery atenolol [Tenormin] 25 mg PO HS melatonin 5 mg PO HS PRN (if needed) mometasone 2 spray INTRANASAL DAILY PRN (if needed) nortriptyline 50 mg PO HS tolterodine [Detrol] 1 mg PO BID loperamide [Imodium A-D] 2 mg PO Q3H PRN (if needed) ipratropium 0.5 mg-albuterol 3 mg (2.5 mg base)/3 mL nebulization soln 3 ml INHALATION QID PRN (if needed) ipratropium 20 mcg-albuterol 100 mcg/actuation mist for inhalation 1 puff INHALATION Q6H PRN (if needed) acetaminophen 500 mg tablet 500 mg PO UD PRN (if needed) furosemide 20 mg tablet 20 mg PO DAILY PRN (if needed) tramadol 50 mg PO Q6H PRN (if needed) trazodone 50 mg tablet 50 - 100 mg PO HS clonazepam 1 mg tablet 1 mg PO HS oxycodone 10 mg tablet 10 mg PO Q6H PRN (if needed) Other Notes If you have any questions please call us at [phone] or [phone] or [phone] or [phone]
--- NOTE | 2020-02-08 14:09 | Anesthesiology Consultation ---
Date of Service February 08, 2020 Assessment & Plan (1) Encounter for pre-operative examination: Per PAT assessment on 02/07: Travel screen- Lives in [facility]. Travel to [facility] for doctor appt. Wears mask in public. No known COVID-19 positive contacts. No current COVID-19 related symptoms. No hx of COVID-19 testing in past 30 days. - S/P Left reverse TSA: 08/03/19: Glidescope #3, ETT 7.5 at [facility] Chart Review Chart Review: Acceptable Risk for Surgery and Patient seen in Pre Admission Testing Teaching & Discussion Pre-Anesthesia Teaching/Discussion Notes: Instructed NPO after midnight before surgery,except medications with 15 cc of water. Medication instructions provided according to the PAT guidelines. History Surgery Operation Date: 02/25/20 10:40 Proposed Procedures p Left Anterior Total Hip Arthroplasty - Reginald Dempsey DO Height/Weight Height: 4 ft 11 in Weight: 76.6 kg Allergies Allergy/AdvReac Type Severity Reaction Status Date / Time No Known Drug Allergies Allergy Unknown . Verified 02/08/20 15:06 Medications Home Medications Medication Instructions Recorded Confirmed Last Taken atenolol [Tenormin] 25 mg PO HS 08/26/18 02/08/20 07/31/19 13:00 ergocalciferol (vitamin D2) 50,000 unit PO UD 08/26/18 02/08/20 08/26/18 melatonin 5 mg PO HS PRN 08/26/18 02/08/20 07/31/19 22:00 mometasone 2 spray INTRANASAL DAILY PRN 08/26/18 02/08/20 08/02/19 10:00 nortriptyline 50 mg PO HS 08/26/18 02/08/20 07/31/19 21:00 tolterodine [Detrol] 1 mg PO BID 08/26/18 02/08/20 07/31/19 23:00 loperamide [Imodium A-D] 2 mg PO Q3H PRN 09/02/18 02/08/20 07/31/19 13:00 aspirin 81 mg PO BID #84 tab 09/27/18 02/08/20 08/02/19 23:30 ipratropium 0.5 mg-albuterol 3 mg 3 ml INHALATION QID PRN #15 ml 05/15/19 02/08/20 07/31/19 13:00 (2.5 mg base)/3 mL nebulization soln ipratropium 20 mcg-albuterol 100 1 puff INHALATION Q6H PRN #4 gm 05/15/19 02/08/20 08/01/19 mcg/actuation mist for inhalation ropinirole 2 mg tablet 2 mg PO HS #90 tab 05/15/19 02/08/20 07/31/19 23:00 acetaminophen 500 mg tablet 500 mg PO UD PRN tab 05/20/19 02/08/20 Unknown furosemide 20 mg tablet 20 mg PO DAILY PRN #30 tab 06/30/19 02/08/20 Unknown tramadol 50 mg PO Q6H PRN #20 tab 08/04/19 02/08/20 Unknown trazodone 50 mg tablet 50 - 100 mg PO HS #60 tab 10/29/19 02/08/20 Unknown diclofenac potassium 50 mg tablet 50 mg PO BID PRN #60 tab 11/15/19 02/08/20 Unknown venlafaxine 75 mg tablet,extended 75 mg PO QAM #90 tab 12/09/19 02/08/20 Unknown release 24 hr clonazepam 1 mg tablet 1 mg PO HS #30 tab 01/13/20 02/08/20 Unknown oxycodone 10 mg tablet 10 mg PO TID PRN #90 tab 02/07/20 02/08/20 Unknown miscellaneous medical supply #1 ea 02/08/20 02/08/20 Unknown miscellaneous medical supply See Rx Instructions MS GOLDBERG #1 02/08/20 Unknown ea Past Medical History Medical History Anemia chronic, baseline hgb in the ' Asthma controlled Carpal tunnel syndrome of left wrist Depression Dyslipidemia GERD (gastroesophageal reflux disease) HTN (hypertension) Insomnia Lumbar spinal stenosis Nocturnal hypoxemia 2 LPM O2 QHS Osteoarthritis Restless leg syndrome Sleep apnea no device, pt states she was retested after weight loss and no longer needs treatment. Wears O2 at night (2L) for nocturnal hypoxemia. Urge incontinence Vertigo Exercise / Class Metabolic Activity III < 4 Walking/Shop/Light housework (uses walker PRN) Past Family History Family History Mother Father Denies family history of Colon cancer Ovarian cancer Prostate cancer Myocardial infarction Breast cancer Colorectal cancer Past Surgical History Surgical History History of cholecystectomy History of colonoscopy History of discectomy LUMBAR, 1979 History of fusion of cervical spine GOOD ROM History of gastric bypass 2010 History of repair of rotator cuff Right History of reverse total replacement of left shoulder joint (~07/2019) History of total left knee replacement 09/25/2018 [facility] History of tubal ligation Hx of breast reduction, elective Hx of plastic surgery PANNICULECTOMY Past Anesthesia History Difficult Airway ( Left reverse TSA: 08/03/19: Glidescope #3, ETT 7.5 at [facility]) and No Family Hx of Anesthesia Complications History of PONV No Hx of PONV and No Hx of Motion Sickness Social History Smoking Status: Former smoker tobacco type: cigarettes Smoking cigarettes per day: QUIT 15 YEARS AGO Do You Dip or Chew Tobacco: No Hx Alcohol Use: No Hx Substance Use: No substance use type: does not use Review of Systems Patient denies chest pain, shortness of breath, fever, chills, cough, wheezing, palpitations. Physical Exam Vital Signs VITALS BP 130/84 P 57 TEMP 98.3 SP02 93%RA RESP 16 PHYSICAL Full neck and c-spine range of motion. Full TMJ range of motion. TMD 3 finger breaths Mallampati Score 3 Dentition: full dentures upper/lower Lungs: clear throughout to auscultation Cardiac: regular rate and rhythm, no murmurs noted Spine: normal Carotid arteries: negative bruit Extremities: no edema Testing Laboratory Results 02/08/20 13:51 02/08/20 13:51 PT 10.6 Seconds (9.0-12.0) 02/08/20 13:51 INR 1.0 (0.9-1.1) 02/08/20 13:51 APTT 25.4 Seconds (21.0-31.0) 02/08/20 13:51 Blood Type A Positive 02/08/20 13:51 Antibody Screen NEGATIVE 02/08/20 13:51 Electrocardiogram Date: 05/24/19 Findings: + SB @ (58) Chest X-Ray Date: 02/08/20 Findings: + NAD
--- NOTE | 2020-02-08 14:50 | XRay Report ---
XR chest Pre-admission PA/Lat HISTORY: 74 years-old Female pat preoperative exam. No acute chest complaints COMPARISON: Chest radiographs 09/02/2018 TECHNIQUE: PA and lateral views of the chest FINDINGS: Cardiomediastinal and hilar silhouettes are within normal limits. No pneumothorax, pleural effusion, airspace consolidation or overt pulmonary edema. Degenerative changes of the spine and right shoulder . Reverse left shoulder total joint arthroplasty. Fusion hardware noted within the cervical spine. IMPRESSION: No acute process. ACT 112: Negative or not required by law. The above report was generated using voice recognition software. It may contain grammatical, syntax o r spelling errors. Electronically signed by: Onofre Chavez M.D. 02/08/2020 2:49 PM
[2020-02-08 15:34] LABS: Basophils # (auto) 0.02 K/uL (0-0.2); Basophils % (auto) 0.3 %; Eosinophils # (auto) 0.12 K/uL (0-0.5); Eosinophils % (auto) 2.1 %; Hematocrit (blood only) 34.2 % (37-47); Hemoglobin 10.8 g/dL (12.0-16.0); Immature Granulocytes # (auto) 0.01 K/uL (0.00-0.02); Immature Granulocytes % (auto) 0.2 %; Lymphocytes # (auto) 1.96 K/uL (1.2-3.4); Lymphocytes % (auto) 33.7 %; Mean Corpuscular Hemoglobin 28.6 pg (25-34); Mean Corpuscular Hgb Conc 31.6 g/dL (32-36); Mean Corpuscular Volume 90.5 fL (80-100); Mean Platelet Volume 10.7 fL (7.4-10.4); Monocytes % (auto) 6.9 %; Neutrophils % (auto) 56.8 %; Platelet Count 276 K/uL (130-400); RDW Coefficient of Variation 14.8 % (11.5-14.5); RDW Standard Deviation 48.3 fL (36.4-46.3); Red Blood Count 3.78 M/uL (4.2-5.4); White Blood Count 5.81 K/uL (4.8-10.8)
[2020-02-08 15:50] LABS: Partial Thromboplastin Ratio 0.9; Partial Thromboplastin Time 25.4 Seconds (21.0-31.0); Prothrombin Time 10.6 Seconds (9.0-12.0)
[2020-02-08 15:58] LABS: BUN Creatinine Ratio 21.2 (10-20); Calcium 8.6 mg/dl (8.5-10.1); Creatinine Clr Calc Pharmacy 63.8 ml/min; Est GFR (Non-African American) 85.4; Potassium 3.4 mmol/L (3.5-5.1)
--- NOTE | 2020-02-24 08:24 | History & Physical Report ---
Date of Service February 24, 2020 Assessment & Plan (1) Osteoarthritis of left knee: We will proceed with a left anterior total hip arthroplasty. Postoperatively she will be started on aspirin for DVT prophylaxis and kept overnight in the hospital for postoperative medical management. She plans to use home health of [facility] upon discharge. Lurdes is a low risk for joint placement surgery without any major comorbidities. History of Present Illness Chief Complaint: Primary osteoarthritis of the left hip Primary Care Provider: Mimi De La Vega MD Lurdes is a pleasant 74-year-old female who is been dealing with chronic increasing left hip and groin pain. X-rays, MRI, and physical examination were all diagnostic for advanced osteoarthritis of the left hip. After failing conservative treatment, she has elected to proceed with a left anterior total hip arthroplasty. Allergies Allergy/AdvReac Type Severity Reaction Status Date / Time No Known Drug Allergies Allergy Unknown . Verified 02/08/20 15:06 Home Medications Home Medications Medication Instructions Recorded Confirmed Type atenolol [Tenormin] 25 mg PO HS 08/26/18 02/08/20 History ergocalciferol (vitamin D2) 50,000 unit PO UD 08/26/18 02/08/20 History melatonin 5 mg PO HS PRN 08/26/18 02/08/20 History mometasone 2 spray INTRANASAL DAILY PRN 08/26/18 02/08/20 History nortriptyline 50 mg PO HS 08/26/18 02/08/20 History tolterodine [Detrol] 1 mg PO BID 08/26/18 02/08/20 History loperamide [Imodium A-D] 2 mg PO Q3H PRN 09/02/18 02/08/20 History aspirin 81 mg PO BID #84 tab 09/27/18 02/08/20 Rx ipratropium 0.5 mg-albuterol 3 mg 3 ml INHALATION QID PRN #15 ml 05/15/19 02/08/20 Rx (2.5 mg base)/3 mL nebulization soln ipratropium 20 mcg-albuterol 100 1 puff INHALATION Q6H PRN #4 gm 05/15/19 02/08/20 Rx mcg/actuation mist for inhalation ropinirole 2 mg tablet 2 mg PO HS #90 tab 05/15/19 02/08/20 Rx acetaminophen 500 mg tablet 500 mg PO UD PRN tab 05/20/19 02/08/20 History furosemide 20 mg tablet 20 mg PO DAILY PRN #30 tab 06/30/19 02/08/20 Rx tramadol 50 mg PO Q6H PRN #20 tab 08/04/19 02/08/20 Rx trazodone 50 mg tablet 50 - 100 mg PO HS #60 tab 10/29/19 02/08/20 Rx diclofenac potassium 50 mg tablet 50 mg PO BID PRN #60 tab 11/15/19 02/08/20 Rx venlafaxine 75 mg tablet,extended 75 mg PO QAM #90 tab 12/09/19 02/08/20 Rx release 24 hr clonazepam 1 mg tablet 1 mg PO HS #30 tab 01/13/20 02/08/20 Rx miscellaneous medical supply #1 ea 02/08/20 02/08/20 Rx miscellaneous medical supply See Rx Instructions MS GOLDBERG #1 02/08/20 Rx ea oxycodone 10 mg tablet 10 mg PO TID PRN #90 tab 02/09/20 Rx Past Med/Surg History Medical History Anemia chronic, baseline hgb in the 10's Asthma controlled Carpal tunnel syndrome of left wrist Depression Dyslipidemia GERD (gastroesophageal reflux disease) HTN (hypertension) Insomnia Lumbar spinal stenosis Nocturnal hypoxemia 2 LPM O2 QHS Osteoarthritis Restless leg syndrome Sleep apnea no device, pt states she was retested after weight loss and no longer needs treatment. Wears O2 at night (2L) for nocturnal hypoxemia. Urge incontinence Vertigo Surgical History History of cholecystectomy History of colonoscopy History of discectomy LUMBAR, 1979 History of fusion of cervical spine GOOD ROM History of gastric bypass 2010 History of repair of rotator cuff Right History of reverse total replacement of left shoulder joint (~07/2019) History of total left knee replacement 09/25/2018 [facility] History of tubal ligation Hx of breast reduction, elective Hx of plastic surgery PANNICULECTOMY Family History Mother Father Denies family history of Colon cancer Ovarian cancer Prostate cancer Myocardial infarction Breast cancer Colorectal cancer Social History Smoking Status: Former smoker Cigarettes Per Day: QUIT 15 YEARS AGO; Second Hand Exposure: No; Hx Alcohol Use: No Hx Substance Use: No Preferred Language: [place] Communication Ability: Effective Visual Impairment: No Limitations Hearing Ability: Normal Counseling Specialist Required: No Beliefs That Will Affect Care: None marital status: marital status details: Three children Current Living Situation: Family Current Living Situation Comment: lives with daughter current occupational status: retired Feels Safe at Home: Yes Dental Care, Regularly: Yes Physical Activity Frequency: Does not Exercise Physical Activity Frequency Comment: Limited by physical condition Seatbelt Use: always Review of Systems Review of Systems: All systems reviewed & are unremarkable except as noted in HPI & below Physical Exam Constitutional: WD/WN, vitals as above Eyes: PERRL, conjunctivae normal, anicteric sclerae ENMT: external ear and nose normal, oropharynx normal Neck: trachea midline, no thyromegaly Respiratory: normal respiratory effort Cardiovascular: RRR, no murmur, no edema Gastrointestinal (Abdomen): normal bowel sounds, soft, nontender, no hepatosplenomegaly Musculoskeletal: Physical examination of the left hip reveals decreased range of motion with flexion, internal and external rotation. There is significant groin pain with forced internal rotation of the hip his leg lengths are essentially equal. Psychiatric: A+Ox3, euthymic affect Results & Data Results & Data ([facility]) Diagnostic Findings Radiographs of the left hip and pelvis demonstrate advanced osteoarthritis with joint space narrowing osteophyte formation and [id number] articulation. PG Care Time/CCT Total # of Minutes Spent Total Time Spent with Patient: Total time spent is greater than 50% in coordination of care (as documented) at patient's floor/unit and/or counseling patient: Coding Level of Care Code 71172 Initial Inpt Care Lvl 3 Diagnoses Osteoarthritis of left knee M17.12
[~2020-02-25 11:20] MED LIST changes: +BUPIVACAINE 0.5 % 5 MG/1 ML PF 10ML VIAL ONE; -CEFAZOLIN 1000MG 1,000 MG/7.5 ML SYR IV SCH; +LR 500ML BOLUS, THEN 15ML/HR IV SCH; +MIDAZOLAM HCL 1 MG/ML 2ML VIAL ONE; +PROPOFOL IV EMULSION 10 MG/ML 20 ML VIAL IV ONE; +fentaNYL citrate 100 MCG/2 ML VIAL ONE
--- NOTE | 2020-02-25 11:54 | History & Physical Bridge Note ---
Date of Service February 25, 2020 History & Physical Bridge Note I have examined the patient, reviewed the History & Physical and in the interval since the performance of the History & Physical I have noted the following changes of clinical significance: no changes noted
[2020-02-25] MEDS ORDERED: CEFAZOLIN 1,000 MG/7.5 ML IV PUSH IV ONE (12:05)
[2020-02-25] MEDS ORDERED: HYDROmorphone INJ 2 MG/ML SYR/VIAL IV PRN (12:39)
[2020-02-25] MEDS ORDERED: ATROPINE SULFATE 0.1 MG/ML 10ML SYR IV PRN (12:39)
[2020-02-25] MEDS ORDERED: ePHEDrine sulfate 50 MG/ML AMP IV PRN (12:39)
[2020-02-25] MEDS ORDERED: ONDANSETRON INJ 2 MG/ML 2 ML VIAL IV PRN ×2 (12:39→16:53)
[2020-02-25] MEDS ORDERED: fentaNYL citrate 100 MCG/2 ML VIAL IV PRN (12:39)
[2020-02-25] MEDS ORDERED: ORTHO JOINT ANESTHETIC ONE (13:16)
[2020-02-25] MEDS ORDERED: ONDANSETRON INJ 2 MG/ML 2 ML VIAL ONE (13:43)
[2020-02-25] MEDS ORDERED: fentaNYL citrate 100 MCG/2 ML VIAL ONE (13:48)
[2020-02-25] MEDS ORDERED: HYDROmorphone INJ 2 MG/ML SYR/VIAL ONE (13:56)
[2020-02-25] MEDS ORDERED: LABETALOL HCL IV 5 MG/ML 20ML IV ONE (14:23)
--- NOTE | 2020-02-25 15:10 | Operative Report ---
PG Post Operative Report Pre & Post Diagnosis Operation Date: 02/25/20 13:30 Pre-Op Diagnosis: LEFT HIP DEGENERATIVE JOINT DISEASE Post-Op Diagnosis: LEFT HIP DEGENERATIVE JOINT DISEASE I identified the patient and participated in the time-out.: Yes Procedure Operation Date: 02/25/20 13:30 Actual Procedures p Left Anterior Total Hip Arthroplasty(Left) - Reginald Dempsey DO Surgeon Reginald Dempsey DO Steel Plate Caulker Reginald Hernandez PAC Estimated Blood Loss 250 Findings Consistent with Post-Op Diagnosis Specimens Left femoral head Complications none Disposition Disposition: Recovery Room Indications Lurdes is a pleasant 74-year-old female who presented my office with chronic increasing left hip and groin pain. X-rays, MRI, and clinical examination were diagnostic for advanced osteoarthritis of the left hip. After failing conservative treatment, she elected proceed with a left anterior total hip arthroplasty. Description of Procedure Implants used I used a Biomet Taperloc total hip arthroplasty system with a size 12 standard offset micro Taperloc stem, a 46 mm G7 cup with a 15mm screw, an E1 polyethylene liner, a 32 mm ceramic head with a +3 neck. Lurdes arrived at the hospital for the above procedure. She was seen in the preoperative holding area and the operative extremity was identified and signed. She was given a spinal anesthetic, a preoperative antibiotic, and TXA. She was then taken back to the operating room and laid on the table in the supine position. She was given basic sedation. The operative leg was secured to a Puristst leg positioner. The hip was then prepped and draped in sterile fashion. A timeout was done and the patient and the operative extremity was properly identified. An anterior approach was used. Dissection was taken down through the fascia and the tensor muscle belly was retracted laterally and the rectus was retracted medially. The circumflex vessels were identified and ligated. The capsule was then incised and tagged for later repair. The femoral neck was then cut and the femoral head was removed. The acetabulum was exposed. Time was spent doing a complete circumferential labral release. Sequential reaming of the acetabulum up to a size 45 reamer was done. Final reamings were done under fluoroscopy to ensure appropriate version. Unfortunately, after reaming the 46, I noticed some protrusion through the anterior wall. This caused me to change the orientation of my screws. A Biomet 46 mm G7 cup was then impacted into place. A multihole cup was not available and that small size. I was able to get an excellent pres s-fit. A single 15 mm screw was placed. The E1 polyethylene liner was then snapped into place. Surrounding soft tissues were then injected with 100 cc of an orthopedic pain control cocktail. The proximal femur was then exposed. Sequential broaching up to a size 12 broach was done. Off that broach a size 32 head with a +3 neck was trialed. The hip was reduced and fluoroscopic images showed anatomic alignment of the implants in acceptable length. The broach was removed. The final size 12 standard offset micro Taperloc stem was then impacted into place. A ceramic 32 mm head with a +3 neck was then impacted onto the stem and the hip was reduced. Final fluoroscopic images showed anatomic alignment of the hip. The capsule was then closed with #1 Vicryl suture. A dilute betadyne lavage was then done for 3 minutes. The joint was then irrigated with normal saline solution. The fascia was closed with #1 PDS suture. Skin was closed with 2-0 Vicryl, heather, and a Silverlon dressing. She was then transferred to a hospital bed and taken to the post anesthesia care unit in stable condition. She tolerated the procedure well. Reginald Hernandez PA-C, was present for the entire procedure. He was critical for patient positioning, prepping, draping, retraction exposure, wound closure and application of sterile dressing. I attest to the content of the Intraoperative Record and any orders documented therein. Any exceptions are noted below.
--- NOTE | 2020-02-25 15:37 | Fluoroscopy Report ---
FL hip LT 1V CLINICAL HISTORY: LEFT ANTERIOR HIP COMPARISON STUDY: None. FLUOROSCOPY TIME: 29 seconds. FINDINGS: 2 fluoroscopic spot images of the left hip demonstrate a left total arthroplasty. The hardw are is intact. No fracture or dislocation. IMPRESSION: Fluoroscopy provided for left total hip arthroplasty. ACT 112: Negative or not required by law. Electronically signed by: Ye Ayala M.D. 02/25/2020 3:35 PM
--- NOTE | 2020-02-25 16:29 | XRay Report ---
XR hip 1V LT w pelvis HISTORY: 74 years-old Female IN PACU - A/P PELVIS and LATERAL HIP [total joint arthroplasty COMPARISON: Hip radiographs 10/06/2019 TECHNIQUE: AP view of the pelvis with crosstable lateral view of the left hip FINDINGS: Left hip total joint arthroplasty demonstrates satisfactory alignment. No acute fracture or retained foreign body. Skin heather are noted along with expected postsurgical soft tissue swelling and deep t issue air. Moderate right hip osteoarthritis. IMPRESSION: Left hip total joint arthroplasty with expected postoperative findings. ACT 112: Negative or not required by law. The above report was generated using voice recognition software. It may contain grammatical, syntax o r spelling errors. Electronically signed by: Onofre Chavez M.D. 02/25/2020 4:27 PM
--- NOTE | 2020-02-25 16:35 | Anesthesiology Progress Note ---
Date of Service February 25, 2020 Anesthesia Post Procedure Vital Signs Vital Signs: Temp Pulse Pulse Resp BP Pulse Ox 02/25/20 16:30 36.6 C 64 15 120/60 95 02/25/20 16:20 36.6 C 69 10 L 125/65 95 02/25/20 16:10 36.6 C 71 15 128/33 L 98 02/25/20 16:00 67 17 110/61 97 02/25/20 15:50 78 20 140/74 94 02/25/20 15:42 36.1 C L 72 14 139/72 99 02/25/20 12:15 36.7 C 74 18 168/72 H 98 Transfer of Care Handoff Completed per policy Notes Mental Status: alert / awake / arousable Patient Amnestic to Procedure: Yes Nausea / Vomiting: adequately controlled Pain: adequately controlled Airway Patency, RR, SpO2: stable & adequate BP & HR: stable & adequate Hydration State: stable & adequate Anesthetic Complications: no major complications apparent
[2020-02-25] MEDS ORDERED: HYDROmorphone INJ 0.5 MG/0.5 ML SYR IV PRN (16:53)
[2020-02-25] MEDS ORDERED: ERGOCALCIFEROL 50,000 UNITS CAP PO SCH (16:53)
[2020-02-25] MEDS ORDERED: LOPERAMIDE HCL 2 MG CAP PO PRN (16:53)
[2020-02-25] MEDS ORDERED: FUROSEMIDE 20 MG TAB PO PRN (16:53)
[2020-02-25] MEDS ORDERED: MAGNESIUM HYDROXIDE SUSP 30 ML UDC PO PRN (16:53)
[2020-02-25] MEDS ORDERED: MELATONIN 3 MG TAB PO PRN (16:53)
[2020-02-25] MEDS ORDERED: NALOXONE HCL 0.4 MG/1 ML VIAL/CARP IV PRN (16:53)
[2020-02-25] MEDS ORDERED: IPRATROPIUM BROMIDE/ALBUTEROL respimat INH INH PRN (16:53)
[2020-02-25] MEDS ORDERED: bisacodyL 10 MG SUPP PR PRN (16:53)
[2020-02-25] MEDS ORDERED: METOCLOPRAMIDE HCL INJ 5 MG/ML 2 ML VIAL IV PRN (16:53)
[2020-02-25] MEDS ORDERED: ALBUT/IPRATROP 3MG/0.5MG NEB 3 ML VIAL INH PRN (16:53)
[2020-02-25] MEDS ORDERED: FLUTICASONE PROPIONATE NA SPR 16 GM BTL PRN (17:05)
[2020-02-25] MEDS ORDERED: SODIUM CHLORIDE 0.9% 1000ML 1,000 ML IV SCH (18:00)
[2020-02-25] MEDS: KETOROLAC TROMETHAMINE 15 MG/ML VIAL IV SCH ×2 (18:27→23:01)
[2020-02-25] MEDS: TOLTERODINE TARTRATE 1 MG TAB PO SCH (21:19)
[2020-02-25] MEDS: clonazePAM 1 MG TAB PO SCH (21:19)
[2020-02-25] MEDS: ACETAMINOPHEN 500 MG TAB PO SCH (21:19)
[2020-02-25] MEDS: ATENOLOL 25 MG TABLET PO SCH (21:19)
[2020-02-25] MEDS: SENNA 8.6 MG TAB PO SCH (21:20)
[2020-02-25] MEDS: ROPINIROLE HCL 1 MG TABLET PO SCH (21:20)
[2020-02-25] MEDS: ASPIRIN 81 MG ECTAB PO SCH (21:20)
[2020-02-25] MEDS: DOCUSATE SODIUM 100 MG CAP PO SCH (21:20)
[2020-02-25] MEDS: NORTRIPTYLINE HCL 25 MG CAP PO SCH (21:20)
[2020-02-25] MEDS: CEFAZOLIN 2000MG 2,000 MG/15 ML SYR IV SCH (21:21)
[2020-02-26] MEDS: OXYCODONE HCL IR 5 MG TAB (IMMEDIATE RELEASE) PO PRN (02:43)
[2020-02-26] MEDS: CEFAZOLIN 2000MG 2,000 MG/15 ML SYR IV SCH (05:18)
[2020-02-26] MEDS: ACETAMINOPHEN 500 MG TAB PO SCH ×3 (05:18→21:00)
[2020-02-26] MEDS: KETOROLAC TROMETHAMINE 15 MG/ML VIAL IV SCH ×4 (05:18→23:19)
[2020-02-26 05:58] LABS: Eosinophils # (auto) 0.01 K/uL (0-0.5); Eosinophils % (auto) 0.1 %; Hematocrit (blood only) 27.8 % (37-47); Hemoglobin 9.1 g/dL (12.0-16.0); Immature Granulocytes # (auto) 0.01 K/uL (0.00-0.02); Immature Granulocytes % (auto) 0.1 %; Lymphocytes # (auto) 0.69 K/uL (1.2-3.4); Lymphocytes % (auto) 6.8 %; Mean Corpuscular Hemoglobin 29.5 pg (25-34); Mean Corpuscular Hgb Conc 32.7 g/dL (32-36); Mean Corpuscular Volume 90.3 fL (80-100); Mean Platelet Volume 10.8 fL (7.4-10.4); Monocytes % (auto) 5.9 %; Neutrophils # (auto) 8.78 K/uL (1.4-6.5); Neutrophils % (auto) 87.1 %; Platelet Count 222 K/uL (130-400); RDW Coefficient of Variation 14.5 % (11.5-14.5); RDW Standard Deviation 48.3 fL (36.4-46.3); Red Blood Count 3.08 M/uL (4.2-5.4); White Blood Count 10.09 K/uL (4.8-10.8)
[2020-02-26 06:38] LABS: BUN Creatinine Ratio 22.8 (10-20); Calcium 7.9 mg/dl (8.5-10.1); Creatinine Clr Calc Pharmacy 59.8 ml/min; Est GFR (African American) 95.9; Est GFR (Non-African American) 82.7; Potassium 4.3 mmol/L (3.5-5.1)
--- NOTE | 2020-02-26 07:33 | Orthopedic Progress Note ---
Date of Service February 26, 2020 Assessment & Plan (1) Status post left hip replacement: With regards to her hip she is doing well but I am very concerned about her left calf. Ongoing and send her for an urgent venous Doppler ultrasound of her left lower extremity to out a DVT. I will treat appropriately then. Right now she is on aspirin for DVT prophylaxis. We will hold on physical therapy until she gets her Doppler results back. She will stay with us in the hospital today and she will possibly be discharged to home tomorrow. Present on Admission?: Yes Subjective Lurdes was seen and examined at bedside this morning. Overall she is not having much pain in her left hip but she is having a lot of pain in her left calf. That is her biggest complaint. She says she has constant cramping in her left calf. She has been up to use the bathroom. She said her left leg felt like a weight until earlier this morning as the block wore off. Physical Exam Musculoskeletal: On physical examination of the left hip, the Silverlon dressing is clean and dry. Her leg lengths are equal. She has active dorsiflexion plantarflexion of her left ankle. She has significant tenderness to deep palpation in the posterior aspect of her left calf. Results & Data ([facility]) Vital Signs (Past 12 Hours) Vital Signs Temp Pulse Resp BP BP Pulse Ox 02/26/20 07:13 36.5 C 56 L 16 116/77 94 02/26/20 04:00 36.5 C 64 16 117/58 L 93 02/25/20 23:01 36.7 C 61 14 94/64 L 97 02/25/20 21:18 36.6 C 70 16 119/68 97 02/25/20 20:20 36.5 C Laboratory Results H & H 02/08/20 02/26/20 Range/Units 13:51 05:07 Hgb 10.8 L 9.1 L (12.0-16.0) g/dL Hct 34.2 L 27.8 L (37-47) % Coagulation 02/08/20 Range/Units 13:51 INR 1.0 (0.9-1.1) Diagnostic Findings Postoperative x-rays of the left hip show the prosthesis to be in anatomic alignment without any evidence of fracture, dislocation, or loosening. PG Care Time/CCT Total # of Minutes Spent Total Time Spent with Patient: Total time spent is greater than 50% in coordination of care (as documented) at patient's floor/unit and/or counseling patient: Coding Level of Care Code None Diagnoses Status post left hip replacement Z96.642
[2020-02-26] MEDS ORDERED: dexAMETHasone 4 MG TAB PO SCH (08:00)
--- NOTE | 2020-02-26 08:01 | Ultrasound Report ---
US venous doppler LE LT HISTORY: 74 years-old Female Left calf DVT acute left-sided calf pain COMPARISON: Pelvis and left hip radiographs 02/25/2020 TECHNIQUE: Multiple real-time sonographic images of the left lower extremity deep venous structures w ere obtained assessing grayscale appearance, color and spectral flow FINDINGS: Normal flow, compressibility, phasicity and augmentation of the left lower extremity deep venous stru ctures. IMPRESSION: No sonographic evidence of deep venous thrombosis. ACT 112: Negative or not required by law. The above report was generated using voice recognition software. It may contain grammatical, syntax o r spelling errors. Electronically signed by: Onofre Chavez M.D. 02/26/2020 8:00 AM
[2020-02-26] MEDS: VENLAFAXINE HCL XR 75 MG CAPXR PO SCH (08:38)
[2020-02-26] MEDS: ASPIRIN 81 MG ECTAB PO SCH ×2 (08:38→20:59)
[2020-02-26] MEDS: DOCUSATE SODIUM 100 MG CAP PO SCH ×3 (08:38→19:15)
[2020-02-26] MEDS: MULTIVITAMIN TAB PO SCH (08:38)
[2020-02-26] MEDS: TOLTERODINE TARTRATE 1 MG TAB PO SCH ×2 (08:39→20:59)
[2020-02-26] MEDS: SENNA 8.6 MG TAB PO SCH (19:15)
[2020-02-26] MEDS: clonazePAM 1 MG TAB PO SCH (20:59)
[2020-02-26] MEDS: ATENOLOL 25 MG TABLET PO SCH (20:59)
[2020-02-26] MEDS: NORTRIPTYLINE HCL 25 MG CAP PO SCH (20:59)
[2020-02-26] MEDS: ROPINIROLE HCL 1 MG TABLET PO SCH (20:59)
[2020-02-27] MEDS: KETOROLAC TROMETHAMINE 15 MG/ML VIAL IV SCH ×2 (05:14→11:15)
[2020-02-27] MEDS: ACETAMINOPHEN 500 MG TAB PO SCH ×3 (05:14→22:22)
--- NOTE | 2020-02-27 07:36 | Orthopedic Progress Note ---
Date of Service February 27, 2020 Assessment & Plan (1) Status post left hip replacement: It is encouraging that she was able to ambulate well yesterday with physical therapy, however, she is still having a lot of left hip and groin pain. Her calf pain is better and the ultrasound of her left leg was negative for DVT. I am going to get a quick x-ray of her left hip to make sure everything looks okay. She will be seen again today by physical therapy. She is now requesting possible rehab placement. Case management will work with her and hopefully get her set up with a rehab facility. We will hope to discharge her tomorrow. She is currently on aspirin for DVT prophylaxis. Present on Admission?: Yes Subjective Lurdes was seen and examined at bedside this morning. Unfortunately she is having a lot of pain in her left hip. She was having a lot of calf pain yesterday and the ultrasound was negative. Now she is having pain in her groin. She was able to walk around the nurses station about 3 times yesterday. She was sleeping when I entered the room. She has no other complaints. Physical Exam Musculoskeletal: On physical examination of the left hip, the leg lengths are equal. She has active dorsiflexion and plantarflexion of her left ankle. She has left calf pain that she had yesterday. The Silverlon dressing is mostly clean and dry. Results & Data ([facility]) Vital Signs (Past 12 Hours) Vital Signs Temp Pulse Resp BP Pulse Ox 02/27/20 06:09 36.5 C 64 16 121/83 95 02/26/20 23:20 36.5 C 65 16 116/66 93 02/26/20 20:57 60 170/80 H PG Care Time/CCT Total # of Minutes Spent Total Time Spent with Patient: Total time spent is greater than 50% in coordination of care (as documented) at patient's floor/unit and/or counseling patient: Coding Level of Care Code None Diagnoses Status post left hip replacement Z96.642
[2020-02-27] MEDS: MULTIVITAMIN TAB PO SCH (09:09)
[2020-02-27] MEDS: TOLTERODINE TARTRATE 1 MG TAB PO SCH ×2 (09:09→20:29)
[2020-02-27] MEDS: VENLAFAXINE HCL XR 75 MG CAPXR PO SCH (09:09)
[2020-02-27] MEDS: ASPIRIN 81 MG ECTAB PO SCH ×2 (09:09→20:29)
[2020-02-27] MEDS: DOCUSATE SODIUM 100 MG CAP PO SCH ×2 (09:09→20:29)
[2020-02-27] MEDS: OXYCODONE HCL IR 5 MG TAB (IMMEDIATE RELEASE) PO PRN ×2 (09:13→23:31)
--- NOTE | 2020-02-27 09:34 | XRay Report ---
LEFT HIP 2 VIEWS CLINICAL HISTORY: Postoperative left hip pain. FINDINGS: AP and frog-leg views of the left hip are compared to study dated 02/25/2020. The skeletal s tructures are osteopenic. No acute fracture is seen. A bipolar left hip arthroplasty is in near-anato fareed alignment. No periprosthetic lucency is seen. Sclerotic change is noted in the left sacroiliac renu int. Skin clips and soft tissue edema overly the left hip. IMPRESSION: 1. Expected postoperative findings status post left hip arthroplasty. 2. No acute bony abnormality is identified. Electronically signed by: Alex Swift M.D. 02/27/2020 9:32 AM
[2020-02-27] MEDS: ATENOLOL 25 MG TABLET PO SCH (20:29)
[2020-02-27] MEDS: ROPINIROLE HCL 1 MG TABLET PO SCH (20:29)
[2020-02-27] MEDS: SENNA 8.6 MG TAB PO SCH (20:29)
[2020-02-27] MEDS: NORTRIPTYLINE HCL 25 MG CAP PO SCH (20:29)
[2020-02-27] MEDS: clonazePAM 1 MG TAB PO SCH (20:29)
[2020-02-28] MEDS: ACETAMINOPHEN 500 MG TAB PO SCH ×3 (05:13→22:07)
--- NOTE | 2020-02-28 07:03 | Orthopedic Progress Note ---
Date of Service February 28, 2020 Assessment & Plan (1) Status post left hip replacement: Overall she is doing fairly well. She has been ambulating with physical therapy, unfortunately, she has been having a lot of pain in the left groin. She was hoping to be discharged to a rehab facility. Case management will be working on that today. If she is able to get clearance to go to a rehab facility then she can be discharged later today, otherwise, she may be discharged home if she feels safe. She can follow-up with orthopedics in 2 weeks. Present on Admission?: Yes Subjective Lurdes was seen and examined at bedside this morning. Overall she is doing fairly well. She is been participating well with physical therapy and able to walk around the nurses station. Unfortunately she is still in a lot of pain in her left hip and groin. She is not quite feel safe going home and was hoping to go to a rehab facility. She has no other complaints. Physical Exam Musculoskeletal: On physical examination of the left hip, the Silverlon dressing is clean and dry. Her leg lengths are equal. She has active dorsiflexion plantarflexion of her left ankle. Results & Data ([facility]) Vital Signs (Past 12 Hours) Vital Signs Temp Pulse Resp BP Pulse Ox 02/28/20 06:40 36.5 C 51 L 16 124/65 93 02/27/20 20:28 71 136/82 Diagnostic Findings Follow-up x-ray of the left hip show the prosthesis to be in anatomic alignment without any evidence of fracture, dislocation, or loosening. PG Care Time/CCT Total # of Minutes Spent Total Time Spent with Patient: Total time spent is greater than 50% in coordination of care (as documented) at patient's floor/unit and/or counseling patient: Coding Level of Care Code None Diagnoses Status post left hip replacement Z96.642
--- NOTE | 2020-02-28 07:05 | Discharge Summary ---
Date of Service February 28, 2020 Admission HPI Per Admitting Provider Lurdes is a pleasant 74-year-old female who is been dealing with chronic increasing left hip and groin pain. X-rays, MRI, and physical examination were all diagnostic for advanced osteoarthritis of the left hip. After failing conservative treatment, she has elected to proceed with a left anterior total hip arthroplasty. Principal Diagnosis Left total hip arthroplasty Discharge Data Allergies Allergy/AdvReac Type Severity Reaction Status Date / Time No Known Drug Allergies Allergy Unknown . Verified 02/25/20 12:07 Consultations 02/26/20 08:00 Consult Case Management - Discharge Planning Routine Procedures Performed Operation Date: 02/25/20 13:30 Actual Procedures p Left Anterior Total Hip Arthroplasty(Left) - Reginald Dempsey DO Ordered Studies 02/25/20 13:30 FL fluoroscopy <1hr Routine FL hip LT 1V Routine 02/26/20 07:28 US venous doppler LE LT Urgent Hospital Course (1) Status post left hip replacement: On February 25, 2020 Lurdes arrived at [facility] and underwent a left anterior total hip arthroplasty without complication. She had a general anesthetic. Postoperatively she was started on aspirin for DVT prophylaxis and transferred to the general orthopedic floors. On postop day #1 her H&H was stable and she was complaining of a lot of left calf pain. An ultrasound of her left leg was negative. She was able to ambulate well with physical therapy. On postop day #2 she was complaining of more hip and groin pain. I obtained a x- ray of her left hip and the x-ray was negative. She was able to ambulate fairly well with physical therapy going around the nurses station several times. On postop day #3 she continued to be sore but she was improving. The dressing was clean and dry. She was then discharged. She will follow-up with orthopedics in 2 weeks. Total Time Total Time Spent Total Time Spent (In Minutes): 20 Discharge Plan Discharge Items Patient Disposition: Transfer Inpatient Rehab Fac Reason For Visit: LEFT HIP DEGENERATIVE JOINT DISEASE Discharge Diagnosis: Left hip replacement Activity: As commented below Non-emergency contact: Surgeon Call non-emergency contact if: your wound has increased redness and your wound has increased drainage Follow-up/Referrals: Mimi De La Vega MD [Primary Care Provider] - Diet: Regular Addtl Attending Provider Instructions: Activity and Therapy Recommendations: * If you are using [facility] then therapy will be provided at your home until they feel you have accomplished all of your goals. * If you are using [facility] then Physical Therapy will be provided until they feel you are ready to start Outpatient Physical Therapy. * If you are not using home therapy then Outpatient Physical Therapy should start about 3-5 days from your day of surgery. Therapy will last about 6-10 weeks * You were shown a series of exercises in the hospital. Do these exercises three times each day including the exercises you were shown in physical therapy. * Get up and walk several times each day.~ For the first four weeks, try not to stand or walk for more than one hour at a time. If you do stand or walk for more than one hour, you will not hurt anything, but your leg will likely swell.~~ * As you feel comfortable, you may change from the walker or crutches to a cane and~then to independent walking. Medications: * Oxycodone: I provided a prescription of 5 mg oxycodone. You may add this to the 10 mg oxycodone that you already have. Please only take the 15 mg of oxycodone if you are having rather significant pain. Otherwise, you may take the tramadol.. * Aspirin Most patients will be required to take Aspirin 81mg twice a day for 6 weeks after surgery. This is obtained [id number] and a prescription is not necessary. * Other medications may be prescribed for specific circumstances. If you have any questions, please call the office at . * Resume previous home medications unless otherwise instructed TEDs/Elastic Stockings: The white elastic stockings help limit swelling and prevent blood clots from forming in your legs. The more you wear them, the more they work. Wear them for six weeks. Dressing Care: Leave the Silverlon dressing in place for 7 days. After 7 days you may remove the dressing. If the incision is not draining then you may leave the heather open to air. If there is a little bit of drainage or if the heather are getting stuck on your clothing then cover the incision with a dry dressing. The heather will be removed at your 2 week follow-up appointment. Showering: You may shower with the Silverlon dressing in place. Let the shower spray hit the other shoulder. You can pat the dressing dry. If the dressing becomes wet underneath the plastic then simply remove the dressing. Keep the incision dry until you are 7 days out from the day of surgery. At that time you can shower with the heather exposed. Let the soapy shower water run over the heather and pat them dry. Do not scrub or soak the incision. Things To Watch For: * Drainage from the incision site that occurs more than one week after your surgery. * Increased redness at the incision site. * Fever above 102 degrees Fahrenheit. * Unusual chest pain or shortness of breath. * Call [facility] at with any of the above probl ems Follow-Up Visit: Follow-up with Dr. Dempsey's PA (Reginald Hernandez) 2-3 weeks after your day of surgery. He will remove your heather and answer any questions. If you have any additional questions or concerns, Dr Dempsey is usually in the office at the same time and will be available An appointment was probably scheduled when you signed-up for surgery in the office. If you have any questions call Office Instructions: More detailed instructions as well as Frequently Asked Questions were provided in a folder by our office when you signed-up for surgery. Please review these instructions when you get home. If you have any further questions or concerns, please feel free to call the office at [phone] Pending Studies at Discharge: No Stand-Alone Forms: My [facility] Skilled Items Patient informed of condition?: Yes DNR: No Discharge Level of Care: Acute rehab Communicable Disease: No Discharge Prognosis: Improving Lines: None Urinary Catheter: No Medications and DC Order Prescriptions: New oxycodone 5 mg Tablet 5 mg PO Q8H PRN (Reason: pain) Qty: 60 RF: 0 Continued ipratropium-albuterol 0.5 mg-3 mg(2.5 mg base)/3 mL solution for nebulization 3 ml INHALATION QID PRN (Reason: Wheezing) Qty: 15 RF: 3 Combivent Respimat 20-100 mcg/actuation mist 1 puff INHALATION Q6H PRN (Reason: Wheezing) Qty: 4 RF: 2 ropinirole 2 mg tablet 2 mg PO HS Qty: 90 RF: 1 furosemide 20 mg tablet 20 mg PO DAILY PRN (Reason: Edema) Qty: 30 RF: 5 trazodone 50 mg tablet 50 - 100 mg PO HS Qty: 60 RF: 5 diclofenac potassium 50 mg tablet 50 mg PO BID PRN (Reason: pain) Qty: 60 RF: 2 venlafaxine 75 mg tablet extended release 24hr 75 mg PO QAM Qty: 90 RF: 3 clonazepam 1 mg tablet 1 mg PO HS Qty: 30 RF: 0 (DME) Scooter Misc See Rx Instructions .ROUTE .MEDSUPPLY Qty: 1 RF: 0 miscellaneous medical supply Misc See Rx Instructions MS .COMPLEX Qty: 1 RF: 0 oxycodone 10 mg tablet 10 mg PO TID PRN (Reason: pain) Qty: 90 RF: 0 acetaminophen 500 mg tablet 500 mg PO UD PRN (Reason: Pain) RF: 0 tolterodine [Detrol] 1 mg Tablet 1 mg PO BID RF: 0 atenolol [Tenormin] 25 mg Tablet 25 mg PO HS RF: 0 mometasone 50 mcg/actuation Sharps,Non-Aerosol 2 spray INTRANASAL DAILY PRN (Reason: Nasal Congestion) RF: 0 ergocalciferol (vitamin D2) 50,000 unit Capsule 50,000 unit PO UD RF: 0 nortriptyline 50 mg Capsule 50 mg PO HS RF: 0 melatonin 5 mg Tablet 5 mg PO HS PRN (Reason: Insomnia) RF: 0 loperamide [Imodium A-D] 2 mg Tablet 2 mg PO Q3H PRN (Reason: Diarrhea) RF: 0 tramadol 50 mg tablet 50 mg PO Q6H PRN (Reason: pain) Qty: 20 RF: 0 aspirin 81 mg Tablet,Chewable 81 mg PO BID 42 Days Qty: 84 RF: 0 Discharge Orders: Discharge Order (Routine); Ordered 02/28/20 Ordered By: Reginald Dempsey Admission Data Admit Date/Time: 02/25/20 15:39 Attending Provider: Reginald Dempsey Admit Provider: Reginald Dempsey Primary Care Provider: Mimi De La Vega Other Providers: [facility],Health Coding Level of Care Code D/C Day Management <30 mins Diagnoses Status post left hip replacement Z96.642
--- NOTE | 2020-02-28 08:11 | Anesthesiology Progress Note ---
Date of Service February 28, 2020 Anesthesia Post Procedure Vital Signs Vital Signs: Temp Pulse Resp BP Pulse Ox 02/28/20 06:40 36.5 C 51 L 16 124/65 93 02/27/20 20:28 71 136/82 02/27/20 15:25 36.6 C 53 L 16 131/79 95 Pain Intensity Left Hip: Pain Intensity: 8 Notes Mental Status: alert / awake / arousable and participated in evaluation Patient Amnestic to Procedure: Yes Nausea / Vomiting: adequately controlled Pain: adequately controlled Airway Patency, RR, SpO2: stable & adequate BP & HR: stable & adequate Hydration State: stable & adequate Anesthetic Complications: no major complications apparent and Pt Satisfied with anesthetic care
[2020-02-28] MEDS: ASPIRIN 81 MG ECTAB PO SCH ×2 (08:22→21:08)
[2020-02-28] MEDS: VENLAFAXINE HCL XR 75 MG CAPXR PO SCH (08:23)
[2020-02-28] MEDS: MULTIVITAMIN TAB PO SCH (08:23)
[2020-02-28] MEDS: DOCUSATE SODIUM 100 MG CAP PO SCH ×2 (08:24→21:10)
[2020-02-28] MEDS: TOLTERODINE TARTRATE 1 MG TAB PO SCH ×2 (08:24→21:08)
[2020-02-28] MEDS: OXYCODONE HCL IR 5 MG TAB (IMMEDIATE RELEASE) PO PRN (17:53)
[2020-02-28] MEDS: NORTRIPTYLINE HCL 25 MG CAP PO SCH (21:08)
[2020-02-28] MEDS: clonazePAM 1 MG TAB PO SCH (21:09)
[2020-02-28] MEDS: ATENOLOL 25 MG TABLET PO SCH (21:10)
[2020-02-28] MEDS: SENNA 8.6 MG TAB PO SCH (21:10)
[2020-02-28] MEDS: ROPINIROLE HCL 1 MG TABLET PO SCH (22:07)
[2020-02-29] MEDS: ACETAMINOPHEN 500 MG TAB PO SCH (05:47)
--- NOTE | 2020-02-29 07:00 | Orthopedic Progress Note ---
Date of Service February 29, 2020 Assessment & Plan (1) Status post left hip replacement: Overall she is stable. She is motivated with physical therapy. She is still requiring therapy to get up out of bed and to ambulate. At this point I would recommend a short stay at an acute rehab facility. She lives alone and I think the 3 hours of physical therapy would be beneficial for her safety and her overall recovery. Will hopefully get her discharged to [facility] later today. She is on aspirin for DVT prophylaxis. She will follow-up with orthopedics in 2 weeks. Present on Admission?: Yes Subjective Lurdes was seen and examined at bedside this morning. Overall she is doing fairly well. She still having some soreness in the hip when she gets in and out of bed. She is still requiring physical therapy throughout the day to help her get around. She has no new complaints. Physical Exam Musculoskeletal: On physical examination of the left hip, the Silverlon dressing is clean and dry. Her leg lengths are equal. She has active dorsiflexion plantarflexion of her left ankle. Results & Data ([facility]) Vital Signs (Past 12 Hours) Vital Signs Temp Pulse Resp BP Pulse Ox 02/28/20 23:57 36.6 C 60 16 119/79 92 02/28/20 21:07 53 L 125/77 PG Care Time/CCT Total # of Minutes Spent Total Time Spent with Patient: Total time spent is greater than 50% in coordination of care (as documented) at patient's floor/unit and/or counseling patient: Coding Level of Care Code None Diagnoses Status post left hip replacement Z96.642
[2020-02-29] MEDS: DOCUSATE SODIUM 100 MG CAP PO SCH (09:07)
[2020-02-29] MEDS: TOLTERODINE TARTRATE 1 MG TAB PO SCH (09:07)
[2020-02-29] MEDS: ASPIRIN 81 MG ECTAB PO SCH (09:08)
[2020-02-29] MEDS: VENLAFAXINE HCL XR 75 MG CAPXR PO SCH (09:08)
[2020-02-29] MEDS: MULTIVITAMIN TAB PO SCH (09:08)
[2020-02-29] MEDS: OXYCODONE HCL IR 5 MG TAB (IMMEDIATE RELEASE) PO PRN (09:11)
== END 2020-02-29 12:53 | disposition home health service (06) ==
LOC: 3E 11:20 → ASU 11:20

== ENCOUNTER 2022-04-24 00:08 | Inpatient (IN) ==
[2022-04-24] MEDS ORDERED: MoRPHine SULFATE 4 MG/ML 1 ML CARP\\VIAL IV STA (00:23)
[2022-04-24] MEDS ORDERED: SODIUM CHLORIDE 0.9% 1000ML 500 ML IV ONE (00:23)
[2022-04-24] MEDS ORDERED: ONDANSETRON INJ 2 MG/ML 2 ML VIAL IV STA (00:23)
--- NOTE | 2022-04-24 00:25 | Emergency Department Note ---
Impression & Plan Kidney stone ADMIT ED Provider Note HPI: The patient is a 76-year-old female who presents the emergency department with a chief complaint of left lower quadrant abdominal pain, nausea, and vomiting that has been ongoing since earlier today. Patient states that is been relatively constant and therefore she contacted EMS for transport to the ED tonight. Patient denies any chest pain or shortness of breath, on arrival she is hypertensive but otherwise without fever and saturating well on room air. Patient does complain of a mild headache that she states just started on her way over in the ambulance. Patient denies any diarrhea, states she has been constipated today. ROS: -GI: Left lower quadrant abdominal pain, nausea and vomiting *10 point review systems was conducted and is otherwise negative unless stated above *Outpatient medications and allergy history reviewed PE: General: Alert, NAD HEENT: Normocephalic, atraumatic Eyes: Extraocular eye movement is intact, no scleral erythema Pulmonary: Clear to auscultation bilaterally, no wheezing Cardio: Regular rate and rhythm GI: Abdomen is soft, there is tenderness to palpation to the left side of the abdomen without guarding or rigidity : No suprapubic tenderness MSK: No evidence of trauma or malformation of the extremities, no edema Skin: No evidence of rash Neuro: Alert, no focal deficits Psychiatric: Cooperative monitor and storage bin tender: - An order was placed for continuous cardiac monitoring - Patient was noted to be in sinus rhythm with a rate of 65 EKG: Rate: 67 Rhythm: Normal sinus rhythm Intervals: Within normal limits ST changes: No ST elevation Time: 0051 CT ABDOMEN & PELVIS With Contrast: Sigmoid diverticulosis noted without inflammation Mild left-sided hydronephrosis and hydroureter noted to the level of the pelvis. What may reflect an obstructing distal left ureteral stone measures 6 x 3 mm located just proximal to the UVJ versus a periureteral phlebolith. Further evaluation recommended in the setting of symptoms of left-sided renal colic Left-sided adrenal gland is prominent at 2.6 x 1.8 cm. Definitive evaluation recommended to differentiate between adenoma and 9 adenomatous lesion Radiologist: Mihai Thomas MD Medical Decision Making: Patient presented to the emergency department with a chief complaint of left- sided abdominal pain as well as nausea and vomiting that been worsening throughout the day today. CT imaging of the abdomen pelvis shows evidence of mild left-sided hydronephrosis with possible kidney stone located at the distal left ureter measuring 6 mm in maximum diameter. Urinalysis does not show infection, renal function is intact on lab work. Anemia is at baseline with hemoglobin of 8.2. Patient is hemodynamically stable. On My reassessment patient states she is still having some pain and she is not comfortable with discharge home, she would prefer admission for urology consultation and further care. I did discuss the case therefore with the on-call hospitalist, Dr. Avelar, who accepted the patient for urology consultation and further care, narda redmond was admitted in stable condition. Diagnosis: 1. Left-sided abdominal pain, acute 2. Nausea and vomiting, acute 3. Left-sided kidney stone, with hydronephrosis 4. Chronic anemia Disposition: Admission Phillip Chou DO Emergency Medicine Past Med/Surg History Medical History (Updated 04/24/22 @ 03:31 by Phillip Chou DO) Anemia chronic, baseline hgb in the 10's Asthma controlled Depression Dyslipidemia GERD (gastroesophageal reflux disease) HTN (hypertension) Insomnia Lumbar facet joint syndrome Lumbar pain with radiation down both legs Lumbar spinal stenosis Nocturnal hypoxemia 2 LPM O2 QHS Osteoarthritis Restless leg syndrome Sleep apnea no device, pt states she was retested after weight loss and no longer needs treatment. Wears O2 at night (2L) for nocturnal hypoxemia. Urge incontinence Vertigo "rarely" positional Surgical History History of cholecystectomy History of colonoscopy History of discectomy LUMBAR, 1979 History of fusion of cervical spine GOOD ROM History of gastric bypass 2010 History of repair of rotator cuff Right History of reverse total replacement of left shoulder joint (~07/2019) History of total left knee replacement 09/25/2018 [facility] History of tubal ligation Hx of breast reduction, elective Hx of plastic surgery PANNICULECTOMY Family History Mother Father Denies family history of Colon cancer Ovarian cancer Prostate cancer Myocardial infarction Breast cancer Colorectal cancer Social History Smoking Status: Never smoker Cigarettes Per Day: QUIT 15 YEARS AGO; Second Hand Exposure: No; Hx Alcohol Use: No Hx Substance Use: No Preferred Language: Welsh Communication Ability: Effective Visual Impairment: No Limitations Hearing Ability: Normal Health Record Technician Required: No Beliefs That Will Affect Care: None marital status: marital status details: Three children Current Living Situation: Alone Current Living Situation Comment: lives with daughter current occupational status: retired Feels Safe at Home: Yes Dental Care, Regularly: Yes Physical Activity Frequency: Does not Exercise Physical Activity Frequency Comment: Limited by physical condition Seatbelt Use: always Assistive Devices: Walker Allergies Allergies Allergy/AdvReac Type Severity Reaction Status Date / Time No Known Drug Allergies Allergy Unknown . Verified 04/15/22 14:40 Home Meds Home Medications Medication Instructions Recorded Confirmed tolterodine 1 mg tablet (Detrol) 1 mg PO BID 08/26/18 04/24/22 melatonin 5 mg tablet 10 mg PO HS PRN Insomnia 10/05/20 04/24/22 Previous Rx's Medication Instructions Recorded venlafaxine 75 mg tablet,extended 75 mg PO QAM #90 tabs 12/09/19 release 24 hr clonazepam 1 mg tablet 1 mg PO HS #30 tabs 01/13/20 aspirin 81 mg chewable tablet 81 mg PO BID 42 days #84 tabs 02/28/20 ipratropium 20 mcg-albuterol 100 1 puff inhalation Q6H PRN Wheezing 07/26/20 mcg/actuation mist for inhalation #4 grams (Combivent Respimat) trazodone 150 mg tablet 150 mg PO HS #30 tabs 10/05/20 ropinirole 2 mg tablet 2 mg PO HS #90 tabs 06/11/21 quetiapine 25 mg tablet (Seroquel) 75 mg PO PM #90 tabs 11/06/21 benzonatate 100 mg capsule See Rx Instructions PO TID PRN 12/11/21 cough #30 caps furosemide 20 mg tablet 20 mg PO DAILY PRN Edema #30 tabs 03/08/22 tinidazole 500 mg tablet 2 g PO ONCE #4 tabs 04/02/22 oxycodone 10 mg tablet 10 mg PO TID PRN pain #90 tabs 04/05/22 ferrous sulfate 325 mg (65 mg 325 mg PO BID #60 tabs 04/15/22 iron) tablet Results & Data (ED) Vital Signs Vital Signs - 24 hr 04/24/22 00:21 04/24/22 01:00 04/24/22 02:00 Temperature 37.2 C Temperature Source Oral Pulse Rate 72 80 77 Respiratory Rate 15 23 17 Blood Pressure 183/126 H 162/77 H 152/65 H Blood Pressure Mean 145 105 94 Pulse Oximetry 97 93 96 Oxygen Delivery Method Room Air Room Air Room Air Sepsis Recent Fever Within 48 Hours No Sepsis New/Unexplained Change in Mental Status No Sepsis Action Taken by Nursing No Action Required 04/24/22 02:23 Temperature Temperature Source Pulse Rate 73 Respiratory Rate 16 Blood Pressure 170/82 H Blood Pressure Mean 111 Pulse Oximetry 95 Oxygen Delivery Method Room Air Sepsis Recent Fever Within 48 Hours Sepsis New/Unexplained Change in Mental Status Sepsis Action Taken by Nursing Laboratory Data Result diagrams: 04/24/22 00:45 04/24/22 00:45 Lab Results 04/24/22 04/24/22 04/24/22 Range/Units 00:45 00:45 01:20 WBC 8.15 (4.8-10.8) K/ul RBC 4.12 (3.93-5.22) M/uL Hgb 8.2 L (12.0-16.0) g/dl Hct 28.1 L (34.1-44.9) % MCV 68.2 L (80.0-100.0) fL MCH 19.9 L (25.0-34.0) pg MCHC 29.2 L (32.0-36.0) g/dL RDW Std Deviation 47.3 H (36.4-46.3) fL RDW Coeff of Juan David 19.7 H (11.5-14.5) % Plt Count 387 (130-400) K/uL MPV 10.0 (9.4-12.3) fL Immature Gran % (Auto) 0.2 % Neut % (Auto) 83.3 % Lymph % (Auto) 11.2 % Cole % (Auto) 5.2 % Eos % (Auto) 0.0 % Baso % (Auto) 0.1 % Neut # (Auto) 6.79 H (1.4-6.5) K/uL Lymph # (Auto) 0.91 L (1.2-3.4) K/uL Cole # (Auto) 0.42 (0.24-0.82) K/uL Eos # (Auto) 0.00 (0-0.50) K/uL Baso # (Auto) 0.01 (0-0.2) K/uL Immature Gran # (Auto) 0.02 (0.00-0.02) K/uL Sodium 137 (136-145) mmol/L Potassium 3.4 L (3.5-5.1) mmol/L Chloride 104 (98-107) mmol/L Carbon Dioxide 24 (21-32) mmol/L Anion Gap 9 (3-11) BUN 13 (6-23) mg/dl Creatinine 0.76 (0.6-1.2) mg/dl Est Cr Clr Drug Dosing 81.6 ml/min Est GFR ( Amer) 87.1 ml/min Est GFR (Non-Af Amer) 75.1 ml/min BUN/Creatinine Ratio 17.1 (10-20) Glucose 147 H (70-99(Fasting)) mg/dl Calcium 9.3 (8.5-10.1) mg/dl Total Bilirubin 0.4 (0.2-1.0) mg/dl AST 19 (13-39) U/L ALT 14 (7-52) U/L Alkaline Phosphatase 119 H (34-104) U/L Troponin I High Sens 11.8 (0-14) pg/ml Total Protein 8.0 (6.0-8.3) gm/dl Albumin 4.5 (3.4-5.0) gm/dl Globulin 3.5 (2.5-4.0) gm/dl Albumin/Globulin Ratio 1.3 (0.9-2) Lipase 32 (11-82) U/L Urine Color Yellow Urine Appearance Clear (Clear) Urine pH 6.5 (4.5-7.5) Ur Specific Goodwell 1.005 (1.000-1.030) Urine Protein Negative (Negative) Urine Glucose (UA) Negative (Negative) Urine Ketones Negative (Negative) Urine Blood 1+ H (Negative) Urine Nitrite Negative (Negative) Urine Bilirubin Negative (Negative) Urine Urobilinogen Negative (Negative) Ur Leukocyte Esterase Negative (Negative) Urine WBC (Auto) 1-5 (0-5) /hpf Urine RBC (Auto) 0-4 (0-4) /hpf U Hyaline Cast (Auto) 0 (0-5) /lpf U Epithel Cells (Auto) 5-10 H (0-5) /lpf Urine Bacteria (Auto) Negative (Negative) SARS-CoV-2, RNA, NAAT (NEGATIVE) 04/24/22 Range/Units 02:51 WBC (4.8-10.8) K/ul RBC (3.93-5.22) M/uL Hgb (12.0-16.0) g/dl Hct (34.1-44.9) % MCV (80.0-100.0) fL MCH (25.0-34.0) pg MCHC (32.0-36.0) g/dL RDW Std Deviation (36.4-46.3) fL RDW Coeff of Juan David (11.5-14.5) % Plt Count (130-400) K/uL MPV (9.4-12.3) fL Immature Gran % (Auto) % Neut % (Auto) % Lymph % (Auto) % Cole % (Auto) % Eos % (Auto) % Baso % (Auto) % Neut # (Auto) (1.4-6.5) K/uL Lymph # (Auto) (1.2-3.4) K/uL Cole # (Auto) (0.24-0.82) K/uL Eos # (Auto) (0-0.50) K/uL Baso # (Auto) (0-0.2) K/uL Immature Gran # (Auto) (0.00-0.02) K/uL Sodium (136-145) mmol/L Potassium (3.5-5.1) mmol/L Chloride (98-107) mmol/L Carbon Dioxide (21-32) mmol/L Anion Gap (3-11) BUN (6-23) mg/dl Creatinine (0.6-1.2) mg/dl Est Cr Clr Drug Dosing ml/min Est GFR ( Amer) ml/min Est GFR (Non-Af Amer) ml/min BUN/Creatinine Ratio (10-20) Glucose (70-99(Fasting)) mg/dl Calcium (8.5-10.1) mg/dl Total Bilirubin (0.2-1.0) mg/dl AST (13-39) U/L ALT (7-52) U/L Alkaline Phosphatase (34-104) U/L Troponin I High Sens (0-14) pg/ml Total Protein (6.0-8.3) gm/dl Albumin (3.4-5.0) gm/dl Globulin (2.5-4.0) gm/dl Albumin/Globulin Ratio (0.9-2) Lipase (11-82) U/L Urine Color Urine Appearance (Clear) Urine pH (4.5-7.5) Ur Specific Goodwell (1.000-1.030) Urine Protein (Negative) Urine Glucose (UA) (Negative) Urine Ketones (Negative) Urine Blood (Negative) Urine Nitrite (Negative) Urine Bilirubin (Negative) Urine Urobilinogen (Negative) Ur Leukocyte Esterase (Negative) Urine WBC (Auto) (0-5) /hpf Urine RBC (Auto) (0-4) /hpf U Hyaline Cast (Auto) (0-5) /lpf U Epithel Cells (Auto) (0-5) /lpf Urine Bacteria (Auto) (Negative) SARS-CoV-2, RNA, NAAT NEGATIVE (NEGATIVE) Administered Medications Discontinued Medications Sodium Chloride (Nss 1000ml) 500 mls @ 999 mls/hr IV .Q31M ONE Stop: 04/24/22 00:53 Last Infusion: 04/24/22 01:22 Dose: 0 mls/hr Documented By: Admin: 04/24/22 00:50 Dose: 999 mls/hr Documented By: ISABELL Ioversol (Optiray 300 500ml) 125 ml IV ONCE ONE Stop: 04/24/22 01:51 Last Admin: 04/24/22 01:51 Dose: 103 ml Documented By: FISH Morphine Sulfate (Morphine Sulfate 4 Mg/Ml 1 Ml Carp\\Vial) 4 mg IV NOW STA Stop: 04/24/22 00:24 Last Admin: 04/24/22 00:50 Dose: 4 mg Documented By: ISABELL Ondansetron HCl (Ondansetron Inj 2 Mg/Ml 2 Ml Vial) 4 mg IV NOW STA Stop: 04/24/22 00:24 Last Admin: 04/24/22 00:50 Dose: 4 mg Documented By: ISABELL Discharge Plan Visit Data Chief Complaint: Abdominal Pain Stated Complaint: Ab pain ED Provider: Phillip Chou Discharge Problem: Kidney stone Patient Disposition: Admitted As Inpatient Forms Stand Alone Forms: [facility] Prescriptions Prescriptions: No Action venlafaxine 75 mg tablet extended release 24hr 75 mg PO QAM Qty: 90 3RF clonazepam 1 mg tablet 1 mg PO HS Qty: 30 0RF Label Comments: USES DAILY PRN ANXIETY Rx Instructions: PDMP searched 05/12/19, Last filled 04/09/19, Ok to refill ropinirole 2 mg tablet 2 mg PO HS Qty: 90 3RF quetiapine [Seroquel] 25 mg tablet 75 mg PO PM Qty: 90 5RF furosemide 20 mg tablet 20 mg PO DAILY PRN (Reason: Edema) Qty: 30 5RF oxycodone 10 mg tablet 10 mg PO TID PRN (Reason: pain) Qty: 90 0RF Combivent Respimat 20-100 mcg/actuation mist 1 puff INHALATION Q6H PRN (Reason: Wheezing) Qty: 4 2RF ferrous sulfate 325 mg (65 mg iron) tablet 325 mg PO BID Qty: 60 1RF melatonin 5 mg tablet 10 mg PO HS PRN (Reason: Insomnia) trazodone 150 mg tablet 150 mg PO HS Qty: 30 5RF benzonatate 100 mg capsule See Rx Instructions PO TID PRN (Reason: cough) Qty: 30 1RF Rx Instructions: 1 to 2 capsules PO TID PRN; tolterodine [Detrol] 1 mg Tablet 1 mg PO BID aspirin 81 mg Tablet,Chewable 81 mg PO BID 42 Days Qty: 84 0RF tinidazole 500 mg tablet 2 g PO ONCE Qty: 4 0RF Referrals Referrals: Mimi De La Vega MD [Primary Care Provider] -
[2022-04-24 00:59] LABS: Basophils # (auto) 0.01 K/uL (0-0.2); Basophils % (auto) 0.1 %; Hematocrit (blood only) 28.1 % (34.1-44.9); Hemoglobin 8.2 g/dl (12.0-16.0); Immature Granulocytes # (auto) 0.02 K/uL (0.00-0.02); Immature Granulocytes % (auto) 0.2 %; Lymphocytes # (auto) 0.91 K/uL (1.2-3.4); Lymphocytes % (auto) 11.2 %; Mean Corpuscular Hemoglobin 19.9 pg (25.0-34.0); Mean Corpuscular Hgb Conc 29.2 g/dL (32.0-36.0); Mean Corpuscular Volume 68.2 fL (80.0-100.0); Monocytes # (auto) 0.42 K/uL (0.24-0.82); Monocytes % (auto) 5.2 %; Neutrophils # (auto) 6.79 K/uL (1.4-6.5); Neutrophils % (auto) 83.3 %; RDW Coefficient of Variation 19.7 % (11.5-14.5); RDW Standard Deviation 47.3 fL (36.4-46.3); Red Blood Count 4.12 M/uL (3.93-5.22); White Blood Count 8.15 K/ul (4.8-10.8)
[2022-04-24 01:04] LABS: Platelet Count 387 K/uL (130-400)
[2022-04-24 01:25] LABS: Albumin Globulin Ratio 1.3 (0.9-2); Albumin Level 4.5 gm/dl (3.4-5.0); BUN Creatinine Ratio 17.1 (10-20); Bilirubin,Total 0.4 mg/dl (0.2-1.0); Calcium 9.3 mg/dl (8.5-10.1); Creatinine Clr Calc Pharmacy 81.6 ml/min; Est GFR (African American) 87.1 ml/min; Est GFR (Non-African American) 75.1 ml/min; Globulin 3.5 gm/dl (2.5-4.0); Potassium 3.4 mmol/L (3.5-5.1)
[2022-04-24 01:28] LABS: Troponin I High Sensitivity 11.8 pg/ml (0-14)
[2022-04-24 01:35] LABS: Appearance Urine Clear (Clear); Bacteria Urine Automated Negative (Negative); Bilirubin Urine Negative (Negative); Blood Urine 1+ (Negative); Cast Urine Automated 0 /lpf (0-5); Color Urine Yellow; Glucose Urine UA Negative (Negative); Ketones Urine Negative (Negative); Leukocyte Esterase Urine Negative (Negative); Nitrite Urine Negative (Negative); Protein Urine Negative (Negative); RBC Urine Automated 0-4 /hpf (0-4); Specific Gravity Urine 1.005 (1.000-1.030); Urobilinogen Urine Negative (Negative); pH Urine 6.5 (4.5-7.5)
[2022-04-24] MEDS ORDERED: OPTIRAY 300 500mL IV ONE (01:50)
--- NOTE | 2022-04-24 03:31 | History & Physical Report ---
Date of Service April 24, 2022 Assessment & Plan (1) Kidney stone: Plan: 76-year-old female presenting with 1 day of left lower quadrant abdominal pain, nausea and dry heaving. Found to have a 6 x 3 mm obstructing stone at the left UVJ. UA does not suggest infection. Renal function is intact. Admit to medical Strain urine Morphine as needed for pain, Zofran as needed for nausea Flomax 0.4 mg x 1 now IV fluid with LR at 125 mL/h x 1 L Urology consultation appreciated (2) HTN, goal below 140/90: Plan: Patient presently not on antihypertensives. Blood pressure elevated at 170/82 in setting of pain and physiological stress Continue to monitor (3) Anemia: Plan: Patient with microcytic, hypochromic anemia with Hgb = 8.2 presently and HCT = 28.1. She was recently started on oral iron We will hold while inpatient but patient should continue p.o. iron supplementation on discharge No obvious blood loss Monitor CBC (4) COPD, mild: Plan: Chronic. Stable. No cough, shortness of breath or wheeze Continue Combivent as needed (5) Depression: Plan: Chronic. Stable. Continue trazodone 150 mg p.o. nightly (6) Insomnia: Plan: Chronic. Continue Seroquel 75 mg p.o. every afternoon Continue trazodone 150 mg p.o. nightly Continue clonazepam 1 mg p.o. nightly Continue melatonin nightly F/E/NLR at 125 mL/h x 1 L, electrolytes within normal limits, n.p.o. Ppx:low risk for DVT, SCDs Codefull per discussion with patient Dispositionadmit to medical History of Present Illness Chief Complaint: LLQ pain Primary Care Provider: Mimi De La Vega MD Lurdes Coker is a pleasant 76yo female with history of HTN, HLP, GERD and SHERIN presenting with LLQ pain that started this afternoon. Pain is sharp, intermittent, associated nausea and dry heaving which began the morning of 04/23/22 around 11:30 and continued throughout the day. No history of similar symptoms. Associated chills and subjective fever. Patient denies chest pain, palpitations, cough, SOB. No urinary complaints. No prior history of renal stones. In the ER patient is afebrile, hypertensive, otherwise HD stable, NAD Found to have 6mm stone and left UVJ Allergies Allergy/AdvReac Type Severity Reaction Status Date / Time No Known Drug Allergies Allergy Unknown . Verified 04/15/22 14:40 Home Medications Medication Instructions Recorded Confirmed Type tolterodine 1 mg tablet (Detrol) 1 mg PO BID 08/26/18 04/24/22 History venlafaxine 75 mg tablet,extended 75 mg PO QAM #90 tabs 12/09/19 04/24/22 Rx release 24 hr clonazepam 1 mg tablet 1 mg PO HS #30 tabs 01/13/20 04/24/22 Rx aspirin 81 mg chewable tablet 81 mg PO BID 42 days #84 tabs 02/28/20 04/24/22 Rx ipratropium 20 mcg-albuterol 100 1 puff inhalation Q6H PRN Wheezing 07/26/20 04/24/22 Rx mcg/actuation mist for inhalation #4 grams (Combivent Respimat) melatonin 5 mg tablet 10 mg PO HS PRN Insomnia 10/05/20 04/24/22 History trazodone 150 mg tablet 150 mg PO HS #30 tabs 10/05/20 04/24/22 Rx ropinirole 2 mg tablet 2 mg PO HS #90 tabs 06/11/21 04/24/22 Rx quetiapine 25 mg tablet (Seroquel) 75 mg PO PM #90 tabs 11/06/21 04/24/22 Rx benzonatate 100 mg capsule See Rx Instructions PO TID PRN 12/11/21 04/24/22 Rx cough #30 caps furosemide 20 mg tablet 20 mg PO DAILY PRN Edema #30 tabs 03/08/22 04/24/22 Rx tinidazole 500 mg tablet 2 g PO ONCE #4 tabs 04/02/22 04/24/22 Rx oxycodone 10 mg tablet 10 mg PO TID PRN pain #90 tabs 04/05/22 04/24/22 Rx ferrous sulfate 325 mg (65 mg 325 mg PO BID #60 tabs 04/15/22 04/24/22 Rx iron) tablet Past Med/Surg History Medical History Anemia chronic, baseline hgb in the 10's Asthma controlled Depression Dyslipidemia GERD (gastroesophageal reflux disease) HTN (hypertension) Insomnia Lumbar facet joint syndrome Lumbar pain with radiation down both legs Lumbar spinal stenosis Nocturnal hypoxemia 2 LPM O2 QHS Osteoarthritis Restless leg syndrome Sleep apnea no device, pt states she was retested after weight loss and no longer needs treatment. Wears O2 at night (2L) for nocturnal hypoxemia. Urge incontinence Vertigo "rarely" positional Surgical History History of cholecystectomy History of colonoscopy History of discectomy LUMBAR, 1979 History of fusion of cervical spine GOOD ROM History of gastric bypass 2010 History of repair of rotator cuff Right History of reverse total replacement of left shoulder joint (~07/2019) History of total left knee replacement 09/25/2018 [facility] History of tubal ligation Hx of breast reduction, elective Hx of plastic surgery PANNICULECTOMY Family History Mother Father Denies family history of Colon cancer Ovarian cancer Prostate cancer Myocardial infarction Breast cancer Colorectal cancer Social History Smoking Status: Never smoker Cigarettes Per Day: QUIT 15 YEARS AGO; Second Hand Exposure: No; Hx Alcohol Use: No Hx Substance Use: No Preferred Language: Bulgarian Communication Ability: Effective Visual Impairment: No Limitations Hearing Ability: Normal Conveyor Man Required: No Beliefs That Will Affect Care: None marital status: marital status details: Three children Current Living Situation: Alone Current Living Situation Comment: lives with daughter current occupational status: retired Feels Safe at Home: Yes Dental Care, Regularly: Yes Physical Activity Frequency: Does not Exercise Physical Activity Frequency Comment: Limited by physical condition Seatbelt Use: always Assistive Devices: Walker Review of Systems Review of Systems: All systems reviewed & are unremarkable except as noted in HPI & below Physical Exam Physical Exam: General: patient resting comfortably, NAD, non-toxic in appearance, AA&O x 4 Skin: warm, dry, intact, no rashes or lesions HEENT: NC/AT, PERRL, EOMI, anicteric sclera, conjunctiva without injection, external ear normal to inspection and nontender, nares patent, moist mucus membranes, dentition intact, no oropharyngeal lesions, neck supple, trachea midline, no LAD, no thyromegaly, no JVD Heart: +S1/S2, regular, no m/r/g Lungs: equal air entry bilaterally, no rales/rhonchi/wheezes Abd: +BS, soft, ND, tenderness to palpation in LLQ without rebound/guarding/peritoneal signs, no masses/organomegaly/ascites Ext: warm, 2+ pulses in UE/LE bilaterally, no clubbing/cyanosis or edema Neuro: nonfocal, patient AA&O x 4, speech intact, no facial droop, moving all extremities on command with equal strength 5/5 Results & Data Results & Data ([facility]) Vital Signs (Past 12 Hours) Vital Signs Temp Pulse Resp BP Pulse Ox O2 Del Method 04/24/22 02:23 73 16 170/82 H 95 Room Air 04/24/22 02:00 77 17 152/65 H 96 Room Air 04/24/22 01:00 80 23 162/77 H 93 Room Air 04/24/22 00:21 37.2 C 72 15 183/126 H 97 Room Air Laboratory Results Laboratory Results WBC 8.15 K/ul (4.8-10.8) 04/24/22 00:45 RBC 4.12 M/uL (3.93-5.22) 04/24/22 00:45 Hgb 8.2 g/dl (12.0-16.0) L 04/24/22 00:45 Hct 28.1 % (34.1-44.9) L 04/24/22 00:45 MCV 68.2 fL (80.0-100.0) L 04/24/22 00:45 MCH 19.9 pg (25.0-34.0) L 04/24/22 00:45 MCHC 29.2 g/dL (32.0-36.0) L 04/24/22 00:45 RDW Std Deviation 47.3 fL (36.4-46.3) H 04/24/22 00:45 RDW Coeff of Juan David 19.7 % (11.5-14.5) H 04/24/22 00:45 Plt Count 387 K/uL (130-400) 04/24/22 00:45 MPV 10.0 fL (9.4-12.3) 04/24/22 00:45 Immature Gran % (Auto) 0.2 % 04/24/22 00:45 Neut % (Auto) 83.3 % 04/24/22 00:45 Lymph % (Auto) 11.2 % 04/24/22 00:45 [place] % (Auto) 5.2 % 04/24/22 00:45 Eos % (Auto) 0.0 % 04/24/22 00:45 Baso % (Auto) 0.1 % 04/24/22 00:45 Neut # (Auto) 6.79 K/uL (1.4-6.5) H 04/24/22 00:45 Lymph # (Auto) 0.91 K/uL (1.2-3.4) L 04/24/22 00:45 [place] # (Auto) 0.42 K/uL (0.24-0.82) 04/24/22 00:45 Eos # (Auto) 0.00 K/uL (0-0.50) 04/24/22 00:45 Baso # (Auto) 0.01 K/uL (0-0.2) 04/24/22 00:45 Immature Gran # (Auto) 0.02 K/uL (0.00-0.02) 04/24/22 00:45 Sodium 137 mmol/L (136-145) 04/24/22 00:45 Potassium 3.4 mmol/L (3.5-5.1) L 04/24/22 00:45 Chloride 104 mmol/L (98-107) 04/24/22 00:45 Carbon Dioxide 24 mmol/L (21-32) 04/24/22 00:45 Anion Gap 9 (3-11) 04/24/22 00:45 BUN 13 mg/dl (6-23) 04/24/22 00:45 Creatinine 0.76 mg/dl (0.6-1.2) 04/24/22 00:45 Est Cr Clr Drug Dosing 81.6 ml/min 04/24/22 00:45 Est GFR ( Amer) 87.1 ml/min 04/24/22 00:45 Est GFR (Non-Af Amer) 75.1 ml/min 04/24/22 00:45 BUN/Creatinine Ratio 17.1 (10-20) 04/24/22 00:45 Glucose 147 mg/dl (70-99(Fasting)) H 04/24/22 00:45 Calcium 9.3 mg/dl (8.5-10.1) 04/24/22 00:45 Total Bilirubin 0.4 mg/dl (0.2-1.0) 04/24/22 00:45 AST 19 U/L (13-39) 04/24/22 00:45 ALT 14 U/L (7-52) 04/24/22 00:45 Alkaline Phosphatase 119 U/L (34-104) H 04/24/22 00:45 Troponin I High Sens 11.8 pg/ml (0-14) 04/24/22 00:45 Total Protein 8.0 gm/dl (6.0-8.3) 04/24/22 00:45 Albumin 4.5 gm/dl (3.4-5.0) 04/24/22 00:45 Globulin 3.5 gm/dl (2.5-4.0) 04/24/22 00:45 Albumin/Globulin Ratio 1.3 (0.9-2) 04/24/22 00:45 Lipase 32 U/L (11-82) 04/24/22 00:45 Urine Color Yellow 04/24/22 01:20 Urine Appearance Clear (Clear) 04/24/22 01:20 Urine pH 6.5 (4.5-7.5) 04/24/22 01:20 Ur Specific [place] 1.005 (1.000-1.030) 04/24/22 01:20 Urine Protein Negative (Negative) 04/24/22 01:20 Urine Glucose (UA) Negative (Negative) 04/24/22 01:20 Urine Ketones Negative (Negative) 04/24/22 01:20 Urine Blood 1+ (Negative) H 04/24/22 01:20 Urine Nitrite Negative (Negative) 04/24/22 01:20 Urine Bilirubin Negative (Negative) 04/24/22 01:20 Urine Urobilinogen Negative (Negative) 04/24/22 01:20 Ur Leukocyte Esterase Negative (Negative) 04/24/22 01:20 Urine WBC (Auto) 1-5 /hpf (0-5) 04/24/22 01:20 Urine RBC (Auto) 0-4 /hpf (0-4) 04/24/22 01:20 U Hyaline Cast (Auto) 0 /lpf (0-5) 04/24/22 01:20 U Epithel Cells (Auto) 5-10 /lpf (0-5) H 04/24/22 01:20 Urine Bacteria (Auto) Negative (Negative) 04/24/22 01:20 SARS-CoV-2, RNA, NAAT NEGATIVE (NEGATIVE) 04/24/22 02:[address] abdomen and pelvis with contrast: Per stat readsigmoid diverticulosis noted without inflammation. Mild left-sided hydronephrosis and hydroureter noted to the level of the pelvis. What may reflect an obstructing distal ureteral stone measures 6 x 3 mm located proximal to the UVJ versus a periurethral phlebolith. Further evaluation recommended in the setting of symptoms of left-sided renal colic. Left-sided adrenal gland is prominent at 2.6 x 1.8 cm definitive evaluation recommended differential between adenoma and adenomatous lesion. ECG Additional Comments: EKG with normal sinus rhythm at 67 bpm, normal axis, AR = 162, QRS = 72, QTc = 416, nonspecific ST changes PG Care Time/CCT Total # of Minutes Spent Total Time Spent with Patient: Total time spent is greater than 50% in coordination of care (as documented) at patient's floor/unit and/or counseling patient: Coding Level of Care Code INT OBSERVATION CARE 50M LVL 2 Diagnoses Kidney stone N20.0 HTN, goal below 140/90 I10 Anemia D64.9 COPD, mild J44.9 Depression F32.9 Insomnia G47.00
--- NOTE | 2022-04-24 03:48 | Urology Consultation ---
Date of Consultation April 24, 2022 Assessment & Plan (1) Kidney stone: The patient will be admitted on the hospitalist service. We recommend proceeding as follows: Provide analgesics Provide antiemetics Provide IV fluid for hydration Consideration can be given to initiating Flomax for expulsive therapythis has been ordered by the primary service Recommend keeping the patient n.p.o. for the present time. She will be reevaluated in the morning to determine if cystoscopy is needed. At the present time the patient has no fever, and she has not had any fevers were recorded or documented since arrival to the emergency department. She does not have leukocytosis and her renal function is normal. Her urinalysis is not indicative of infection she is normotensive and is not tachycardic, therefore an emergent urologic procedure is not required Additional plans be forthcoming based on her clinical course as it unfolds History of Present Illness Reason for Consultation: Nephrolithiasis History of Present Illness This is a 76-year-old female who presented to the emergency department secondary to left-sided flank pain. Patient says she was in her usual state of health feeling fine when earlier today in the morning she developed some left-sided flank pain that radiated to her abdomen. She did have associated nausea and vomiting. She did report a fever of 101 when the pain was present but this has since resolved. She denies any shakes or chills. She denies any hematuria, dysuria, or urinary frequency. She notes that she has never had any history of kidney stones in the past. The patient notes that she leads an active lifestyle when she is feeling well. She says that she can negotiate steps and inclines without chest pain or shortness of breath. She notes that she does not consume alcohol and is a non- smoker. In the emergency department the patient had labs and imaging which I obtained and reviewed. A CT scan of the abdomen and pelvis showed the patient had a mild left-sided hydronephrosis secondary to a distal left ureteral stone measuring approximately 6 x 3 mm. In addition the patient was noted to have prominence of the left adrenal gland measuring 2.6 x 1.8 cm. A chest x-ray did not show any evidence of pleural effusions. Labs including CBC were white blood cell count was 8.1. Hemoglobin and hematocrit were 8.2 and 28.1. Platelet count was normal. Sodium, BUN, and creatinine were noted to be normal. Her potassium was slightly low at 3.4. There is no significant elevation of her LFTs other than a slight elevation of the alkaline phosphatase at 119. Urinalysis was not concerning or indicative of infection. A COVID test was negative. At the time of my interview she was resting comfortably in bed and she was in no distress. Allergies Allergy/AdvReac Type Severity Reaction Status Date / Time No Known Drug Allergies Allergy Unknown . Verified 04/15/22 14:40 Home Medications Medication Instructions Recorded Confirmed Type tolterodine 1 mg tablet (Detrol) 1 mg PO BID 08/26/18 04/24/22 History venlafaxine 75 mg tablet,extended 75 mg PO QAM #90 tabs 12/09/19 04/24/22 Rx release 24 hr clonazepam 1 mg tablet 1 mg PO HS #30 tabs 01/13/20 04/24/22 Rx aspirin 81 mg chewable tablet 81 mg PO BID 42 days #84 tabs 02/28/20 04/24/22 Rx ipratropium 20 mcg-albuterol 100 1 puff inhalation Q6H PRN Wheezing 07/26/20 04/24/22 Rx mcg/actuation mist for inhalation #4 grams (Combivent Respimat) melatonin 5 mg tablet 10 mg PO HS PRN Insomnia 10/05/20 04/24/22 History trazodone 150 mg tablet 150 mg PO HS #30 tabs 10/05/20 04/24/22 Rx ropinirole 2 mg tablet 2 mg PO HS #90 tabs 06/11/21 04/24/22 Rx quetiapine 25 mg tablet (Seroquel) 75 mg PO PM #90 tabs 11/06/21 04/24/22 Rx benzonatate 100 mg capsule See Rx Instructions PO TID PRN 12/11/21 04/24/22 Rx cough #30 caps furosemide 20 mg tablet 20 mg PO DAILY PRN Edema #30 tabs 03/08/22 04/24/22 Rx tinidazole 500 mg tablet 2 g PO ONCE #4 tabs 04/02/22 04/24/22 Rx oxycodone 10 mg tablet 10 mg PO TID PRN pain #90 tabs 04/05/22 04/24/22 Rx ferrous sulfate 325 mg (65 mg 325 mg PO BID #60 tabs 04/15/22 04/24/22 Rx iron) tablet Patient History Medical History Anemia chronic, baseline hgb in the 10's Asthma controlled Depression Dyslipidemia GERD (gastroesophageal reflux disease) HTN (hypertension) Insomnia Lumbar facet joint syndrome Lumbar pain with radiation down both legs Lumbar spinal stenosis Nocturnal hypoxemia 2 LPM O2 QHS Osteoarthritis Restless leg syndrome Sleep apnea no device, pt states she was retested after weight loss and no longer needs treatment. Wears O2 at night (2L) for nocturnal hypoxemia. Urge incontinence Vertigo "rarely" positional Surgical History History of cholecystectomy History of colonoscopy History of discectomy LUMBAR, 1979 History of fusion of cervical spine GOOD ROM History of gastric bypass 2010 History of repair of rotator cuff Right History of reverse total replacement of left shoulder joint (~07/2019) History of total left knee replacement 09/25/2018 [facility] History of tubal ligation Hx of breast reduction, elective Hx of plastic surgery PANNICULECTOMY Family History Mother Father Denies family history of Colon cancer Ovarian cancer Prostate cancer Myocardial infarction Breast cancer Colorectal cancer Social History Smoking Status: Never smoker Cigarettes Per Day: QUIT 15 YEARS AGO; Second Hand Exposure: No; Hx Alcohol Use: No Hx Substance Use: No Preferred Language: Tamazight Communication Ability: Effective Visual Impairment: No Limitations Hearing Ability: Normal Disc Pad Plate Filler Required: No Beliefs That Will Affect Care: None marital status: marital status details: Three children Current Living Situation: Alone Current Living Situation Comment: lives with daughter current occupational status: retired Feels Safe at Home: Yes Dental Care, Regularly: Yes Physical Activity Frequency: Does not Exercise Physical Activity Frequency Comment: Limited by physical condition Seatbelt Use: always Assistive Devices: Walker Review of Systems Constitutional: + fever; no chills Eyes: no eye pain Ear, Nose, Mouth, Throat: no ear pain Respiratory: no cough and no dyspnea Cardiovascular: no chest pain Gastrointestinal: + abdominal pain (Radiating from left flank), + nausea and + vomiting Genitourinary: no dysuria and no urinary frequency Musculoskeletal: + back pain (Left flank) Integumentary: no rash Neurologic: no localized weakness Physical Exam Constitutional: WD/WN, vitals as above Eyes: Wears glasses ENMT: Ears: no hearing impairment and no external ear abnormality Mouth: no oropharynx abnormality Neck: trachea midline Respiratory: normal respiratory effort; no respiratory distress Cardiovascular: Rate/Rhythm: regular rate and regular rhythm Vessels: dorsalis pedis pulses present and radial pulses present Gastrointestinal (Abdomen): Abdomen is soft, nondistended, and nonrigid. Patient did have discomfort with palpation in the left lower quadrant. Musculoskeletal: No calf tenderness. Feet are warm and nonmottled Skin: no rashes Neurologic: moves all extremities Psychiatric: A+Ox3, euthymic affect Genitourinary: + CVA tenderness (Left-sided) Results & Data ([facility]) Vital Signs (Past 12 Hours) Vital Signs Temp Pulse Resp BP Pulse Ox O2 Del Method 04/24/22 02:23 73 16 170/82 H 95 Room Air 04/24/22 02:00 77 17 152/65 H 96 Room Air 04/24/22 01:00 80 23 162/77 H 93 Room Air 04/24/22 00:21 37.2 C 72 15 183/126 H 97 Room Air PG Care Time/CCT Total # of Minutes Spent Total Time Spent with Patient: Total time spent is greater than 50% in coordination of care (as documented) at patient's floor/unit and/or counseling patient: Coding Level of Care Code 20016 Inpt Consult Level 5 Diagnoses Kidney stone N20.0
[2022-04-24] MEDS ORDERED: LACTATED RINGER'S 1,000 ML IV SCH (05:14)
[2022-04-24] MEDS ORDERED: MoRPHine SULFATE 2 MG/ML CARP IV PRN (05:14)
[2022-04-24] MEDS ORDERED: POLYETHYLENE (MIRALAX) 17 GM PACK PO PRN (05:14)
[2022-04-24] MEDS ORDERED: IPRATROPIUM BROMIDE/ALBUTEROL respimat INH INH PRN (05:14)
[2022-04-24] MEDS ORDERED: ONDANSETRON INJ 2 MG/ML 2 ML VIAL IV PRN ×2 (05:14→11:51)
[2022-04-24] MEDS ORDERED: ACETAMINOPHEN 325 MG TAB PO PRN (05:14)
[2022-04-24] MEDS ORDERED: MELATONIN 3 MG TAB PO PRN (05:19)
[2022-04-24] MEDS ORDERED: IPRATROPIUM BROMIDE HFA INHALER INH PRN (05:20)
[2022-04-24] MEDS ORDERED: ALBUTEROL HFA 8 GM INHALER INH PRN (05:20)
[2022-04-24] MEDS ORDERED: TAMSULOSIN HCL 0.4 MG CAP PO ONE (05:30)
[2022-04-24 06:56] LABS: Hypochromasia Present; Microcytosis Present
[2022-04-24] MEDS: TOLTERODINE TARTRATE 1 MG TAB PO SCH ×2 (08:08→20:00)
[2022-04-24] MEDS: ASPIRIN 81 MG ECTAB PO SCH ×2 (08:08→20:00)
[2022-04-24] MEDS: VENLAFAXINE HCL XR 75 MG CAPXR PO SCH (08:08)
--- NOTE | 2022-04-24 08:40 | Urology Progress Note ---
Date of Service April 24, 2022 Assessment & Plan (1) Acute left flank pain: (2) Hydronephrosis, left: (3) Left ureteral calculus: Plan 76yo F admitted with intractable left flank pain. CT a/p on admission notable for mild left hydroureteronephrosis, urothelial thickening/enhancement of left ureter, left-sided perinephric stranding. No obstructing stone or lesion was definitively seen, however, there are calcifications in the left pelvis along the course of the distal ureter possible representing the sequela of a recently passed kidney stone, with an obstructing distal left ureteral stone not excluded. -Still with left flank/LLQ pain this morning. -Afebrile and hemodynamically stable. Nontoxic-appearing. -Labs reviewed-no leukocytosis and normal renal function. -Urinalysis without evidence of infection. -Reviewed CT findings in detail with patient. Discussed possible procedure for further evaluation of a possible left distal ureteral stone. We discussed cystoscopy, diagnostic ureteroscopy, possible stent, possible stone treatment depending on findings. Risks and benefits were discussed. She is agreeable to proceeding. -We will plan to proceed with cystoscopy, left retrograde pyelogram, left stent placement, possible ureteroscopy, possible laser lithotripsy/stone treatment depending on findings. -Risks and benefits to be reviewed with patient by Dr. Rizzo. OR notified. Covid negative. Will cover with IV Ancef preoperatively. -Keep NPO. -Urology will follow. Admission and Anticipated Discharge Date Admission Date: April 24, 2022 Supervising Physician Co-Signing Physician Notes I have discussed Ms. Coker's case with DEANGELO Stover and agree with the above documentation. Her story is suspicious for a stone on the left, although the CT scan is somewhat equivocal. We will plan for cystoscopy, ureteroscopy, possible laser lithotripsy and stone removal and left ureteral stent placement. We reviewed the risks and benefits of the surgery and she expressed understanding and agreed to proceed. Subjective Patient examined at bedside this AM. Awake, ambulating in room on arrival. No acute distress. Still with left flank/LLQ abdominal discomfort, managing with IV pain medication. No fevers or chills. No nausea or vomiting. Voiding without issue. Denies hematuria or dysuria. Has been NPO. Denies any noticeable stone passage. Review of Systems Constitutional: as per Subjective / HPI Genitourinary: as per Subjective / HPI Physical Exam Constitutional: no acute distress Respiratory: normal respiratory effort; no respiratory distress Gastrointestinal (Abdomen): Percussion/Palpation: abdomen soft Left flank and LLQ tenderness with palpation Neurologic: awake Psychiatric: Orientation: alert, oriented x 3 and cooperative Results & Data ([facility]) Vital Signs (Past 12 Hours) Vital Signs Temp Pulse Pulse Resp BP BP BP 04/24/22 07:42 36.9 C 87 19 111/69 04/24/22 05:16 37.3 C 76 18 185/91 H 04/24/22 04:30 76 20 148/81 H 04/24/22 02:23 73 16 170/82 H 04/24/22 02:00 77 17 152/65 H 04/24/22 01:00 80 23 162/77 H 04/24/22 00:21 37.2 C 72 15 183/126 H Pulse Ox O2 Del Method 04/24/22 07:42 96 Room Air 04/24/22 05:16 91 Room Air 04/24/22 04:30 96 Room Air 04/24/22 02:23 95 Room Air 04/24/22 02:00 96 Room Air 04/24/22 01:00 93 Room Air 04/24/22 00:21 97 Room Air PG Care Time/CCT Total # of Minutes Spent Total Time Spent with Patient: Total time spent is greater than 50% in coordination of care (as documented) at patient's floor/unit and/or counseling patient: Coding Level of Care Code None Diagnoses Acute left flank pain R10.9 Hydronephrosis, left N13.30 Left ureteral calculus N20.1
--- NOTE | 2022-04-24 09:50 | CT Scan Report ---
CT SCAN OF THE ABDOMEN AND PELVIS WITH IV CONTRAST CLINICAL HISTORY: Left lower quadrant abdominal pain. COMPARISON STUDY: No priors. TECHNIQUE: Following the IV administration of 103 cc of Optiray 300, CT scan of the abdomen and pelv is is performed from the lung bases to the proximal femora. Images are reviewed in the axial, sagitta l, and coronal planes. IV contrast was administered without complication. A dose lowering technique w as utilized adhering to the principles of ALARA. CT DOSE: 313.65 mGy.cm FINDINGS: Lung bases: The heart is enlarged noting trace pericardial effusion. There are coronary artery calcif ications. The lung bases are clear noting bibasilar scarring/atelectasis. Liver: The contrast-enhanced liver is normal in size, contour, and attenuation. There is mild intrahe patic biliary ductal dilatation. The hepatic veins and portal veins are patent. Gallbladder: Surgically absent noting clips in the gallbladder fossa. Spleen: Normal in size and attenuation. There are calcified splenic granulomas. Pancreas: Moderately atrophic and grossly unremarkable. Adrenal glands: A 2.5 cm left adrenal nodule likely represents an adenoma but cannot be definitively characterized due to the presence of IV contrast. The right adrenal gland is normal in appearance. Kidneys: The contrast enhanced kidneys are normal in size. There is mild left hydroureteronephrosis. No obstructing stone or lesion is clearly seen. There is left-sided perinephric stranding. Mild uroth elial thickening and enhancement is noted in the left ureter. No hydronephrosis is seen on the right. The kidneys enhance symmetrically. A 1.5 cm cyst is noted in the right lower pole. Additional subcen timeter cortical hypodensities also likely represent cysts but are too small for definitive character ization. Abdominal vasculature: The abdominal aorta is normal in course and caliber note is advanced atheroscl erotic calcification. Stomach and bowel: There is a small hiatal hernia. Postoperative changes consistent with a history of Gigi-en-Y gastric bypass surgery. No bowel obstruction is seen. Uhua-gq-lklgniht fecal retention is noted throughout the colon. There are scattered colonic diverticula without CT evidence of acute dive rticulitis. The appendix is well-visualized and normal. Peritoneum: There is no intraperitoneal free air or abdominal ascites. There is a fat-containing umbi lical hernia. Lymphadenopathy: None. Pelvic viscera: Evaluation of the pelvis is degraded by streak artifact from a left hip arthroplasty. The bladder, uterus, and adnexa are normal as visualized. Skeletal structures: The skeletal structures are osteopenic. There is moderate lumbosacral spondylosi s. No lytic or blastic lesions are seen. A left hip arthroplasty is in place. IMPRESSION: 1. There is mild left hydroureteronephrosis. Additionally, there is mild urothelial thickening and en hancement of the left ureter as well as left-sided perinephric stranding. No obstructing stone or les ion is definitively seen; however, there are calcifications in the left pelvis along the course of th e distal ureter. This is not well assessed due to streak artifact from a left hip arthroplasty. This could represent the sequela of a recently passed kidney stone, with an obstructing distal left ureter al stone not excluded. This could also potentially be seen with ascending urinary tract infection. Co rrelate with clinical findings and urinalysis. 2. No hydronephrosis is seen on the right. 3. Postoperative change is consistent with previous Gigi-en-Y gastric bypass surgery. There is no bow el obstruction. 4. Cardiomegaly. 5. Additional findings as above. ACT 112: Negative or not required by law. Electronically signed by: Alex Swift M.D. 04/24/2022 9:48 AM
--- NOTE | 2022-04-24 10:55 | XRay Report ---
XR chest 1V portable HISTORY: 76 years-old Female Chest Pain . Acute shortness of breath with chest pain COMPARISON: CT abdomen and pelvis of same day, chest radiograph 02/08/2020 TECHNIQUE: AP view of the chest FINDINGS: Cardiac silhouette is enlarged. No pneumothorax, pleural effusion, airspace consolidation or overt pu lmonary edema. Mild chronic interstitial coarsening. Degenerative changes of the right shoulder and s pine. Reverse left shoulder total joint arthroplasty. Cervical spinal fusion hardware. IMPRESSION: No acute process. ACT 112: Negative or not required by law. The above report was generated using voice recognition software. It may contain grammatical, syntax o r spelling errors. Electronically signed by: Walter Chavez M.D. 04/24/2022 10:53 AM
--- NOTE | 2022-04-24 11:36 | Anesthesiology Consultation ---
Date of Service April 24, 2022 Assessment & Plan Chart Review Chart Review: Acceptable Risk for Surgery, Patient NOT seen in Pre Admission Testing and Acceptable Risk for Labor Epidural Consults Requested none ASA ASA4 Proposed Anesthesia Anesthesia Type: General History Surgery Operation Date: 04/24/22 11:10 Proposed Procedures p Cystoscopy, Left Retrograde Pyelogram, Left Stent Insertion, Possible Ureteroscopy, Laser Lithotripsy Stone Treatment - Med Rizzo MD Height/Weight Height: 4 ft 11 in Weight: 64 kg Allergies Allergy/AdvReac Type Severity Reaction Status Date / Time No Known Drug Allergies Allergy Unknown . Verified 04/15/22 14:40 Medications Home Medications Medication Instructions Recorded Confirmed Last Taken tolterodine 1 mg tablet (Detrol) 1 mg PO BID 08/26/18 04/24/22 02/23/20 venlafaxine 75 mg tablet,extended 75 mg PO QAM #90 tabs 12/09/19 04/24/22 02/23/20 release 24 hr clonazepam 1 mg tablet 1 mg PO HS #30 tabs 01/13/20 04/24/22 02/23/20 aspirin 81 mg chewable tablet 81 mg PO BID 42 days #84 tabs 02/28/20 04/24/22 02/23/20 ipratropium 20 mcg-albuterol 100 1 puff inhalation Q6H PRN Wheezing 07/26/20 04/24/22 Unknown mcg/actuation mist for inhalation #4 grams (Combivent Respimat) melatonin 5 mg tablet 10 mg PO HS PRN Insomnia 10/05/20 04/24/22 Unknown trazodone 150 mg tablet 150 mg PO HS #30 tabs 10/05/20 04/24/22 Unknown ropinirole 2 mg tablet 2 mg PO HS #90 tabs 06/11/21 04/24/22 Unknown quetiapine 25 mg tablet (Seroquel) 75 mg PO PM #90 tabs 11/06/21 04/24/22 Unknown benzonatate 100 mg capsule See Rx Instructions PO TID PRN 12/11/21 04/24/22 Unknown cough #30 caps furosemide 20 mg tablet 20 mg PO DAILY PRN Edema #30 tabs 03/08/22 04/24/22 Unknown tinidazole 500 mg tablet 2 g PO ONCE #4 tabs 04/02/22 04/24/22 Unknown oxycodone 10 mg tablet 10 mg PO TID PRN pain #90 tabs 04/05/22 04/24/22 Unknown ferrous sulfate 325 mg (65 mg 325 mg PO BID #60 tabs 04/15/22 04/24/22 Unknown iron) tablet Active Medications Generic Name Dose Route Start Last Admin Trade Name Freq PRN Reason Stop Dose Admin Aspirin 81 mg 04/24/22 09:00 04/24/22 08:08 Aspirin 81 Mg Ectab PO 05/24/22 08:59 81 mg BID SAMMI Administration Lactated Ringer's 1,000 mls @ 125 mls/hr 04/24/22 05:14 04/24/22 05:39 Lr IV 04/24/22 13:13 125 mls/hr .Q8H SAMMI Administration Morphine Sulfate 2 mg 04/24/22 05:14 04/24/22 05:39 Morphine Sulfate 2 Mg/Ml Carp IV 05/08/22 05:13 2 mg Q4H PRN Administration Pain Tolterodine Tartrate 1 mg 04/24/22 09:00 04/24/22 08:08 Tolterodine Tartrate 1 Mg Tab PO 05/24/22 08:59 1 mg BID SAMMI Administration Venlafaxine HCl 75 mg 04/24/22 09:00 04/24/22 08:08 Venlafaxine Hcl Xr 75 Mg Capxr PO 05/24/22 08:59 75 mg QAM SAMMI Administration NPO Date Last Intake of Fluids: 04/23/22 Time Last Intake of Fluids: 11:30 Last Intake of Fluids Comment: AM medication Date Last Intake of Solids: 04/23/22 Time Last Intake of Solids: 11:30 Past Medical History Medical History Anemia chronic, baseline hgb in the ' Asthma controlled Depression Dyslipidemia GERD (gastroesophageal reflux disease) HTN (hypertension) Insomnia Lumbar facet joint syndrome Lumbar pain with radiation down both legs Lumbar spinal stenosis Nocturnal hypoxemia 2 LPM O2 QHS Osteoarthritis Restless leg syndrome Sleep apnea no device, pt states she was retested after weight loss and no longer needs treatment. Wears O2 at night (2L) for nocturnal hypoxemia. Urge incontinence Vertigo "rarely" positional Exercise / Class Metabolic Activity II 4-5 Yardwork/Stairs/Walk up hill Past Family History Family History Mother Father Denies family history of Colon cancer Ovarian cancer Prostate cancer Myocardial infarction Breast cancer Colorectal cancer Past Surgical History Surgical History History of cholecystectomy History of colonoscopy History of discectomy LUMBAR, 1979 History of fusion of cervical spine GOOD ROM History of gastric bypass 2010 History of repair of rotator cuff Right History of reverse total replacement of left shoulder joint (~07/2019) History of total left knee replacement 09/25/2018 [facility] History of tubal ligation Hx of breast reduction, elective Hx of plastic surgery PANNICULECTOMY Past Anesthesia History No Hx of Anesthesia Complications and No Family Hx of Anesthesia Complications History of PONV No Hx of PONV and No Hx of Motion Sickness Social History Smoking Status: Former smoker tobacco type: cigarettes Smoking cigarettes per day: QUIT 15 YEARS AGO Hx Alcohol Use: No alcohol intake frequency: 0-2 drinks per day Hx Substance Use: No substance use type: does not use Physical Exam Vital Signs Last Vital Signs Temp 37.1 C 04/24/22 10:57 Pulse 95 H 04/24/22 10:57 Resp 18 04/24/22 10:57 BP 137/80 04/24/22 10:57 Pulse Ox 97 04/24/22 10:57 O2 Del Method 04/24/22 10:57 Testing Laboratory Results 04/24/22 00:45 04/24/22 00:45 Urine Color Yellow 04/24/22 01:20 Urine Appearance Clear (Clear) 04/24/22 01:20 Urine pH 6.5 (4.5-7.5) 04/24/22 01:20 Ur Specific [place] 1.005 (1.000-1.030) 04/24/22 01:20 Urine Protein Negative (Negative) 04/24/22 01:20 Urine Glucose (UA) Negative (Negative) 04/24/22 01:20 Urine Ketones Negative (Negative) 04/24/22 01:20 Urine Nitrite Negative (Negative) 04/24/22 01:20 Ur Leukocyte Esterase Negative (Negative) 04/24/22 01:20 Urine WBC (Auto) 1-5 /hpf (0-5) 04/24/22 01:20 Urine RBC (Auto) 0-4 /hpf (0-4) 04/24/22 01:20 U Hyaline Cast (Auto) 0 /lpf (0-5) 04/24/22 01:20 U Epithel Cells (Auto) 5-10 /lpf (0-5) H 04/24/22 01:20 Urine Bacteria (Auto) Negative (Negative) 04/24/22 01:20 Electrocardiogram Date: 04/24/22 Findings: + NSR @ (at 65;LAE) and + NSST changes Chest X-Ray Date: 04/24/22 Findings: + NAD
[2022-04-24] MEDS ORDERED: ePHEDrine sulfate 50 MG/ML AMP IV PRN (11:51)
[2022-04-24] MEDS ORDERED: FLUMAZENIL 0.1 MG/1 ML 10 ML VIAL IV PRN (11:51)
[2022-04-24] MEDS ORDERED: ATROPINE SULFATE 0.1 MG/ML 10ML SYR IV PRN (11:51)
[2022-04-24] MEDS ORDERED: NALOXONE HCL 0.4 MG/1 ML VIAL/CARP IV PRN (11:51)
[2022-04-24] MEDS ORDERED: PROMETHAZINE HCL 12.5 MG in SODIUM CHLORIDE 0.9% 50 ML IV PRN (11:51)
[2022-04-24] MEDS ORDERED: fentaNYL citrate 100 MCG/2 ML VIAL IV PRN (11:51)
[2022-04-24] MEDS: ceFAZolin 2000MG 2,000 MG/15 ML SYR IV ONE ×2 (11:58→12:14)
[2022-04-24] MEDS ORDERED: fentaNYL citrate 100 MCG/2 ML VIAL ONE (12:07)
[2022-04-24] MEDS ORDERED: LIDOCAINE 2% MPF LOCAL 5 ML VIAL INFIL ONE (12:08)
[2022-04-24] MEDS ORDERED: PROPOFOL IV EMULSION 10 MG/ML 20 ML VIAL IV ONE ×2 (12:08→13:02)
--- NOTE | 2022-04-24 12:15 | Electrocardiogram Report ---
Test Reason : Blood Pressure : / mmHG Vent. Rate : 067 BPM Atrial Rate : 067 BPM P-R Int : 162 ms QRS Dur : 072 ms QT Int : 394 ms P-R-T Axes : 069 012 033 degrees QTc Int : 416 ms Normal sinus rhythm Possible Left atrial enlargement Nonspecific ST abnormality Abnormal ECG When compared with ECG of 15-SEP-2020 11:23, Premature atrial complexes are no longer Present Criteria for Septal infarct are no longer Present Confirmed by Raghavendra Finnegan ([id number]) on 04/24/2022 12:15:19 PM Referred By: REFERRED SELF Confirmed By:Raghavendra Finnegan
[2022-04-24] MEDS ORDERED: ONDANSETRON INJ 2 MG/ML 2 ML VIAL ONE (12:29)
--- NOTE | 2022-04-24 13:13 | Operative Report ---
PG Post Operative Report Pre & Post Diagnosis Operation Date: 04/24/22 11:10 Pre-Op Diagnosis: Left Renal Stone Postop diagnosis: Left ureteral stone I identified the patient and participated in the time-out.: Yes Procedure Operation Date: 04/24/22 11:10 Actual Procedures p Cystoscopy, Left Retrograde Pyelogram, Left Stent Insertion, left Ureteroscopy, Laser destruction, Stone extraction(Left) - Med Rizzo MD Surgeon Med Rizzo MD Link Wire Fabric Machine Tender None Estimated Blood Loss 0 Findings See Below Stone visualized in the distal left ureter, fragmented with laser lithotripsy and removed with a wire basket. Left ureteral stent left on strings to facilitate removal of the next 1 to 2 days. Specimens Left ureteral stone Drains 6 [place] by 24 cm double-J ureteral stent in the left ureter, strings left attached. Anesthesia Type General Complications none Disposition Accompanied Patient To Recovery: Yes Disposition: Recovery Room Indications This is a 76-year-old female who presented to the emergency department on 04/24 with left-sided flank pain associated with nausea and vomiting. CT scan was equivocal but suggestive of a stone. She presents to the OR today for ureteroscopy, stent placement and stone treatment if the stone was seen. Description of Procedure The patient was identified in the holding area and informed consent was confirmed. She was marked on the left side, then was taken to the operating room where general anesthesia was initiated. She was placed in the dorsal lithotomy position with all pressure points appropriately padded. He was prepped and draped in the usual sterile fashion and a preoperative timeout was performed. A well-lubricated cystoscope was inserted per urethra and panendoscopy was performed. The urethra was normal with no strictures or mucosal abnormalities. Her bladder appeared grossly normal with no tumors or stones appreciated. Ureteral orifices were in orthotopic position bilaterally 5 [place] open-ended catheter was intubated in the left ureteral orifice and a retrograde pyelogram was performed. There was actually already contrast in the ureter and the kidney from previous contrasted imaging study, suggesting high- grade ureteral obstruction. The ureter was somewhat dilated as was the kidney, but there was no extravasation. A wire was advanced up to the kidney under fluoroscopic guidance. Alongside the wire a semirigid ureteroscope was then inserted. Using a second wire the ureteral orifice was propped open and the ureteroscope was advanced into the distal ureter. Stone was visualized consistent with that seen on CT scan. It was approximately 6 mm in diameter. The 270 m holmium laser fiber was introduced, then using low frequency, medium amplitude settings the stone was dusted and broken into smaller fragments. Once the fragments were satisfactorily small, they were removed with a wire basket. A front office representative sample was sent for stone analysis. Once satisfied that all stone fragments had been removed or were sufficiently small to pass without issue, the ureteroscope was withdrawn, surveying the ureter on the way out. There was no evidence of significant trauma or perforation. The cystoscope was reinserted over the wire, then a 6 [place] x 24 centimeter double-J ureteral stent was advanced. When the wire was removed, the proximal curl was visualized in the kidney with x-ray, and the distal curl visualized in the bladder with the cystoscope. Strings were left attached to the stent to facilitate easy removal. These were secured to the patient's right thigh at the end of the case using Mastisol and Tegaderm. At this point the bladder was drained and all instrumentation was removed. The patient was then awakened from anesthesia and was brought to the PACU in stable condition. I attest to the content of the Intraoperative Record and any orders documented therein. Any exceptions are noted below.
[2022-04-24] MEDS ORDERED: DIATRIZOATE MEGLUMINE 30% 100ML VIAL INSTIL PRN (13:16)
--- NOTE | 2022-04-24 13:55 | Fluoroscopy Report ---
FL retrograde includes kub CLINICAL HISTORY: LT TECHNIQUE: 1 views were obtained with the C-arm in the OR with the above procedure. Total fluoroscopy time was 8 seconds. Total skin dose was 1.49 mGy. Comparison: Comparison is made to CT abdomen pelvis 04/24/2022 FINDINGS/IMPRESSION: Intraoperative images were obtained of left lithotripsy and stent placement. Please correlate with intraoperative fluoroscopy and operative report. ACT 112: Negative or not required by law. Electronically signed by: Mihai Solis M.D. 04/24/2022 1:54 PM
--- NOTE | 2022-04-24 14:28 | Anesthesiology Progress Note ---
Date of Service April 24, 2022 Anesthesia Post Procedure Vital Signs Vital Signs: Temp Pulse Pulse Pulse Resp BP BP 04/24/22 14:10 37.3 C 105 H 17 04/24/22 13:50 109 H 16 04/24/22 13:40 36.7 C 107 H 20 04/24/22 13:30 112 H 17 04/24/22 13:20 117 H 15 04/24/22 13:13 36.3 C L 116 H 20 04/24/22 10:57 37.1 C 95 H 18 137/80 04/24/22 07:42 36.9 C 87 19 111/69 04/24/22 05:16 37.3 C 76 18 04/24/22 04:30 76 20 04/24/22 02:23 73 16 170/82 H 04/24/22 02:00 77 17 152/65 H 04/24/22 01:00 80 23 162/77 H 04/24/22 00:21 37.2 C 72 15 183/126 H BP Pulse Ox O2 Del Method O2 Flow Rate 04/24/22 14:10 139/73 93 Room Air 04/24/22 13:50 125/68 94 Room Air 04/24/22 13:40 154/71 H 99 Room Air 04/24/22 13:30 120/63 98 Room Air 04/24/22 13:20 132/75 100 Oxymask 5 04/24/22 13:13 130/75 100 Oxymask 5 04/24/22 10:57 97 Room Air 04/24/22 07:42 96 Room Air 04/24/22 05:16 185/91 H 91 Room Air 04/24/22 04:30 148/81 H 96 Room Air 04/24/22 02:23 95 Room Air 04/24/22 02:00 96 Room Air 04/24/22 01:00 93 Room Air 04/24/22 00:21 97 Room Air Pain Intensity Left Abdomen: Pain Intensity: 9 Transfer of Care Handoff Completed per policy Notes Mental Status: alert / awake / arousable Patient Amnestic to Procedure: Yes Nausea / Vomiting: adequately controlled Pain: adequately controlled Airway Patency, RR, SpO2: stable & adequate BP & HR: stable & adequate Hydration State: stable & adequate Anesthetic Complications: no major complications apparent
--- NOTE | 2022-04-24 17:18 | Hospitalist Progress Note ---
Date of Service April 24, 2022 Assessment & Plan (1) Kidney stone: Plan: 76-year-old female presenting with 1 day of left lower quadrant abdominal pain, nausea and dry heaving. Found to have a 6 x 3 mm obstructing stone at the left UVJ. UA does not suggest infection. Renal function is intact. Morphine as needed for pain, Zofran as needed for nausea Flomax Urology consultation appreciated -> S/p cystoscopy, left stent, and lithotripsy on 04/24. Likely discharge tomorrow. (2) HTN, goal below 140/90: Plan: Patient presently not on antihypertensives. BP was elevated in setting of pain and physiological stress. Now lower at 140/75. Continue to monitor (3) Anemia: Plan: Patient with microcytic, hypochromic anemia with Hgb = 8.2 presently and HCT = 28.1. She was recently started on oral iron. We will hold while inpatient but patient should continue p.o. iron supplementation on discharge No obvious blood loss Monitor CBC (4) COPD, mild: Plan: Chronic. Stable. No cough, shortness of breath or wheeze Continue Combivent as needed (5) Depression: Plan: Chronic. Stable. Continue trazodone 150 mg p.o. nightly (6) Insomnia: Plan: Chronic. Continue Seroquel 75 mg p.o. every afternoon Continue trazodone 150 mg p.o. nightly Continue clonazepam 1 mg p.o. nightly Continue melatonin nightly Admission and Anticipated Discharge Date Admission Date: April 24, 2022 Subjective Seen after procedure. Doing well overall. No major issues. Pain is well controlled. Reports no fevers/chills, chest pain, shortness of breath, abdominal pain, nausea, or vomiting. Physical Exam Constitutional: WD/WN, vitals as above Eyes: EOM intact bilaterally; no conjunctival abnormality ENMT: external ear and nose normal, oropharynx normal Neck: trachea midline, no thyromegaly normal visual inspection Respiratory: normal respiratory effort, lungs clear to auscultation no respiratory distress Cardiovascular: RRR, no murmur, no edema Gastrointestinal (Abdomen): Inspection/Auscultation: abdomen normal to inspection; abdomen not distended Musculoskeletal: no cyanosis or clubbing, extremities motor strength 5/5 Skin: no rashes, warm and dry Neurologic: moves all extremities and awake Psychiatric: Orientation: alert, oriented to person and cooperative Results & Data Results & Data ([facility]) Vital Signs (Past 12 Hours) Vital Signs Temp Pulse Pulse Resp BP BP Pulse Ox 04/24/22 15:22 36.7 C 116 H 19 139/73 94 04/24/22 14:10 37.3 C 105 H 17 139/73 93 04/24/22 13:50 109 H 16 125/68 94 04/24/22 13:40 36.7 C 107 H 20 154/71 H 99 04/24/22 13:30 112 H 17 120/63 98 04/24/22 13:20 117 H 15 132/75 100 04/24/22 13:13 36.3 C L 116 H 20 130/75 100 04/24/22 10:57 37.1 C 95 H 18 137/80 97 04/24/22 07:42 36.9 C 87 19 111/69 96 04/24/22 05:16 37.3 C 76 18 185/91 H 91 O2 Del Method O2 Flow Rate 04/24/22 15:22 Room Air 04/24/22 14:10 Room Air 04/24/22 13:50 Room Air 04/24/22 13:40 Room Air 04/24/22 13:30 Room Air 04/24/22 13:20 Oxymask 5 04/24/22 13:13 Oxymask 5 04/24/22 10:57 Room Air 04/24/22 07:42 Room Air 04/24/22 05:16 Room Air PG Care Time/CCT Total # of Minutes Spent Total Time Spent with Patient: Total time spent is greater than 50% in coordination of care (as documented) at patient's floor/unit and/or counseling patient: Coding Level of Care Code 12847 Subseq Hosp Care Lvl 2 Diagnoses Kidney stone N20.0 HTN, goal below 140/90 I10 Anemia D64.9 COPD, mild J44.9 Depression F32.9 Insomnia G47.00
[2022-04-24] MEDS: rOPINIRole HCL 2 MG TABLET PO SCH (20:00)
[2022-04-24] MEDS: traZODone HCL 50 MG TAB PO SCH (20:00)
[2022-04-24] MEDS: QUEtiapine FUMARATE 25 MG TABLET PO SCH (20:01)
[2022-04-24] MEDS: clonazePAM 1 MG TAB PO SCH (20:03)
[2022-04-25] MEDS: VENLAFAXINE HCL XR 75 MG CAPXR PO SCH (08:06)
[2022-04-25] MEDS: ASPIRIN 81 MG ECTAB PO SCH ×2 (08:06→21:20)
[2022-04-25] MEDS: TOLTERODINE TARTRATE 1 MG TAB PO SCH ×2 (08:06→21:19)
--- NOTE | 2022-04-25 09:10 | Urology Progress Note ---
Date of Service April 25, 2022 Assessment & Plan (1) Left ureteral calculus: (2) Hydronephrosis, left: (3) Acute left flank pain: Plan -POD #1 s/p Cystoscopy, Left Retrograde Pyelogram, Left Stent Insertion, left Ureteroscopy, Laser destruction, Stone extraction -Tolerating the ureteral stent with minimal bother. -Afebrile, Labs reviewed- no leukocytosis, creatinine normal, hemoglobin 6.7 this morning (patient to receive PRBC transfusion). -Voiding spontaneously, continue to monitor. Bladder scan prn. -Tethered stent intact, will plan for removal at bedside later today or tomorrow pending patient status. -Continue supportive care and close monitoring. -Urology will follow Admission and Anticipated Discharge Date Admission Date: April 24, 2022 Subjective Patient examined at bedside this AM. Awake, resting in bed on arrival. No acute distress. No significant pain. Tethered stent intact. Notes some mild hematuria with urination. No dysuria. Feels she is emptying her bladder. Did note an episode of incontinence overnight. No fevers or chills. No nausea or vomiting. Tolerating diet. Review of Systems Constitutional: as per Subjective / HPI Gastrointestinal: as per Subjective / HPI Genitourinary: as per Subjective / HPI Physical Exam Constitutional: no acute distress Respiratory: normal respiratory effort; no respiratory distress Neurologic: awake Psychiatric: Orientation: alert, oriented x 3 and cooperative Results & Data ([facility]) Vital Signs (Past 12 Hours) Vital Signs Temp Pulse Resp BP Pulse Ox O2 Del Method O2 Flow Rate 04/25/22 08:00 36.7 C 80 18 135/68 96 Nasal Cannula 2 04/24/22 22:59 36.8 C 80 18 105/62 94 Nasal Cannula 2 PG Care Time/CCT Total # of Minutes Spent Total Time Spent with Patient: Total time spent is greater than 50% in coordination of care (as documented) at patient's floor/unit and/or counseling patient: Coding Level of Care Code 91936 Subseq Hosp Care Lvl 2 Diagnoses Left ureteral calculus N20.1 Hydronephrosis, left N13.30 Acute left flank pain R10.9
[2022-04-25 09:16] LABS: Hematocrit (blood only) 23.5 % (34.1-44.9); Hemoglobin 6.7 g/dl (12.0-16.0); Mean Corpuscular Hemoglobin 19.6 pg (25.0-34.0); Mean Corpuscular Hgb Conc 28.5 g/dL (32.0-36.0); Mean Corpuscular Volume 68.9 fL (80.0-100.0); Platelet Count 271 K/uL (130-400); RDW Coefficient of Variation 19.8 % (11.5-14.5); RDW Standard Deviation 48.5 fL (36.4-46.3); Red Blood Count 3.41 M/uL (3.93-5.22); White Blood Count 5.75 K/ul (4.8-10.8)
[2022-04-25] MEDS ORDERED: SODIUM CHLORIDE 0.9% 250 ML IV PRN (09:21)
[2022-04-25 09:29] LABS: BUN Creatinine Ratio 20.9 (10-20); Calcium 8.3 mg/dl (8.5-10.1); Creatinine Clr Calc Pharmacy 56.3 ml/min; Est GFR (African American) 97.6 ml/min; Est GFR (Non-African American) 84.2 ml/min; Potassium 3.3 mmol/L (3.5-5.1)
[2022-04-25] MEDS ORDERED: bisacodyL 10 MG SUPP PR STA (14:34)
[2022-04-25] MEDS ORDERED: POLYETHYLENE (MIRALAX) 17 GM PACK PO PRN (14:34)
--- NOTE | 2022-04-25 15:40 | Hospitalist Progress Note ---
Date of Service April 25, 2022 Assessment & Plan (1) Kidney stone: Plan: 76-year-old female presenting with 1 day of left lower quadrant abdominal pain, nausea and dry heaving. Found to have a 6 x 3 mm obstructing stone at the left UVJ. UA does not suggest infection. Renal function is intact. Morphine as needed for pain, Zofran as needed for nausea Flomax Urology consultation appreciated -> S/p cystoscopy, left stent, and lithotripsy on 04/24. (2) HTN, goal below 140/90: Plan: Patient presently not on antihypertensives. BP was elevated in setting of pain and physiological stress. Now lower at 140/75. Continue to monitor (3) Anemia: Plan: Patient with microcytic, hypochromic anemia, She was recently started on oral iron. -Hb 6.7 today, no evidence of GI bleed -will transfuse 1 unit of blood We will continue p.o. iron supplementation on discharge No obvious blood loss Monitor CBC (4) COPD, mild: Plan: Chronic. Stable. No cough, shortness of breath or wheeze Continue Combivent as needed (5) Depression: Plan: Chronic. Stable. Continue trazodone 150 mg p.o. nightly (6) Insomnia: Plan: Chronic. Continue Seroquel 75 mg p.o. every afternoon Continue trazodone 150 mg p.o. nightly Continue clonazepam 1 mg p.o. nightly Continue melatonin nightly (7) Constipation: Plan: Has not had a BM in 4 days -Dulcolax, Miralax Plan Hopefully d/c tomorrow Admission and Anticipated Discharge Date Admission Date: April 24, 2022 Subjective patient seen and examined today, has not had a BM in 4 days, feels weak and tired Review of Systems Review of Systems: All systems reviewed are negative, apart from the ones contained in the history. Physical Exam Physical Exam: The patient is awake, alert and oriented 3, well developed and well nourished, normocephalic and atraumatic, lying in bed and in no acute distress. HEENT--PERRL, EOMI, mucous membranes and oropharynx mildly dry Neck--supple. No JVD. No bruits. Thyroid normal, trachea midline, no adenopathy. Heart--normal S1 and S2. No murmurs, rubs or gallops. Lungs--clear bilaterally, no respiratory distress, no accessory muscle use. Abdomen--normal bowel sounds and soft. Mild epigastric and left sided abdominal pain Extremities--no cyanosis or clubbing. No edema. Dermatologic--normal skin turgor, normal color, no abnormal lymph nodes, no rash. Neurologic--cranial nerves II through XII grossly intact. Rheumatologic--normal range of motion. Psychiatric--normal affect. Results & Data Results & Data ([facility]) Vital Signs (Past 12 Hours) Vital Signs Temp Pulse Pulse Resp BP BP Pulse Ox 04/25/22 14:41 98.1 F 76 16 157/80 H 94 04/25/22 13:18 98.1 F 72 14 120/80 94 04/25/22 12:45 98.2 F 84 16 128/56 L 93 04/25/22 12:15 98.6 F 96 H 16 123/63 94 04/25/22 11:45 98.2 F 80 16 132/83 93 04/25/22 11:30 98.1 F 73 16 131/75 90 04/25/22 11:15 98.1 F 62 16 125/75 04/25/22 08:00 98.1 F 80 18 135/68 96 O2 Del Method O2 Flow Rate 04/25/22 14:41 04/25/22 13:18 04/25/22 12:45 04/25/22 12:15 04/25/22 11:45 04/25/22 11:30 04/25/22 11:15 04/25/22 08:00 Nasal Cannula 2 PG Care Time/CCT Total # of Minutes Spent Total Time Spent with Patient: Total time spent is greater than 50% in coordination of care (as documented) at patient's floor/unit and/or counseling patient: Coding Level of Care Code 07834 Subseq Hosp Care Lvl 2 Diagnoses Kidney stone N20.0 HTN, goal below 140/90 I10 Anemia D64.9 COPD, mild J44.9 Depression F32.9 Insomnia G47.00 Constipation K59.00 Time Spent (min) 35
[2022-04-25] MEDS: rOPINIRole HCL 2 MG TABLET PO SCH (21:18)
[2022-04-25] MEDS: DOCUSATE SODIUM 100 MG CAP PO PRN (21:18)
[2022-04-25] MEDS: clonazePAM 1 MG TAB PO SCH (21:18)
[2022-04-25] MEDS: traZODone HCL 50 MG TAB PO SCH (21:19)
[2022-04-25] MEDS: QUEtiapine FUMARATE 25 MG TABLET PO SCH (21:19)
[2022-04-26 05:56] LABS: Hematocrit (blood only) 25.7 % (34.1-44.9); Hemoglobin 7.9 g/dl (12.0-16.0); Mean Corpuscular Hemoglobin 21.9 pg (25.0-34.0); Mean Corpuscular Hgb Conc 30.7 g/dL (32.0-36.0); Mean Corpuscular Volume 71.2 fL (80.0-100.0); Mean Platelet Volume 10.6 fL (9.4-12.3); Platelet Count 286 K/uL (130-400); RDW Coefficient of Variation 20.3 % (11.5-14.5); RDW Standard Deviation 52.2 fL (36.4-46.3); Red Blood Count 3.61 M/uL (3.93-5.22); White Blood Count 4.55 K/ul (4.8-10.8)
[2022-04-26] MEDS: DOCUSATE SODIUM 100 MG CAP PO PRN (07:56)
[2022-04-26] MEDS: ASPIRIN 81 MG ECTAB PO SCH ×2 (07:56→19:45)
[2022-04-26] MEDS: VENLAFAXINE HCL XR 75 MG CAPXR PO SCH (07:56)
[2022-04-26] MEDS: TOLTERODINE TARTRATE 1 MG TAB PO SCH ×2 (07:57→19:45)
--- NOTE | 2022-04-26 09:38 | Urology Progress Note ---
Date of Service April 26, 2022 Assessment & Plan (1) Left ureteral calculus: (2) Hydronephrosis, left: Plan -POD #2 s/p Cystoscopy, Left Retrograde Pyelogram, Left Stent Insertion, left Ureteroscopy, Laser destruction, Stone extraction. -Tethered stent removed at bedside yesterday (04/25) without difficulty. -Doing ok this morning, still has not moved her bowels. -Remains afebrile and hemodynamically stable. -Labs reviewed - Wbc 4.55, Hemoglobin 7.9 (received 1U PRBC yesterday). -Reports some difficulty with urination, but has voided this morning. Continue to monitor. Bladder scan after next void and prn. -Continue supportive care and efforts to normalize bowels. -Will arrange outpatient follow-up with our service. -Urology will sign-off. Please contact us with any further questions, concerns, or changes in patient status. Admission and Anticipated Discharge Date Admission Date: April 24, 2022 Supervising Physician Co-Signing Physician Notes I have discussed Ms. Coker's case with DEANGELO Stover and agree with the above documentation. Ureteral stent has been removed. She is voiding reasonably well. I suspect many of her symptoms are related to constipation and hopefully as this improves she will return to normal. We will arrange outpatient follow-up. Please call with any questions or concerns. Subjective Patient examined at bedside this AM. Awake, resting in bed on arrival. Still feels tired. No BM in several days. Notes some difficulty with urination yesterday, but states she just voided about 400 mL this morning. Some mild hematuria, no dysuria. Reports some mild left back pain this morning. No fevers or chills. No nausea or vomiting. Tolerating diet. Review of Systems Constitutional: as per Subjective / HPI Gastrointestinal: as per Subjective / HPI Genitourinary: as per Subjective / HPI Physical Exam Constitutional: no acute distress Respiratory: no respiratory distress and no labored breathing Skin: Warm and dry Neurologic: awake Psychiatric: A+Ox3, euthymic affect Results & Data ([facility]) Vital Signs (Past 12 Hours) Vital Signs Temp Pulse Resp BP Pulse Ox O2 Del Method O2 Flow Rate 04/26/22 07:49 36.6 C 71 16 132/84 96 Nasal Cannula 2 04/26/22 01:18 Nasal Cannula 2 04/25/22 23:45 36.6 C 66 16 106/67 96 Nasal Cannula 2 PG Care Time/CCT Total # of Minutes Spent Total Time Spent with Patient: Total time spent is greater than 50% in coordination of care (as documented) at patient's floor/unit and/or counseling patient: Coding Level of Care Code 56815 Subseq Hosp Care Lvl 2 Diagnoses Left ureteral calculus N20.1 Hydronephrosis, left N13.30
[2022-04-26] MEDS ORDERED: LAVAGE SOLUTION 4000ML PO SCH (11:00)
--- NOTE | 2022-04-26 13:46 | Hospitalist Progress Note ---
Date of Service April 26, 2022 Assessment & Plan (1) Kidney stone: Plan: 76-year-old female presenting with 1 day of left lower quadrant abdominal pain, nausea and dry heaving. Found to have a 6 x 3 mm obstructing stone at the left UVJ. UA does not suggest infection. Renal function is intact. Morphine as needed for pain, Zofran as needed for nausea Flomax Urology consultation appreciated -> S/p cystoscopy, left stent, and lithotripsy on 04/24. -Tethered stent was removed at bedside on 04/25 -Stable per Urology -For outpatient follow up with urology (2) HTN, goal below 140/90: Plan: Patient presently not on antihypertensives. BP was elevated in setting of pain and physiological stress. Now lower at 140/75. Continue to monitor (3) Anemia: Plan: Patient with microcytic, hypochromic anemia, She was recently started on oral iron. -Hb7.9 today post 1 unit of blood We will continue p.o. iron supplementation on discharge No obvious blood loss Monitor CBC (4) COPD, mild: Plan: Chronic. Stable. No cough, shortness of breath or wheeze Continue Combivent as needed (5) Depression: Plan: Chronic. Stable. Continue trazodone 150 mg p.o. nightly (6) Insomnia: Plan: Chronic. Continue Seroquel 75 mg p.o. every afternoon Continue trazodone 150 mg p.o. nightly Continue clonazepam 1 mg p.o. nightly Continue melatonin nightly (7) Constipation: Plan: Has not had a BM in 4 days -Dulcolax, Miralax, did not work will give her golytely Plan Hopefully d/c tomorrow Admission and Anticipated Discharge Date Admission Date: April 24, 2022 Subjective patient seen and examined, has not had a BM, but feels overall better Review of Systems Review of Systems: All systems reviewed are negative, apart from the ones contained in the history. Physical Exam Physical Exam: The patient is awake, alert and oriented 3, well developed and well nourished, normocephalic and atraumatic, lying in bed and in no acute distress. HEENT--PERRL, EOMI, mucous membranes and oropharynx mildly dry Neck--supple. No JVD. No bruits. Thyroid normal, trachea midline, no adenopathy . Heart--normal S1 and S2. No murmurs, rubs or gallops. Lungs--clear bilaterally, no respiratory distress, no accessory muscle use. Abdomen--normal bowel sounds and soft. Mild epigastric and left sided abdominal pain Extremities--no cyanosis or clubbing. No edema. Dermatologic--normal skin turgor, normal color, no abnormal lymph nodes, no rash. Neurologic--cranial nerves II through XII grossly intact. Rheumatologic--normal range of motion. Psychiatric--normal affect. Results & Data Results & Data ([facility]) Vital Signs (Past 12 Hours) Vital Signs Temp Pulse Resp BP Pulse Ox O2 Del Method O2 Flow Rate 04/26/22 07:49 97.9 F 71 16 132/84 96 Nasal Cannula 2 PG Care Time/CCT Total # of Minutes Spent Total Time Spent with Patient: Total time spent is greater than 50% in coordination of care (as documented) at patient's floor/unit and/or counseling patient: Coding Level of Care Code 29962 Subseq Hosp Care Lvl 2 Diagnoses Kidney stone N20.0 HTN, goal below 140/90 I10 Anemia D64.9 COPD, mild J44.9 Depression F32.9 Insomnia G47.00 Constipation K59.00 Time Spent (min) 35
[2022-04-26] MEDS: QUEtiapine FUMARATE 25 MG TABLET PO SCH (19:43)
[2022-04-26] MEDS: traZODone HCL 50 MG TAB PO SCH (19:44)
[2022-04-26] MEDS: rOPINIRole HCL 2 MG TABLET PO SCH (19:45)
[2022-04-26] MEDS: clonazePAM 1 MG TAB PO SCH (19:49)
[2022-04-27] MEDS: TOLTERODINE TARTRATE 1 MG TAB PO SCH ×2 (09:06→20:00)
[2022-04-27] MEDS: ASPIRIN 81 MG ECTAB PO SCH ×2 (09:06→20:00)
[2022-04-27] MEDS: VENLAFAXINE HCL XR 75 MG CAPXR PO SCH (09:06)
[2022-04-27] MEDS: DOCUSATE SODIUM 100 MG CAP PO PRN ×2 (09:12→20:00)
[2022-04-27] MEDS ORDERED: MINERAL OIL ENEMA 133 ML BTL PR ONE (13:39)
--- NOTE | 2022-04-27 14:04 | Hospitalist Progress Note ---
Date of Service April 27, 2022 Assessment & Plan (1) Kidney stone: Plan: 76-year-old female presenting with 1 day of left lower quadrant abdominal pain, nausea and dry heaving. Found to have a 6 x 3 mm obstructing stone at the left UVJ. UA does not suggest infection. Renal function is intact. Morphine as needed for pain, Zofran as needed for nausea Flomax Urology consultation appreciated -> S/p cystoscopy, left stent, and lithotripsy on 04/24. -Tethered stent was removed at bedside on 04/25 -Stable per Urology -For outpatient follow up with urology (2) HTN, goal below 140/90: Plan: Patient presently not on antihypertensives. BP was elevated in setting of pain and physiological stress. Now lower at 140/75. Continue to monitor (3) Anemia: Plan: Patient with microcytic, hypochromic anemia, She was recently started on oral iron. -Last Hb7.9, post 1 unit of blood We will continue p.o. iron supplementation on discharge No obvious blood loss Monitor CBC (4) COPD, mild: Plan: Chronic. Stable. No cough, shortness of breath or wheeze Continue Combivent as needed (5) Depression: Plan: Chronic. Stable. Continue trazodone 150 mg p.o. nightly (6) Insomnia: Plan: Chronic. Continue Seroquel 75 mg p.o. every afternoon Continue trazodone 150 mg p.o. nightly Continue clonazepam 1 mg p.o. nightly Continue melatonin nightly (7) Constipation: Plan: Has not had a BM in 6 days -Dulcolax, Miralax, TWE did not work -golytely made her nauseous -will try mineral oil enema Plan Hopefully d/c tomorrow Admission and Anticipated Discharge Date Admission Date: April 24, 2022 Subjective patient seen and examined, has not had a good BM, but feels overall better Review of Systems Review of Systems: All systems reviewed are negative, apart from the ones contained in the history. Physical Exam Physical Exam: The patient is awake, alert and oriented 3, well developed and well nourished, normocephalic and atraumatic, lying in bed and in no acute distress. HEENT--PERRL, EOMI, mucous membranes and oropharynx mildly dry Neck--supple. No JVD. No bruits. Thyroid normal, trachea midline, no adenopathy. Heart--normal S1 and S2. No murmurs, rubs or gallops. Lungs--clear bilaterally, no respiratory distress, no accessory muscle use. Abdomen--normal bowel sounds and soft. Mild epigastric and left sided abdominal pain Extremities--no cyanosis or clubbing. No edema. Dermatologic--normal skin turgor, normal color, no abnormal lymph nodes, no rash. Neurologic--cranial nerves II through XII grossly intact. Rheumatologic--normal range of motion. Psychiatric--normal affect. Results & Data Results & Data ([facility]) Vital Signs (Past 12 Hours) Vital Signs Temp Pulse Resp BP BP Pulse Ox O2 Del Method 04/27/22 12:09 97.5 F L 72 19 121/78 95 Room Air 04/27/22 07:28 97.9 F 65 20 151/82 H 97 Nasal Cannula O2 Flow Rate 04/27/22 12:09 04/27/22 07:28 1.5 PG Care Time/CCT Total # of Minutes Spent Total Time Spent with Patient: Total time spent is greater than 50% in coordination of care (as documented) at patient's floor/unit and/or counseling patient: Coding Level of Care Code 43989 Subseq Hosp Care Lvl 2 Diagnoses Kidney stone N20.0 HTN, goal below 140/90 I10 Anemia D64.9 COPD, mild J44.9 Depression F32.9 Insomnia G47.00 Constipation K59.00 Time Spent (min) 35
--- NOTE | 2022-04-27 17:30 | CT Scan Report ---
ABDOMEN AND PELVIS CT WITHOUT CONTRAST CT DOSE: 287.50 mGy.cm HISTORY: Acute generalized abdominal pain with constipation status post lithotripsy constipation TECHNIQUE: Multiaxial CT images of the abdomen and pelvis were performed without contrast. A dose lo wering technique was utilized adhering to the principles of ALARA. COMPARISON STUDY: CT abdomen and pelvis 04/24/2022 FINDINGS: Moderate cardiomegaly with trace pericardial effusion. Trace pleural effusions with dependent bibasil ar opacities suggestive of atelectasis. No pneumatosis or pneumoperitoneum. The unenhanced spleen is unremarkable with scattered calcifications. Unremarkable pancreas and right adrenal gland. Unchanged 2.5 cm left adrenal adenoma. Cholecystectomy. Unremarkable liver. 3 mm nonobstructing calculus of the inferior pole right kidney. Unchanged 1.5 cm cyst within the infe rior pole right kidney. 2 mm nonobstructing calculus of the left kidney. There are a few small cysts of the left kidney redemonstrated measuring less than 2 cm. Mild left-sided hydroureteronephrosis wit h urothelial thickening redemonstrated. No definite ureteral calculus identified. Pelvic basin phlebo liths are redemonstrated. Limited evaluation of the pelvic structures secondary to artifact from left hip total joint arthroplasty. Decompressed urinary bladder. Unremarkable uterus and adnexa. Atherosc lerosis of the aorta without aneurysm. There is no lymphadenopathy. Prior Gigi-en-Y gastric bypass. No bowel obstruction or bowel wall thickening. Moderate colonic fecal retention. Noninflamed appendix. There are a few stool-filled loops of small bowel within the lower abdomen. Unremarkable soft tissues. No acute fracture. IMPRESSION: 1. Mild left-sided hydroureteronephrosis redemonstrated without obstructing ureteral calculus or lesi on identified. Note that the distal left ureter is suboptimally visualized secondary to artifact from the left hip total joint arthroplasty. Urothelial thickening is better appreciated on the comparison study. Findings should be correlated with urinalysis to exclude infection. 2. Nonobstructing bilateral nephrolithiasis. 3. No bowel obstruction or bowel wall thickening. 4. Moderate fecal retention. 5. Additional findings as above. ACT 112: Negative or not required by law. The above report was generated using voice recognition software. It may contain grammatical, syntax o r spelling errors. Electronically signed by: Walter Chavez M.D. 04/27/2022 5:27 PM
[2022-04-27] MEDS: clonazePAM 1 MG TAB PO SCH (19:59)
[2022-04-27] MEDS: QUEtiapine FUMARATE 25 MG TABLET PO SCH (20:00)
[2022-04-27] MEDS: traZODone HCL 50 MG TAB PO SCH (20:01)
[2022-04-27] MEDS: rOPINIRole HCL 2 MG TABLET PO SCH (20:01)
[2022-04-28] MEDS: TOLTERODINE TARTRATE 1 MG TAB PO SCH (08:31)
[2022-04-28] MEDS: VENLAFAXINE HCL XR 75 MG CAPXR PO SCH (08:32)
[2022-04-28] MEDS: ASPIRIN 81 MG ECTAB PO SCH (08:32)
--- NOTE | 2022-04-28 14:08 | Discharge Summary ---
Date of Service April 28, 2022 Admission HPI Per Admitting Provider Lurdes Coker is a pleasant 76yo female with history of HTN, HLP, GERD and SHERIN presenting with LLQ pain that started this afternoon. Pain is sharp, intermittent, associated nausea and dry heaving which began the morning of 04/23/22 around 11:30 and continued throughout the day. No history of similar symptoms. Associated chills and subjective fever. Patient denies chest pain, palpitations, cough, SOB. No urinary complaints. No prior history of renal stones. In the ER patient is afebrile, hypertensive, otherwise HD stable, NAD Found to have 6mm stone and left UVJ Principal Diagnosis kidney stone Discharge Exam The patient is awake, alert and oriented 3, well developed and well nourished, normocephalic and atraumatic, lying in bed and in no acute distress. HEENT--PERRL, EOMI, mucous membranes and oropharynx mildly dry Neck--supple. No JVD. No bruits. Thyroid normal, trachea midline, no john opathy. Heart--normal S1 and S2. No murmurs, rubs or gallops. Lungs--clear bilaterally, no respiratory distress, no accessory muscle use. Abdomen--normal bowel sounds and soft. Mild epigastric and left sided abdominal pain Extremities--no cyanosis or clubbing. No edema. Dermatologic--normal skin turgor, normal color, no abnormal lymph nodes, no rash. Neurologic--cranial nerves II through XII grossly intact. Rheumatologic--normal range of motion. Psychiatric--normal affect. Discharge Data Allergies Allergy/AdvReac Type Severity Reaction Status Date / Time No Known Drug Allergies Allergy Unknown . Verified 04/15/22 14:40 Consultations 04/24/22 03:16 ED Decision to Admit Stat 04/24/22 03:20 Consult Urology Routine 04/24/22 05:14 Consult Urology Routine Procedures Performed Operation Date: 04/24/22 11:10 Actual Procedures p Left Retrograde Pyelogram, left Ureteroscopy, Laser destruction, Stone extraction(Left) - Med Rizzo MD s Cystoscopy - Med Rizzo MD s Left Stent Insertion, (Left) - Med Rizzo MD Ordered Studies 04/24/22 00:23 CT abd pelvis IV con only Urgent 04/24/22 11:30 FL retrograde includes kub Routine 04/27/22 15:25 CT abd pelvis wo con Routine Hospital Course (1) Kidney stone: 76-year-old female presenting with 1 day of left lower quadrant abdominal pain, nausea and dry heaving. Found to have a 6 x 3 mm obstructing stone at the left UVJ. UA does not suggest infection. Renal function is intact. Morphine as needed for pain, Zofran as needed for nausea Flomax Urology consultation appreciated -> S/p cystoscopy, left stent, and lithotripsy on 04/24. -Tethered stent was removed at bedside on 04/25 -Stable per Urology -For outpatient follow up with urology (2) HTN, goal below 140/90: Patient presently not on antihypertensives. BP was elevated in setting of pain and physiological stress. Now lower at 140/75. Continue to monitor (3) Anemia: Patient with microcytic, hypochromic anemia, She was recently started on oral iron. -Last Hb7.9, post 1 unit of blood We will continue p.o. iron supplementation on discharge No obvious blood loss Monitor CBC (4) COPD, mild: Chronic. Stable. No cough, shortness of breath or wheeze Continue Combivent as needed (5) Depression: Chronic. Stable. Continue trazodone 150 mg p.o. nightly (6) Insomnia: Chronic. Continue Seroquel 75 mg p.o. every afternoon Continue trazodone 150 mg p.o. nightly Continue clonazepam 1 mg p.o. nightly Continue melatonin nightly (7) Constipation: has small bowel movement will d/c on miralax Plan Hopefully d/c tomorrow Total Time Total Time Spent Total Time Spent (In Minutes): 35 Discharge Plan Discharge Items Patient Disposition: Home - Self-Care Reason For Visit: RENAL STONE Discharge Diagnosis: Renal stone, constipation Activity: Resume your previous activity Non-emergency contact: Primary Care Provider and Urologist Call non-emergency contact if: you have any medication questions Follow-up/Referrals: Mimi De La Vega MD [Primary Care Provider] - 05/08/22 12:00 pm Diet: Regular Addtl Attending Provider Instructions: please make appointment to follow up with your Urologist Pending Studies at Discharge: No Stand-Alone Forms: My [address], Smoking Cessation Medications and DC Order Prescriptions: New polyethylene glycol 3350 [Miralax] 17 gram Powder In Packet 17 g PO DAILY PRN (Reason: constipation) 5 Days Qty: 5 0RF Continued venlafaxine 75 mg tablet extended release 24hr 75 mg PO QAM Qty: 90 3RF clonazepam 1 mg tablet 1 mg PO HS Qty: 30 0RF Label Comments: USES DAILY PRN ANXIETY Rx Instructions: PDMP searched 05/12/19, Last filled 04/09/19, Ok to refill ropinirole 2 mg tablet 2 mg PO HS Qty: 90 3RF quetiapine [Seroquel] 25 mg tablet 75 mg PO PM Qty: 90 5RF furosemide 20 mg tablet 20 mg PO DAILY PRN (Reason: Edema) Qty: 30 5RF oxycodone 10 mg tablet 10 mg PO TID PRN (Reason: pain) Qty: 90 0RF Combivent Respimat 20-100 mcg/actuation mist 1 puff INHALATION Q6H PRN (Reason: Wheezing) Qty: 4 2RF ferrous sulfate 325 mg (65 mg iron) tablet 325 mg PO BID Qty: 60 1RF melatonin 5 mg tablet 10 mg PO HS PRN (Reason: Insomnia) trazodone 150 mg tablet 150 mg PO HS Qty: 30 5RF benzonatate 100 mg capsule See Rx Instructions PO TID PRN (Reason: cough) Qty: 30 1RF Rx Instructions: 1 to 2 capsules PO TID PRN; tolterodine [Detrol] 1 mg Tablet 1 mg PO BID aspirin 81 mg Tablet,Chewable 81 mg PO BID 42 Days Qty: 84 0RF Discontinued tinidazole 500 mg tablet 2 g PO ONCE Qty: 4 0RF Discharge Orders: Discharge Order (Routine); Ordered 04/28/22 Ordered By: Robert Ann Admission Data Admit Date/Time: 04/24/22 03:30 Attending Provider: Robert Ann Admit Provider: Carlita Avelar Primary Care Provider: Mimi De La Vega Other Providers: Red Valentin ; Carlita Avelar Other Interventions: Discharge Summary Assessment (RN) Last Done: 04/28/22 11:14 Coding Level of Care Code D/C DAY MANAGEMENT >30 MINS Diagnoses Kidney stone N20.0 HTN, goal below 140/90 I10 Anemia D64.9 COPD, mild J44.9 Depression F32.9 Insomnia G47.00 Constipation K59.00 Time Spent (min) 35
[2022-04-30 19:21] LABS: Component 2 DNR; Source LEFT URETERAL STONE
== END 2022-04-28 13:39 | disposition home or self-care (01) | DRG 661 ==
LOC: ED 00:08 → 2N 03:30 → SUATTDRO 03:30 → 2N 05:01

== ENCOUNTER 2023-09-02 05:37 | Observation (INO) ==
--- NOTE | 2023-07-31 10:56 | PAT Medication Instructions ---
Medication Instructions Date of Service July 31, 2023 Home Medications Medication Instructions Recorded venlafaxine 75 mg tablet,extended 75 mg PO QAM #90 tabs 12/09/19 release 24 hr clonazepam 1 mg tablet 1 mg PO HS #30 tabs 01/13/20 aspirin 81 mg chewable tablet 81 mg PO BID 42 days #84 tabs 02/28/20 ipratropium 20 mcg-albuterol 100 1 puff inhalation Q6H PRN Wheezing 07/26/ mcg/actuation mist for inhalation #4 grams (Combivent Respimat) trazodone 150 mg tablet 150 mg PO HS #30 tabs 10/05/20 furosemide 20 mg tablet 20 mg PO DAILY PRN Edema #30 tabs 03/08/22 ropinirole 2 mg tablet 2 mg PO HS #90 tabs 07/09/22 mupirocin 2 % topical ointment 1 applic topical BID #15 grams 09/18/22 neomycin 3.5 mg-polymyxin 10,000 1 drp ophthalmic (eye) Q8H #7.5 mL 02/25/23 unit-hydrocort 10 mg/mL eye drop,susp gabapentin 300 mg capsule 300 mg PO TID #90 caps 07/18/23 gabapentin 400 mg capsule 400 mg PO TID #90 caps 07/23/23 oxycodone 10 mg tablet 10 mg PO TID PRN pain #90 tabs 07/30/23 tolterodine 1 mg tablet (Detrol) 1 mg PO BID venlafaxine 75 mg tablet,extended release 24 hr 75 mg PO QAM clonazepam 1 mg tablet 1 mg PO HS aspirin 81 mg chewable tablet 81 mg PO BID ipratropium 20 mcg-albuterol 100 mcg/actuation mist for inhalation (Combivent Respimat) 1 puff inhalation Q6H PRN melatonin 5 mg tablet 10 mg PO HS PRN trazodone 150 mg tablet 150 mg PO HS furosemide 20 mg tablet 20 mg PO DAILY PRN ropinirole 2 mg tablet 2 mg PO HS mupirocin 2 % topical ointment 1 applic topical BID neomycin 3.5 mg-polymyxin 10,000 unit-hydrocort 10 mg/mL eye drop,susp 1 drp ophthalmic (eye) Q8H gabapentin 300 mg capsule 300 mg PO TID gabapentin 400 mg capsule 400 mg PO TID oxycodone 10 mg tablet 10 mg PO TID PRN ferrous sulfate 325 mg (65 mg iron) tablet 325 mg PO BID quetiapine 25 mg tablet (Seroquel) 75 mg PO HS Check if prescriber has recommendations, otherwise continue as usual quetiapine 25 mg tablet (Seroquel) 75 mg PO HS ASK your prescriber and surgeon aspirin 81 mg chewable tablet 81 mg PO BID STOP taking 24 hours before surgery mupirocin 2 % topical ointment 1 applic topical BID DO NOT take the morning of surgery tolterodine 1 mg tablet (Detrol) 1 mg PO BID furosemide 20 mg tablet 20 mg PO DAILY PRN ferrous sulfate 325 mg (65 mg iron) tablet 325 mg PO BID Take morning of surgery With a small sip of water, OTHERWISE NOTHING TO EAT OR DRINK AFTER MIDNIGHT: venlafaxine 75 mg tablet,extended release 24 hr 75 mg PO QAM ipratropium 20 mcg-albuterol 100 mcg/actuation mist for inhalation (Combivent Respimat) 1 puff inhalation Q6H PRN(use if needed; please bring with you to hospital day of surgery if possible) neomycin 3.5 mg-polymyxin 10,000 unit-hydrocort 10 mg/mL eye drop,susp 1 drp ophthalmic (eye) Q8H gabapentin 300 mg capsule 300 mg PO TID gabapentin 400 mg capsule 400 mg PO TID oxycodone 10 mg tablet 10 mg PO TID PRN(if needed) Take evening before surgery tolterodine 1 mg tablet (Detrol) 1 mg PO BID clonazepam 1 mg tablet 1 mg PO HS ipratropium 20 mcg-albuterol 100 mcg/actuation mist for inhalation (Combivent Respimat) 1 puff inhalation Q6H PRN(if needed) melatonin 5 mg tablet 10 mg PO HS PRN(if needed) trazodone 150 mg tablet 150 mg PO HS ropinirole 2 mg tablet 2 mg PO HS neomycin 3.5 mg-polymyxin 10,000 unit-hydrocort 10 mg/mL eye drop,susp 1 drp ophthalmic (eye) Q8H gabapentin 300 mg capsule 300 mg PO TID gabapentin 400 mg capsule 400 mg PO TID oxycodone 10 mg tablet 10 mg PO TID PRN(if needed) ferrous sulfate 325 mg (65 mg iron) tablet 325 mg PO BID Other Notes If you have any questions please call us at [phone] or [phone] or [phone] or [phone]
--- NOTE | 2023-08-06 09:36 | Anesthesiology Consultation ---
Date of Service August 06, 2023 Assessment & Plan (1) Encounter for pre-operative examination: Plan - difficult intubation: s/p cervical spine surgery-limited ROM. Left reverse TSA: 08/03/19: Glidescope #3, ETT 7.5 at [facility]. Chart Review Chart Review: Acceptable Risk for Surgery and Patient seen in Pre Admission Testing Teaching & Discussion Pre-Anesthesia Teaching/Discussion Notes: Instructed NPO after midnight before surgery, except medications with 15 cc of water. Medication instructions provided according to the PAT guidelines. History Surgery Operation Date: 09/02/23 10:35 Proposed Procedures p Laminectomy 15T Level and Additional Levels (Single Vertebral Segment) Comment L2-3, L3-4 - Omar Oconnor MD Height/Weight Height: 4 ft 11 in Weight: 69.4 kg Allergies Allergy/AdvReac Type Severity Reaction Status Date / Time No Known Drug Allergies Allergy Unknown . Verified 08/06/23 09:04 Medications Home Medications Medication Instructions Recorded Confirmed Last Taken tolterodine 1 mg tablet (Detrol) 1 mg PO BID 08/26/18 08/06/23 02/23/20 venlafaxine 75 mg tablet,extended 75 mg PO QAM #90 tabs 12/09/19 08/06/23 02/23/20 release 24 hr clonazepam 1 mg tablet 1 mg PO HS #30 tabs 01/13/20 08/06/23 02/23/20 aspirin 81 mg chewable tablet 81 mg PO BID 42 days #84 tabs 02/28/20 08/06/23 02/23/20 ipratropium 20 mcg-albuterol 100 1 puff inhalation Q6H PRN Wheezing 07/26/20 08/06/23 Unknown mcg/actuation mist for inhalation #4 grams (Combivent Respimat) melatonin 5 mg tablet 10 mg PO HS PRN Insomnia 10/05/20 08/06/23 Unknown trazodone 150 mg tablet 150 mg PO HS #30 tabs 10/05/20 08/06/23 Unknown furosemide 20 mg tablet 20 mg PO DAILY PRN Edema #30 tabs 03/08/22 08/06/23 Unknown ropinirole 2 mg tablet 2 mg PO HS #90 tabs 07/09/22 08/06/23 Unknown mupirocin 2 % topical ointment 1 applic topical BID #15 grams 09/18/22 08/06/23 Unknown neomycin 3.5 mg-polymyxin 10,000 1 drp ophthalmic (eye) Q8H #7.5 mL 02/25/23 08/06/23 Unknown unit-hydrocort 10 mg/mL eye drop,susp gabapentin 300 mg capsule 300 mg PO TID #90 caps 07/18/23 08/06/23 Unknown gabapentin 400 mg capsule 400 mg PO TID #90 caps 07/23/23 08/06/23 Unknown oxycodone 10 mg tablet 10 mg PO TID PRN pain #90 tabs 07/30/23 08/06/23 Unknown ferrous sulfate 325 mg (65 mg 325 mg PO BID 07/31/23 08/06/23 Unknown iron) tablet quetiapine 25 mg tablet (Seroquel) 75 mg PO HS 07/31/23 08/06/23 Unknown Past Medical History Medical History (Updated 08/06/23 @ 10:47 by Lindsay Trinh PA-C) History of blood transfusion shante-operative Type 2 diabetes mellitus controlled with diet and weight loss Difficult intubation Chronic left hip pain Bilateral renal cysts History of hip fracture (07/01/22) Closed right acetabular Lumbar facet joint syndrome Lumbar pain with radiation down both legs HTN (hypertension) controlled, stable per pt Sleep apnea no device, pt states she was retested after weight loss and no longer needs treatment. Wears O2 at night (2L) for nocturnal hypoxemia. Depression Lumbar spinal stenosis Nocturnal hypoxemia 2 lpm oxygen qhs Vertigo "rarely" positional Dyslipidemia Restless leg syndrome Urge incontinence Asthma controlled-last rescue inhaler use several months ago GERD (gastroesophageal reflux disease) controlled, stable per pt Patient denies h/o stroke, seizures, heart attack, heart failure, or blood clots/DVTs. Patient states other chronic medical conditions are stable without recent change or worsening. Exercise / Class Metabolic Activity II 4-5 Yardwork/Stairs/Walk up hill (denies chest discomfort or shortness of breath with 1 FOS) Past Family History Family History Mother Father Denies family history of Colon cancer Ovarian cancer Prostate cancer Myocardial infarction Breast cancer Colorectal cancer Past Surgical History Surgical History (Updated 08/06/23 @ 10:48 by Lindsay Trinh PA-C) Status post left hip replacement (~02/2020) Hx of plastic surgery panniculectomy History of reverse total replacement of left shoulder joint (~07/2019) History of total left knee replacement 09/25/2018 [facility] History of fusion of cervical spine good ROM History of tubal ligation History of cholecystectomy Hx of breast reduction, elective History of discectomy lumbar, 1979 History of colonoscopy History of repair of rotator cuff Right History of gastric bypass 2009 Past Anesthesia History Difficult Airway (s/p cervical spine surgery, h/o glidescope intubation for TSA) and No Family Hx of Anesthesia Complications History of PONV No Hx of PONV and No Hx of Motion Sickness Social History Smoking Status: Former smoker tobacco type: cigarettes Smoking cigarettes per day: QUIT 15 YEARS AGO Do You Dip or Chew Tobacco: No Smoking End Date: 20 years ago Hx Alcohol Use: No Hx Substance Use: No substance use type: does not use Review of Systems Patient denies chest pain, shortness of breath, dyspnea on exertion, fever, chills, cough, wheezing, or palpitations. Physical Exam Vital Signs Vitals BP 128/80 P 63 TEMP 97.6 SP02 95% on RA RESP 17 Physical Patient resting comfortably in chair in no acute distress, alert and oriented, responding appropriately throughout visit Limited cervical extension range of motion without pain TMD 3.5 finger breadths Mallampati Score 2 Dentition: upper and lower plates; denies chipped or loose teeth, caps/crowns, implants or bridges Lungs: normal respiratory effort. Good air movement, clear throughout to auscultation, no adventitious breath sounds Cardiac: regular rate and rhythm, no murmurs noted Carotid arteries: negative bruit bilat Lab Results Anesthesia Preop Results Results Anesthesia Widget: WBC 4.88 K/ul (4.8-10.8) 08/06/23 Hgb 11.6 g/dl (12.0-16.0) L 08/06/23 Hct 35.9 % (37.0-47.0) L 08/06/23 Plt 197 K/uL (130-400) 08/06/23 Na 142 mmol/L (136-145) 08/06/23 K 3.8 mmol/L (3.5-5.1) 08/06/23 Cl 109 mmol/L (98-107) H 01/03/24 CO2 26 mmol/L (21-32) 08/06/23 BUN 24 mg/dl (6-23) H 08/06/23 Creat 0.63 mg/dl (0.6-1.2) 08/06/23 Glucose Level 84 mg/dl (70-99(Fasting)) 08/06/23 HA1c 5.5 % (4.5-5.6) 08/06/23 Testing Electrocardiogram Date: 08/05/23 Sinus bradycardia, rate 59 bpm
[2023-09-02] MEDS ORDERED: ACETAMINOPHEN 500 MG TAB PO SCH (06:00)
[2023-09-02] MEDS ORDERED: LR 60ML/HR IV SCH (06:00)
[2023-09-02] MEDS ORDERED: LR 15ML/HR IV SCH (06:00)
[2023-09-02] MEDS ORDERED: ceFAZolin 2000MG 2,000 MG/15 ML SYR IV SCH (06:00)
[2023-09-02] MEDS ORDERED: fentaNYL citrate PF 100 MCG/2 ML VIAL IV PRN (06:49)
[2023-09-02] MEDS ORDERED: ePHEDrine sulfate 50 MG/ML AMP IV PRN (06:49)
[2023-09-02] MEDS ORDERED: ATROPINE SULFATE 0.1 MG/ML 10ML SYR IV PRN (06:49)
[2023-09-02] MEDS ORDERED: ONDANSETRON INJ 2 MG/ML 2 ML VIAL IV PRN (06:49)
[2023-09-02] MEDS ORDERED: HYDROmorphone INJ 2 MG/ML SYR/VIAL IV PRN (06:49)
[2023-09-02] MEDS ORDERED: BUPIVACAINE/EPINEPHRINE 0.5% MPF 1:200,000 30 ML VIAL ONE (06:56)
[2023-09-02] MEDS ORDERED: THROMBIN 5000 UNITS KIT ONE (06:56)
[2023-09-02] MEDS ORDERED: VANCOMYCIN HCL 1000MG/20ML VIAL ONE (06:57)
[2023-09-02] MEDS ORDERED: GELATIN SPONGE SZ 100 ONE (06:57)
[2023-09-02] MEDS ORDERED: PROPOFOL IV EMULSION 10 MG/ML 20 ML VIAL IV ONE (07:11)
[2023-09-02] MEDS ORDERED: ROCURONIUM BROMIDE 10 MG/ML 5 ML VIAL IV ONE ×2 (07:11→08:15)
[2023-09-02] MEDS ORDERED: LIDOCAINE 2% 2 ML VIAL/AMP(20MG/ML) INFIL ONE (07:11)
[2023-09-02] MEDS ORDERED: DEXAMETHASONE SOD INJ 4 MG/ML VIAL ONE (07:11)
[2023-09-02] MEDS ORDERED: MIDAZOLAM HCL 1 MG/ML 2ML VIAL ONE (07:11)
[2023-09-02] MEDS ORDERED: ONDANSETRON INJ 2 MG/ML 2 ML VIAL ONE (07:11)
--- NOTE | 2023-09-02 07:11 | History & Physical Bridge Note ---
Date of Service September 02, 2023 History & Physical Bridge Note I have examined the patient, reviewed the History & Physical and in the interval since the performance of the History & Physical I have noted the following changes of clinical significance: no changes noted
[2023-09-02] MEDS ORDERED: fentaNYL citrate PF 100 MCG/2 ML VIAL ONE ×2 (07:12→08:33)
[2023-09-02] MEDS ORDERED: HYDROmorphone INJ 2 MG/ML SYR/VIAL ONE ×2 (08:19→11:03)
[2023-09-02] MEDS ORDERED: hydrALAZINE HCL 20 MG/ML VIAL ONE (08:30)
[2023-09-02] MEDS ORDERED: ePHEDrine sulfate 50 MG/5 ML SYR ONE (09:21)
[2023-09-02] MEDS ORDERED: ACETAMINOPHEN 1000 MG/100 ML IV IV ONE (09:22)
[2023-09-02] MEDS ORDERED: KETOROLAC 30 MG/ML VIAL ONE (10:41)
[2023-09-02] MEDS ORDERED: SUGAMMADEX SODIUM 200 MG/2 ML VIAL IV ONE (10:47)
--- NOTE | 2023-09-02 11:01 | Post Operative Brief Note ---
PG Immediate Post Op with CF Date of Surgery September 02, 2023 Pre & Post Diagnosis Operation Date: 09/02/23 07:15 Pre-Op Diagnosis: Back Pain, Spinal Stenosis of Lumbar Region Post-Op Diagnosis: Back Pain, Spinal Stenosis of Lumbar Region I identified the patient and participated in the time-out.: Yes Procedure Operation Date: 09/02/23 07:15 Actual Procedures p L2-L3 and L3-L4 Lumbar Decompression(Not Applicable) - Omar Oconnor MD Surgeon Omar Oconnor MD Grip Boss none Estimated Blood Loss 50 Findings Consistent with Post-Op Diagnosis
[2023-09-02] MEDS ORDERED: MAGNESIUM HYDROXIDE SUSP 30 ML UDC PO PRN (11:29)
[2023-09-02] MEDS ORDERED: diphenhydrAMINE Capsule 25 MG CAP PO PRN (11:29)
[2023-09-02] MEDS ORDERED: METOCLOPRAMIDE HCL INJ 5 MG/ML 2 ML VIAL IV PRN (11:29)
[2023-09-02] MEDS ORDERED: FAMOTIDINE 20 MG TAB PO PRN (11:29)
[2023-09-02] MEDS ORDERED: PROMETHAZINE HCL 12.5 MG in SODIUM CHLORIDE 0.9% 50 ML IV PRN (11:29)
[2023-09-02] MEDS ORDERED: ONDANSETRON 4 MG OD TAB PO PRN (11:29)
[2023-09-02] MEDS ORDERED: LORazepam 0.5 MG TAB PO PRN (11:29)
[2023-09-02] MEDS ORDERED: DO NOT ADMINISTER FLU VACCINE PRN (11:29)
[2023-09-02] MEDS ORDERED: DO NOT ADMINISTER PNEUMOCOCCAL VACCINE PRN (11:29)
[2023-09-02] MEDS ORDERED: ACETAMINOPHEN 1,000 MG/100 ML VIAL IV PRN (11:29)
[2023-09-02] MEDS ORDERED: NALOXONE HCL 0.4 MG/1 ML VIAL/CARP IV PRN (11:29)
[2023-09-02] MEDS ORDERED: ALUMINUM/MAGNESIUM SUSP 30 ML UDC PO PRN (11:29)
[2023-09-02] MEDS ORDERED: HYDROmorphone INJ 0.5 MG/0.5 ML SYR IV PRN (11:29)
[2023-09-02] MEDS ORDERED: bisacodyL 10 MG SUPP PR PRN (11:29)
[2023-09-02] MEDS ORDERED: SOD PHOSPHATE/SOD BIPHOSPHATE ENEMA 132 ML BTL PR PRN (11:29)
[2023-09-02] MEDS ORDERED: LORazepam 0.5 MG in SYRINGE 0.25 ML IV PRN (11:29)
[2023-09-02] MEDS ORDERED: hydrOXYzine HCl 25 MG TAB PO PRN (11:29)
--- NOTE | 2023-09-02 12:05 | Anesthesiology Progress Note ---
Date of Service September 02, 2023 Anesthesia Post Procedure Vital Signs Vital Signs: Temp Pulse Pulse Resp BP Pulse Ox O2 Del Method 09/02/23 12:00 84 12 136/81 95 Nasal Cannula 09/02/23 11:50 36.4 C L 92 H 18 129/70 95 Nasal Cannula 09/02/23 11:40 89 14 138/74 95 Oxymask 09/02/23 11:30 94 H 12 157/88 H 96 Oxymask 09/02/23 11:20 100 H 16 157/85 H 94 Oxymask 09/02/23 11:10 36.2 C L 105 H 14 122/89 95 Oxymask 09/02/23 06:00 36.7 C 84 16 158/82 H 96 Room Air O2 Flow Rate 09/02/23 12:00 2 09/02/23 11:50 2 09/02/23 11:40 4 09/02/23 11:30 4 09/02/23 11:20 4 09/02/23 11:10 6 09/02/23 06:00 Pain Intensity Bilateral Lower Back: Pain Intensity: 8 Transfer of Care Handoff Completed per policy Notes Mental Status: alert / awake / arousable and participated in evaluation Patient Amnestic to Procedure: Yes Nausea / Vomiting: adequately controlled Pain: adequately controlled Airway Patency, RR, SpO2: stable & adequate BP & HR: stable & adequate Hydration State: stable & adequate Anesthetic Complications: no major complications apparent and Pt Satisfied with anesthetic care
[2023-09-02] MEDS ORDERED: IPRATROPIUM BROMIDE/ALBUTEROL respimat INH INH PRN (12:55)
[2023-09-02] MEDS ORDERED: NEOMYCIN/POLYMYXIN/HYDROCORT OPH SUSP 7.5 ML BTL OP SCH (12:55)
[2023-09-02] MEDS ORDERED: FUROSEMIDE 20 MG TAB PO PRN (12:55)
[2023-09-02] MEDS ORDERED: MELATONIN 3 MG TAB PO PRN (13:41)
[2023-09-02] MEDS: LACTATED RINGER'S 1,000 ML IV SCH ×2 (13:41→20:29)
[2023-09-02] MEDS ORDERED: IPRATROPIUM BROMIDE HFA INHALER INH PRN (13:44)
[2023-09-02] MEDS ORDERED: ALBUTEROL HFA 8 GM INHALER INH PRN (13:44)
[2023-09-02] MEDS ORDERED: GABAPENTIN 300 MG CAP PO SCH (14:00)
[2023-09-02] MEDS: ONDANSETRON INJ 2 MG/ML 2 ML VIAL IV PRN (14:21)
--- NOTE | 2023-09-02 14:40 | Fluoroscopy Report ---
FL spine 1V any level CLINICAL HISTORY: L2-3 AND L3-4 laminectomy COMPARISON STUDY: Lumbar spine 06/12/2023. FLUOROSCOPY TIME: 47 seconds FLUOROSCOPY IMAGES: 1 Ka,r: 27.2 mGy FINDINGS: There are surgical retractors posterior to the L2-L3 and L3-L4 levels. IMPRESSION: Fluoroscopic assistance as above. ACT 112: Negative or not required by law. Electronically signed by: Ye Ayala M.D. 09/02/2023 2:39 PM
--- NOTE | 2023-09-02 15:08 | Hospitalist Consultation ---
Date of Consultation September 02, 2023 Assessment & Plan (1) Scoliosis of lumbar region due to degenerative disease of spine in adult: S/p L2-L3 and L3-L4 lumbar decompression with Dr. Oconnor 09/02 - antibiotics, DVT proh and pain control per primary team. -Hgb prior to surgery 11.6 (hx of iron deficiency anemia) -Currently requiring 2L NC, baseline room air, wean as able -PT/OT *of note, patient home med list includes ASA 81mg BID, this was started after her knee replacement in 2019 and never discontinued. Patient w/ hx of gastric bypass and nose bleeds. This has been discontinued and taken off home medication list. (2) History of gastric bypass: Surgery in 2009 Patient states that since then she has not had to take medication for HTN or DM (3) Anxiety: Continue venlafaxine, Seroquel and trazodone. (4) Restless leg syndrome: Continue Ropinirole (5) SHERIN (obstructive sleep apnea): Continue 2L NC at night (pt baseline) (6) Asthma: Continue PRN inhaler Plan Dispo: continued inpatient stay Thank you for allowing us to participate in the care of this patient, we will continue to follow, please reach out with any questions or concerns Supervising Physician Co-Signing Physician Notes I personally saw and examined the patient. I verified all monsivais points and agree with Flora Mccarthy PA-C with the following exceptions and/or additions: 77-year-old s/p L2-L3 and L3-L4 lumbar decompression performed by Dr. Oconnor earlier today. Estimated blood loss 50 mL. O/E A&Ox3, HS RRR, no murmurs, Chest CTAB, Abdo SNT, b/l plantar/dorsiflex present A/P VTE/Pain/Bowel management per primary ortho spine team History for gastric bypass - stop ASA, appears to be from prior knee replacement and never discontinued. Discontinued and taken off home medication list. Anxiety - no clonazepam noted on PDMP on further questioning she is no longer on this. This has been removed from her medication list. Continue her usual other SHERIN - patient reports this is a historical diagnosis History of Present Illness Reason for Consultation: Medical Management Attending Physician: Omar Oconnor MD History of Present Illness Lurdes is a [id number] female with a past medical history of diabetes, hypertension, sleep apnea, depression, dyslipidemia, urge incontinence and asthma. also with notable history of gastric bypass surgery about 12 years ago. Patient states that after her surgery her diabetes and hypertension have improved. She wears 2 L of oxygen at night, rarely has to wear oxygen during the day. Consulted after having a L2-L4 lumbar decompression with Dr. Oconnor. patient is resting in bed, daughter present at bedside. Does report some pain in her lower back. Currently requiring 2 L of oxygen. Patient lives alone independently, no stairs to entry. Does not drink or smoke. Last moved her bowels prior to coming in for surgery, states mainly diarrhea since her gastric bypass. Allergies Allergy/AdvReac Type Severity Reaction Status Date / Time No Known Drug Allergies Allergy Unknown . Verified 09/02/23 05:56 Home Medications Medication Instructions Recorded Confirmed Type tolterodine 1 mg tablet (Detrol) 1 mg PO BID 08/26/18 09/02/23 History venlafaxine 75 mg tablet,extended 75 mg PO QAM #90 tabs 12/09/19 09/02/23 Rx release 24 hr ipratropium 20 mcg-albuterol 100 1 puff inhalation Q6H PRN Wheezing 07/26/20 09/02/23 Rx mcg/actuation mist for inhalation #4 grams (Combivent Respimat) melatonin 5 mg tablet 10 mg PO HS PRN Insomnia 10/05/20 09/02/23 History trazodone 150 mg tablet 150 mg PO HS #30 tabs 10/05/20 09/02/23 Rx furosemide 20 mg tablet 20 mg PO DAILY PRN Edema #30 tabs 03/08/22 09/02/23 Rx ropinirole 2 mg tablet 2 mg PO HS #90 tabs 07/09/22 09/02/23 Rx mupirocin 2 % topical ointment 1 applic topical BID #15 grams 09/18/22 09/02/23 Rx neomycin 3.5 mg-polymyxin 10,000 1 drp ophthalmic (eye) Q8H #7.5 mL 02/25/23 09/02/23 Rx unit-hydrocort 10 mg/mL eye drop,susp gabapentin 300 mg capsule 300 mg PO TID #90 caps 07/18/23 09/02/23 Rx gabapentin 400 mg capsule 400 mg PO TID #90 caps 07/23/23 09/02/23 Rx oxycodone 10 mg tablet 10 mg PO TID PRN pain #90 tabs 07/30/23 09/02/23 Rx ferrous sulfate 325 mg (65 mg 325 mg PO BID 07/31/23 09/02/23 History iron) tablet quetiapine 25 mg tablet (Seroquel) 75 mg PO HS 07/31/23 09/02/23 History Patient History Medical History (Updated 09/02/23 @ 15:10 by Flora Mccarthy PA-C) History of blood transfusion shante-operative Type 2 diabetes mellitus controlled with diet and weight loss Difficult intubation Chronic left hip pain Bilateral renal cysts History of hip fracture (07/01/22) Closed right acetabular Lumbar facet joint syndrome Lumbar pain with radiation down both legs HTN (hypertension) controlled, stable per pt Sleep apnea no device, pt states she was retested after weight loss and no longer needs treatment. Wears O2 at night (2L) for nocturnal hypoxemia. Depression Lumbar spinal stenosis Nocturnal hypoxemia 2 lpm oxygen qhs Vertigo "rarely" positional Dyslipidemia Restless leg syndrome Urge incontinence Asthma controlled-last rescue inhaler use several months ago GERD (gastroesophageal reflux disease) controlled, stable per pt Surgical History (Updated 09/02/23 @ 15:10 by Flora Mccarthy PA-C) Status post left hip replacement (~02/2020) Hx of plastic surgery panniculectomy History of reverse total replacement of left shoulder joint (~07/2019) History of total left knee replacement 09/25/2018 [facility] History of fusion of cervical spine good ROM History of tubal ligation History of cholecystectomy Hx of breast reduction, elective History of discectomy lumbar, 1979 History of colonoscopy History of repair of rotator cuff Right History of gastric bypass 2009 Family History Mother Father Denies family history of Colon cancer Ovarian cancer Prostate cancer Myocardial infarction Breast cancer Colorectal cancer Social History Smoking Status: Former smoker Tobacco Type: Cigarettes Cigarettes Per Day: QUIT 15 YEARS AGO; Smoking End Date: 20 years ago; Second Hand Exposure: No; Do You Dip or Chew Tobacco: No; Tobacco Cessation Education Requested by Patient: No Hx Alcohol Use: No Hx Substance Use: No Preferred Language: Chinese Communication Ability: Effective Visual Impairment: No Limitations Hearing Ability: Normal Terrazzo Worker Required: No Beliefs That Will Affect Care: None marital status: / marital status details: Three children Current Living Situation: Alone current occupational status: retired current occupation: used to work as a nurses aide at [employer] Other Information That Helps Us Care for You: No Feels Safe at Home: Yes Safety Concerns: Feels Safe At This Time Childhood Exposure to Second-Hand Smoke: No Diet: regular Diet Comment: regular Dental Care, Regularly: No Physical Activity Frequency: Does not Exercise Physical Activity Frequency Comment: Limited by physical condition Seatbelt Use: always Sunscreen Use: No Assistive Devices: Denture - Upper, Denture - Lower, Glasses and Oxygen - at Night Review of Systems Review of Systems: All systems reviewed & are unremarkable except as noted in Subjective Physical Exam Physical Exam: General: NAD, VS as above Resp: normal respiratory effort, lungs clear to auscultation, currently on 2L NC, attempted to wean down during my interview, but saturations dropped and replaced on 2L CV: RRR, no murmur, Abd: normal bowel sounds, non tender, no hepatosplenomegaly Back: dressing c/d/i Extremities: Moves all extremities,distal pulses intact Neuro: A&O x3, Skin: intact, no lesions noted Results & Data Results & Data Vital Signs (Past 12 Hours) Vital Signs Temp Pulse Pulse Resp BP Pulse Ox O2 Del Method 09/02/23 14:00 36.4 C L 93 H 16 135/78 97 Nasal Cannula 09/02/23 13:39 36.5 C 84 16 132/76 95 Nasal Cannula 09/02/23 13:00 Nasal Cannula 09/02/23 13:00 36.5 C 92 H 17 135/85 97 Nasal Cannula 09/02/23 12:30 77 13 139/62 97 Nasal Cannula 09/02/23 12:00 84 12 136/81 95 Nasal Cannula 09/02/23 11:50 36.4 C L 92 H 18 129/70 95 Nasal Cannula 09/02/23 11:40 89 14 138/74 95 Oxymask 09/02/23 11:30 94 H 12 157/88 H 96 Oxymask 09/02/23 11:20 100 H 16 157/85 H 94 Oxymask 09/02/23 11:10 36.2 C L 105 H 14 122/89 95 Oxymask 09/02/23 06:00 36.7 C 84 16 158/82 H 96 Room Air O2 Flow Rate 09/02/23 14:00 2 09/02/23 13:39 2 09/02/23 13:00 2 09/02/23 13:00 2 09/02/23 12:30 2 09/02/23 12:00 2 09/02/23 11:50 2 09/02/23 11:40 4 09/02/23 11:30 4 09/02/23 11:20 4 09/02/23 11:10 6 09/02/23 06:00 PG Care Time/CCT Total # of Minutes Spent Total Time Spent with Patient: Total time spent is greater than 50% in coordination of care (as documented) at patient's floor/unit and/or counseling patient: Coding Level of Care Code 47533 IN/OBS CONSULT LVL 3,45M Diagnoses Scoliosis of lumbar region due to degenerative disease of spine in adult M41.56 History of gastric bypass Z98.84 Anxiety F41.9 Restless leg syndrome G25.81 SHERIN (obstructive sleep apnea) G47.33 Asthma J45.909
[2023-09-02] MEDS: oxyCODONE/ACETAMINOPHEN 5mg/325mg TAB PO PRN (15:56)
[2023-09-02] MEDS: ceFAZolin 1000MG 1,000 MG/7.5 ML SYR IV SCH (16:08)
[2023-09-02] MEDS ORDERED: clonazePAM 1 MG TAB PO PRN (16:16)
[2023-09-02] MEDS: QUEtiapine FUMARATE 25 MG TABLET PO SCH (20:25)
[2023-09-02] MEDS: rOPINIRole HCL 2 MG TABLET PO SCH (20:25)
[2023-09-02] MEDS: traZODone HCL 50 MG TAB PO SCH (20:28)
[2023-09-02] MEDS ORDERED: MUPIROCIN 2% OINT 22 GM TUBE TOP SCH (21:00)
[2023-09-02] MEDS ORDERED: DOCUSATE SODIUM/SENNA 50/8.6MG TAB PO SCH (21:00)
[2023-09-02] MEDS ORDERED: clonazePAM 1 MG TAB PO SCH (21:00)
[2023-09-03] MEDS: ceFAZolin 1000MG 1,000 MG/7.5 ML SYR IV SCH (01:41)
[2023-09-03] MEDS: POLYETHYLENE (MIRALAX) 17 GM PACK PO SCH ×2 (06:04→13:00)
[2023-09-03 06:53] LABS: BUN Creatinine Ratio 22.7 (10-20); Calcium 8.6 mg/dl (8.6-10.3); Creatinine Clr Calc Pharmacy 58.7 ml/min; Est GFR (African American) 97.4 ml/min; Potassium 3.5 mmol/L (3.5-5.1)
[2023-09-03 06:56] LABS: Basophils # (auto) 0.01 K/uL (0.00-0.20); Basophils % (auto) 0.2 %; Eosinophils # (auto) 0.03 K/uL (0.00-0.50); Eosinophils % (auto) 0.6 %; Hematocrit (blood only) 31.1 % (37.0-47.0); Hemoglobin 10.2 g/dl (12.0-16.0); Immature Granulocytes # (auto) 0.01 K/uL (0.01-0.20); Immature Granulocytes % (auto) 0.2 %; Lymphocytes # (auto) 1.23 K/uL (1.20-3.40); Lymphocytes % (auto) 22.7 %; Mean Corpuscular Hemoglobin 29.7 pg (25.0-34.0); Mean Corpuscular Hgb Conc 32.8 g/dL (32.0-36.0); Mean Corpuscular Volume 90.4 fL (80.0-100.0); Mean Platelet Volume 11.2 fL (9.4-12.4); Monocytes # (auto) 0.55 K/uL (0.11-0.59); Monocytes % (auto) 10.1 %; Neutrophils % (auto) 66.2 %; Platelet Count 163 K/uL (130-400); RDW Coefficient of Variation 13.7 % (11.5-14.5); RDW Standard Deviation 45.5 fL (36.4-46.3); Red Blood Count 3.44 M/uL (4.20-5.40); White Blood Count 5.43 K/ul (4.8-10.8)
[2023-09-03] MEDS: VENLAFAXINE HCL XR 75 MG CAPXR PO SCH (08:14)
[2023-09-03] MEDS: OXYBUTYNIN CHLORIDE XL 5 MG TABCR PO SCH (08:14)
[2023-09-03] MEDS: oxyCODONE/ACETAMINOPHEN 5mg/325mg TAB PO PRN ×2 (08:19→19:17)
--- NOTE | 2023-09-03 10:15 | Orthopedic Progress Note ---
Date of Service September 03, 2023 Assessment & Plan (1) Status post lumbar spine surgery for decompression of spinal cord: Overall, she is doing quite well today with good pain control to the lower back. She will work with physical therapy later this morning to work on ambulation and range of motion exercises of the lower extremities. She can be discharged home later this morning pending physical therapy evaluation. She will follow-up with Dr. Oconnor in 2 weeks for postoperative care. Subjective Jayesh Chatman was seen and evaluated at bedside this morning resting comfortably in no apparent distress. She does note some discomfort to the lower lumbar spine but does note that her radicular pain into the left hip/groin has subsided at this present moment. She has been up and out of bed with no significant issues. She has yet to work with physical therapy. She denies any other concerns today. Review of Systems All systems reviewed & are unremarkable except as noted in HPI & below. Physical Exam . On physical examination of the lumbar spine her dressings are clean, dry, intact. She has good and equal motor and sensation nerve function to the bilateral lower extremities. Able to do straight leg raises bilaterally. +2 DP and PT pulses. Less than 2-second capillary refill. Normal sensation. Neurovascular intact. Results & Data Results & Data Laboratory Results . Diagnostic Findings . PG Care Time/CCT Total # of Minutes Spent Total Time Spent with Patient: Total time spent is greater than 50% in coordination of care (as documented) at patient's floor/unit and/or counseling patient: Coding Level of Care Code 46516 Post Operative Follow-Up Diagnoses Status post lumbar spine surgery for decompression of spinal cord Z98.890
--- NOTE | 2023-09-03 12:21 | Hospitalist Progress Note ---
Date of Service September 03, 2023 Assessment & Plan (1) Scoliosis of lumbar region due to degenerative disease of spine in adult: Plan: S/p L2-L3 and L3-L4 lumbar decompression with Dr. Oconnor 09/02 - antibiotics, DVT proh and pain control per primary team. -Hgb prior to surgery 11.6 (hx of iron deficiency anemia) ---> now 10.2 -PT/OT *of note, patient home med list includes ASA 81mg BID, this was started after her knee replacement in 2019 and never discontinued. Patient w/ hx of gastric bypass and nose bleeds. This has been discontinued and taken off home medication list. (2) History of gastric bypass: Plan: Surgery in 2009 Patient states that since then she has not had to take medication for HTN or DM (3) Anxiety: Plan: Continue venlafaxine, Seroquel and trazodone. (4) Restless leg syndrome: Plan: Continue Ropinirole (5) SHERIN (obstructive sleep apnea): Plan: Continue 2L NC at night (pt baseline) (6) Asthma: Plan: Continue PRN inhaler Plan Dispo: continued inpatient stay, medically stable Thank you for allowing us to participate in the care of this patient, we will continue to follow, please reach out with any questions or concerns Admission and Anticipated Discharge Date Admission Date: September 02, 2023 Subjective Patient sitting up in the chair just ate lunch. Reports pain in back but controlled. Good appetite, no bowel movement since surgery. Now on room air. Review of Systems Review of Systems: All systems reviewed & are unremarkable except as noted in Subjective Physical Exam Physical Exam: General: NAD, VS as above Resp: normal respiratory effort, lungs clear to auscultation, on room air CV: RRR, no murmur, Abd: normal bowel sounds, non tender, no hepatosplenomegaly Back: dressing with shadowing and detaching at bottom - RN aware Extremities: Moves all extremities,distal pulses intact Neuro: A&O x3, Skin: intact, no lesions noted Results & Data Results & Data Vital Signs (Past 12 Hours) Vital Signs Temp Pulse Resp BP Pulse Ox O2 Del Method 09/03/23 07:51 36.7 C 73 16 125/65 93 Room Air 09/03/23 03:50 36.4 C L 63 16 130/81 95 Room Air Laboratory Results CBC and chemistry reviewed PG Care Time/CCT Total # of Minutes Spent Total Time Spent with Patient: Total time spent is greater than 50% in coordination of care (as documented) at patient's floor/unit and/or counseling patient: Coding Level of Care Code 20151 SUB INP/OBS CARE 2/35MIN Diagnoses Scoliosis of lumbar region due to degenerative disease of spine in adult M41.56 History of gastric bypass Z98.84 Anxiety F41.9 Restless leg syndrome G25.81 SHERIN (obstructive sleep apnea) G47.33 Asthma J45.909
[2023-09-03] MEDS ORDERED: DOCUSATE SODIUM/SENNA 50/8.6MG TAB PO PRN (16:22)
[2023-09-03] MEDS: ONDANSETRON INJ 2 MG/ML 2 ML VIAL IV PRN (19:20)
[2023-09-03] MEDS: QUEtiapine FUMARATE 25 MG TABLET PO SCH (20:45)
[2023-09-03] MEDS: rOPINIRole HCL 2 MG TABLET PO SCH (20:45)
[2023-09-03] MEDS: traZODone HCL 50 MG TAB PO SCH (20:48)
[2023-09-04] MEDS: OXYBUTYNIN CHLORIDE XL 5 MG TABCR PO SCH (07:41)
[2023-09-04] MEDS: VENLAFAXINE HCL XR 75 MG CAPXR PO SCH (07:41)
[2023-09-04] MEDS: oxyCODONE/ACETAMINOPHEN 5mg/325mg TAB PO PRN (07:43)
--- NOTE | 2023-09-04 09:25 | Orthopedic Progress Note ---
Date of Service September 04, 2023 Assessment & Plan (1) Status post lumbar spine surgery for decompression of spinal cord: Overall, she is doing quite well today with good pain control to the lower back. She will work with physical therapy later this morning to work on ambulation and range of motion exercises of the lower extremities. She can be discharged home later this morning pending how she feels after physical therapy this morning. She may be interested in short term rehab upon discharge. She will d ecide this after she works with physical therapy this morning. She will follow- up with Dr. Oconnor in 2 weeks for postoperative care. Subjective Jayesh Chatman was seen and evaluated at bedside this morning resting comfortably in no apparent distress. She does note some discomfort to the lower lumbar spine but does note that her radicular pain into the left hip/groin has subsided at this present moment. She has been up and out of bed with no significant issues. She has yet to work with physical therapy today. Yesterday she participated and states that this when well. She did not feel comfortable with discharge yesterday. She will work with therapy today and see if she feels a little more comfortable today. She lives alone with multiple dogs in the home. She may want to go to rehab for a little on discharge. She denies any other concerns today. Review of Systems All systems reviewed & are unremarkable except as noted in HPI & below. Physical Exam .On physical examination of the lumbar spine her dressings are clean, dry, intact. She has good and equal motor and sensation nerve function to the bilateral lower extremities. Able to do straight leg raises bilaterally. +2 DP and PT pulses. Less than 2-second capillary refill. Normal sensation. Neurovascular intact. Results & Data Results & Data Laboratory Results . Diagnostic Findings . PG Care Time/CCT Total # of Minutes Spent Total Time Spent with Patient: Total time spent is greater than 50% in coordination of care (as documented) at patient's floor/unit and/or counseling patient: Coding Level of Care Code 54129 Post Operative Follow-Up Diagnoses Status post lumbar spine surgery for decompression of spinal cord Z98.890
--- NOTE | 2023-09-04 13:07 | Hospitalist Progress Note ---
Date of Service September 04, 2023 Assessment & Plan (1) Scoliosis of lumbar region due to degenerative disease of spine in adult: Plan: S/p L2-L3 and L3-L4 lumbar decompression with Dr. Oconnor 09/02 - antibiotics, DVT proh and pain control per primary team. Patient and daughter concerned that perocect was making her nauseous when she tolerates oxycodone fine at home. Switched perocet to oxycodone at their request. -Hgb prior to surgery 11.6 (hx of iron deficiency anemia) ---> now 10.2 -PT/OT - recommending home with home health *of note, patient home med list includes ASA 81mg BID, this was started after her knee replacement in 2019 and never discontinued. Patient w/ hx of gastric bypass and nose bleeds. This has been discontinued and taken off home medication list. (2) History of gastric bypass: Plan: Surgery in 2009 Patient states that since then she has not had to take medication for HTN or DM (3) Anxiety: Plan: Continue venlafaxine, Seroquel and trazodone. (4) Restless leg syndrome: Plan: Continue Ropinirole (5) SHERIN (obstructive sleep apnea): Plan: Continue 2L NC at night (pt baseline) (6) Asthma: Plan: Continue PRN inhaler Plan Dispo: continued inpatient stay, medically stable Thank you for allowing us to participate in the care of this patient, we will sign off. Please reach out with any concerns. Admission and Anticipated Discharge Date Admission Date: September 02, 2023 Subjective sitting up in the chair, just finished breakfast. Feeling well today. Did move her bowels 3 times last night. Pain is well-controlled Review of Systems Review of Systems: All systems reviewed & are unremarkable except as noted in Subjective Physical Exam Physical Exam: General: NAD, VS as above Resp: normal respiratory effort, lungs clear to auscultation, on room air CV: RRR, no murmur, Back: dressing c/d/i Extremities: Moves all extremities,distal pulses intact Neuro: A&O x3, Skin: intact, no lesions noted Results & Data Results & Data Vital Signs (Past 12 Hours) Vital Signs Temp Pulse Resp BP BP Pulse Ox O2 Del Method 09/04/23 09:57 36.7 C 84 16 132/72 111/72 92 09/04/23 08:00 Room Air 09/04/23 07:58 36.7 C 84 16 111/72 92 Room Air PG Care Time/CCT Total # of Minutes Spent Total Time Spent with Patient: Total time spent is greater than 50% in coordination of care (as documented) at patient's floor/unit and/or counseling patient: Coding Level of Care Code 36929 SUB INP/OBS CARE 08/28MIN Diagnoses Scoliosis of lumbar region due to degenerative disease of spine in adult M41.56 History of gastric bypass Z98.84 Anxiety F41.9 Restless leg syndrome G25.81 SHERIN (obstructive sleep apnea) G47.33 Asthma J45.909
[2023-09-04] MEDS: oxyCODONE HCL IR 5 MG TAB (IMMEDIATE RELEASE) PO PRN ×2 (15:58→21:36)
[2023-09-04] MEDS: rOPINIRole HCL 2 MG TABLET PO SCH (21:37)
[2023-09-04] MEDS: QUEtiapine FUMARATE 25 MG TABLET PO SCH (21:37)
[2023-09-04] MEDS: traZODone HCL 50 MG TAB PO SCH (21:37)
[2023-09-05] MEDS: VENLAFAXINE HCL XR 75 MG CAPXR PO SCH (07:51)
[2023-09-05] MEDS: OXYBUTYNIN CHLORIDE XL 5 MG TABCR PO SCH (07:51)
[2023-09-05] MEDS: oxyCODONE HCL IR 5 MG TAB (IMMEDIATE RELEASE) PO PRN (09:21)
--- NOTE | 2023-09-05 11:08 | Operative Report ---
PG Post Operative Report Pre & Post Diagnosis Operation Date: 09/02/23 07:15 Pre-Op Diagnosis: Back Pain, Spinal Stenosis of Lumbar Region Post-Op Diagnosis: Back Pain, Spinal Stenosis of Lumbar Region I identified the patient and participated in the time-out.: Yes Procedure Operation Date: 09/02/23 07:15 Actual Procedures p L2-L3 and L3-L4 Lumbar Decompression(Not Applicable) - Omar Oconnor MD Surgeon Omar Oconnor MD Furnace Converter none Estimated Blood Loss 50 Findings Consistent with Post-Op Diagnosis Specimens none Description of Procedure 1. L2-3 lumbar decompression (20739) 2. L3-4 lumbar decompression (07994) Patient was taken the operating room after adequate anesthesia was carefully positioned on the Lefty frame in the prone position. Preprepped was performed, brought in the fluoroscopy where I then marked for the approximate location of the incision. Prep was performed, and I began the procedure with a midline incision through the region of prior incision which extended from the upper lumbar spine down to the lumbosacral spine. Dissection then continued through the subcutaneous tissues, down to the spinous processes and then onto either side of the spinous processes to expose the lamina and interlaminar regions from L2 to L4 with exposure of the interlaminar regions on both levels. Fluoroscopy was brought in to confirm the location, I then followed this with then beginning the procedure at L3-4 level. Inferior aspect of the spinous process of the L3-4 was removed, and some of the thickened ligamentum flavum over the interspace was then removed. I used a high-speed bur to perform a inferior hemilaminotomy on both sides of the interspace and across superior laminar edge of L4 and along the medial facets. Care was taken to then carefully used curettes to thin the ligamentum flavum, then used combination of Kerrison punches and curettes to remove the thickened ligamentum flavum decompressing the canal bilaterally and also in the lateral recess region until the area was well decompressed. Gelfoam was applied, I then moved to the L2-3 level, on the findings that there was more of an epidural lipomatosis along with some thickened ligamentum flavum causing narrowing, I performed a left-sided hemilaminotomy partial medial facetectomy. I then thinned and remove the ligamentum flavum, I remove the epidural fat in this region, and then decompressed along the medial aspect of the facet and inferior to the superior lamina of L to, the inferior laminar edge, and in a similar fashion heading distally. I then angled the microscope and decompressed across the interspace to the opposite side removing a combination of thickened ligamentum flavum and epidural fat decompressing the entire level. Once completed final inspection not reveal any issues or dural leakage, the areas were irrigated thoroughly followed by injection of local anesthetic and vancomycin powder. The incision was closed with interrupted 0 Vicryl sutures followed by 2-0 Vicryl sutures and heather for the skin. I attest to the content of the Intraoperative Record and any orders documented therein. Any exceptions are noted below.
--- NOTE | 2023-09-05 12:22 | Orthopedic Progress Note ---
Date of Service September 05, 2023 Assessment & Plan (1) Status post lumbar spine surgery for decompression of spinal cord: Overall, she is doing quite well today with good pain control to the lower back. She will work with physical therapy later this morning to work on ambulation and range of motion exercises of the lower extremities. She can be discharged home later this morning pending how she feels after physical therapy. She will decide this after she works with physical therapy this morning. She states that her daughter should be in at some point to be her ride home after discharge. She will follow-up with Dr. Oconnor in 2 weeks for postoperative care. Subjective Jayesh Chatman was seen and evaluated at bedside this morning resting comfortably in no apparent distress. She does note some discomfort to the lower lumbar spine but does note that her radicular pain into the left hip/groin has subsided at this present moment. She has been up and out of bed with no significant issues. She has yet to work with physical therapy today. Yesterday she participated and states that this when well. She did not feel comfortable again with discharge yesterday. She stated she wanted one more night inpatient so her daughter can be home when she discharges. She lives alone with multiple dogs in the home. She states that she is okay with discharge today. She denies any other concerns today. Review of Systems All systems reviewed & are unremarkable except as noted in HPI & below. Physical Exam .On physical examination of the lumbar spine her dressings are clean, dry, intact. She has good and equal motor and sensation nerve function to the bilateral lower extremities. Able to do straight leg raises bilaterally. +2 DP and PT pulses. Less than 2-second capillary refill. Normal sensation. Neurovascular intact. Results & Data Results & Data Laboratory Results . Diagnostic Findings . PG Care Time/CCT Total # of Minutes Spent Total Time Spent with Patient: Total time spent is greater than 50% in coordination of care (as documented) at patient's floor/unit and/or counseling patient: Coding Level of Care Code 88600 Post Operative Follow-Up Diagnoses Status post lumbar spine surgery for decompression of spinal cord Z98.890
--- NOTE | 2023-09-05 12:25 | Discharge Summary ---
Date of Service September 05, 2023 Principal Diagnosis Same as "Discharge Diagnosis" noted below under Discharge Instructions. Discharge Exam .On physical examination of the lumbar spine her dressings are clean, dry, intact. She has good and equal motor and sensation nerve function to the bilateral lower extremities. Able to do straight leg raises bilaterally. +2 DP and PT pulses. Less than 2-second capillary refill. Normal sensation. Neurovascular intact. Discharge Data Consultations 09/02/23 11:29 Consult Hospitalist Routine Procedures Performed Operation Date: 09/02/23 07:15 Actual Procedures p L2-L3 and L3-L4 Lumbar Decompression(Not Applicable) - Omar Oconnor MD Ordered Studies 09/02/23 FL spine 1V any level Routine Hospital Course (1) Status post lumbar spine surgery for decompression of spinal cord: On September 02, 2023 [place] arrived at [facility] and underwent a L2- L3 and L3-L4 lumbar decompression with Dr. Oconnor with no complications. She had a general anesthetic. Postoperatively, she was transferred to the PACU for immediate postoperative care and then transferred to the general orthopedic floor in stable condition. On postoperative day #1, her vital signs were stable and her pain was well-controlled. She participated well with physical therapy working on ambulation and range of motion exercises. At this point, she did not feel safe for discharge so she wanted to stay an extra night to allow for more recovery and pain control. On postoperative day #2, her vital signs were stable and her pain was well-controlled. She participated well with physical therapy working on ambulation and range of motion exercises. At this point, her daughter was also in the room and stated that nobody would be home on this date to take care of her mother. They both verbalized that it would be safer to stay 1 more night to allow for a safe discharge the following day and to allow for more recovery pain control. On postoperative day #3, her vital signs are stable and her pain was well-controlled. She participated well with physical therapy working on ambulation and range of motion exercises. She was then discharged home in stable condition. She will follow-up in [address] Oconnor for postoperative care. PG Care Time/CCT Total # of Minutes Spent Total Time Spent with Patient: Total time spent is greater than 50% in coordination of care (as documented) at patient's floor/unit and/or counseling patient: Discharge Plan Discharge Items Patient Disposition: Home - Home Health Services Reason For Visit: Back Pain, Spinal Stenosis of Lumbar Region, Unspe Discharge Diagnosis: Same Activity: Per Instructions section Non-emergency contact: Surgeon Call non-emergency contact if: your temperature is above 101.5, your wound has increased redness and your wound has increased drainage Follow-up/Referrals: Mimi De La Vega MD [Primary Care Provider] - 09/10/23 9:20 am (DR FREED) Omar Oconnor MD [Surgeon] - Diet: Regular Addtl Attending Provider Instructions: Please follow Dr. Oconnor Post Operative Instructions that were given in the office upon scheduling surgery. -Dressings will be changed prior to discharge. -Keep Surgical site dry for the next 3 days. -May shower after 3 days with no soaking of the surgical site -May leave surgical site open to air if dry. -Cover the surgical site with a bandage if draining or getting caught on clothes. -Take it easy for the next 2 weeks. (Ex: No Lifting, running, bending, or twisting, etc.). New Medication: -Oxycodone: Take one 10 mg tablet by mouth every 6 hours as needed for pain. -You will F/u with Dr. Oconnor in 2 weeks for postoperative care. -If any questions or concerns in the mean time, Reach out to [facility] at [phone] [facility] [employer] Provider Instructions: STOP taking Aspirin 81mg Pending Studies at Discharge: No Stand-Alone Forms: My [facility] [employer], Smoking Cessation Medications and DC Order Prescriptions: New oxycodone 10 mg tablet 10 mg PO Q6H PRN (Reason: pain) Qty: 24 0RF Continued venlafaxine 75 mg tablet extended release 24hr 75 mg PO QAM Qty: 90 3RF furosemide 20 mg tablet 20 mg PO DAILY PRN (Reason: Edema) Qty: 30 5RF ropinirole 2 mg tablet 2 mg PO HS Qty: 90 3RF Combivent Respimat 20-100 mcg/actuation mist 1 puff INHALATION Q6H PRN (Reason: Wheezing) Qty: 4 2RF mupirocin 2 % ointment 1 applic topical BID Qty: 15 1RF Rx Instructions: Use for 2 wks. [id number] 3.5-10,000-10 mg-unit-mg/mL drops,suspension 1 drp ophthalmic (eye) Q8H Qty: 7.5 0RF melatonin 5 mg tablet 10 mg PO HS PRN (Reason: Insomnia) trazodone 150 mg tablet 150 mg PO HS Qty: 30 5RF tolterodine [Detrol] 1 mg Tablet 1 mg PO BID quetiapine [Seroquel] 25 mg tablet 75 mg PO HS ferrous sulfate 325 mg (65 mg iron) tablet 325 mg PO BID Rx Instructions: TAKE ONE TABLET BY MOUTH TWICE DAILY Discontinued gabapentin 300 mg capsule 300 mg PO TID Qty: 90 5RF oxycodone 10 mg tablet 10 mg PO TID PRN (Reason: pain) Qty: 90 0RF gabapentin 400 mg capsule 400 mg PO TID Qty: 90 3RF Admission Data Admit Date/Time: 09/02/23 11:29 Attending Provider: Omar Oconnor Admit Provider: Omar Oconnor Primary Care Provider: Mimi De La Vega Other Interventions: Discharge Summary Assessment (RN) Last Done: 09/04/23 09:57
== END 2023-09-05 12:00 | disposition home health service (06) ==
LOC: 3E 05:37 → ASU 05:37
DX: Z98.84 Bariatric surgery status; M48.061 Spinal stenosis, lumbar region without neurogenic claudication; F41.9 Anxiety disorder, unspecified; Z87.891 Personal history of nicotine dependence; G47.33 Obstructive sleep apnea (adult) (pediatric); J45.909 Unspecified asthma, uncomplicated; G25.81 Restless legs syndrome; Z98.1 Arthrodesis status; Z96.642 Presence of left artificial hip joint; M51.36 Other intervertebral disc degeneration, lumbar region; Z96.611 Presence of right artificial shoulder joint; E11.9 Type 2 diabetes mellitus without complications; E78.5 Hyperlipidemia, unspecified; M41.56 Other secondary scoliosis, lumbar region; Z96.652 Presence of left artificial knee joint; Z79.899 Other long term (current) drug therapy